=== PATIENT | male | born 1965 | race Caucasian/White ===

== ENCOUNTER 2016-11-27 15:23 | Emergency (ER) | payer MEDICAID, MEDICARE ==
[~2016-11-27] VITALS: Ht 167.6 cm; Wt 80.0 kg
[~2016-11-27 15:23] MED LIST: AMLO-15 PO; CARV12.598 PO; renagel PO
[2016-11-27 15:34] VITALS: Ht 167.6 cm; Wt 80.0 kg
[2016-11-27] MEDS ORDERED: ALBUTEROL 0.083% (NEB) 2.5 MG/3 ML AMP NEB STA (17:17)
[2016-11-27] MEDS ORDERED: SEVE800T7 PO (18:07)
[2016-11-27] MEDS ORDERED: CARV12.579 PO (18:08)
[2016-11-27] MEDS ORDERED: LOSA25TA5 PO (18:08)
[2016-11-27] MEDS ORDERED: AMLO-147 PO (18:08)
[2016-11-27] MEDS ORDERED: OMEP20CA16 PO (18:09)
--- NOTE | 2016-11-27 18:25 | RADRPT ---
PROCEDURE: XR Chest. CLINICAL INDICATION: Shortness of breath. TECHNIQUE: Single frontal view. COMPARISON: 07/12/2013. FINDINGS: The right internal jugular vein tunneled dialysis catheter seen on the prior study has been removed. The lungs are clear. The heart is enlarged. There is calcification in the aorta consistent with atherosclerosis. There is no pleural effusion. There is no pneumothorax. IMPRESSION: 1. Right IJ dialysis catheter removed. 2. Cardiomegaly and atherosclerosis. RPTAT: QQ .Caleb Saldana MD, MD Date Time Electronically viewed and signed by .Caleb Saldana MD, MD on 11/27/2016 18:25 .R/
[2016-11-27] MEDS ORDERED: PRED20TA PO (18:42)
[2016-11-27] MEDS ORDERED: AZIT250T94 PO (18:42)
[2016-11-27] MEDS ORDERED: ALBU8.5H3 INH (18:42)
--- NOTE | 2016-11-27 18:48 | ERD ---
ER Documentation Chief Complaint Date/Time DATE: 11/27/16 TIME: 18:46 Chief Complaint COUGH/CONGESTION CHEST WALL PAIN WORSE W/ COUGH "BLOOD IN PHLEGM" [id number] HPI This is a 51-year-old male who just returned home on November 23 from being on a trip in [facility]. Patient states that while he was in [facility] he started having a cough that was dry the progress and to productive cough with green yellowish sputum. He says on occasion will have a slight blood-streaked but there is no gross blood. Is not short of breath or having any chest pain or fever no dyspnea on exertion or orthopnea. The patient had dialysis today. He said his dialysis was uneventful. ROS All systems reviewed and are negative except as per history of present illness. Medications Home Meds Active Scripts Azithromycin* (Zithromax*) 250 Mg Tablet, 250 MG PO .MarvelPACK DIRECTED, #6 TAB TAKE 500 MG (2 TABS) THE FIRST DAY THEN 250 MG (1 TAB) DAYS 2-5 Prov:ZACKARY QUICK DO 11/27/16 Prednisone* (Prednisone*) 20 Mg Tab, 60 MG PO DAILY for 5 Days, TAB Prov:ZACKARY QUICK DO 11/27/16 Albuterol Sulfate* (Proair HFA*) 8.5 Gm Hfa.aer.ad, 2 PUFF INH Q4, #1 INHALER Prov:ZACKARY QUICK DO 11/27/16 Reported Medications Omeprazole* (Omeprazole*) 20 Mg Capsule.dr, 20 MG PO DAILY, #30 CAP 11/27/16 Carvedilol* (Carvedilol*) 12.5 Mg Tablet, 12.5 MG PO BID, #60 TAB 11/27/16 Losartan Potassium* (Losartan Potassium*) 25 Mg Tablet, 25 MG PO DAILY, TAB 11/27/16 Amlodipine Besylate* (Amlodipine Besylate*) 10 Mg Tablet, 10 MG PO DAILY, #30 TAB 11/27/16 Sevelamer Carbonate* (Renvela*) 800 Mg Tablet, 1600 GM PO WITH MEALS, TAB 11/27/16 Discontinued Reported Medications Carvedilol* (Coreg*) 12.5 Mg Tablet, 12.5 MG PO BID 07/26/13 Amlodipine-Benazepril (Amlodipine-Benazepril) 1 Cap Capsule, 1 CAP PO DAILY 07/26/13 [renagel] No Conflict Check, 1600 MG PO TID 07/26/13 Allergies Allergies: Coded Allergies: No Known Allergy (Unverified , 11/27/16) PMhx/Soc History of Surgery: No Anesthesia Reaction: No Hx Neurological Disorder: No Hx Respiratory Disorders: No Hx Cardiac Disorders: Yes (htn) Hx Psychiatric Problems: No Hx Miscellaneous Medical Probl: No Hx Alcohol Use: Yes (a month ago) Hx Substance Use: No Hx Tobacco Use: Yes (2 months ago) Smoking Status: Unknown if ever smoked FmHx Family History: No coronary disease Physical Exam Vitals Vital Signs Date Time Temp Pulse Resp B/P Pulse Ox O2 Delivery O2 Flow Rate FiO2 11/27/16 17:41 75 18 95 21 11/27/16 17:35 98.0 68 22 132/76 96 11/27/16 15:34 98.3 88 22 154/87 92 Physical Exam Const: Well-developed, well-nourished Head: Atraumatic, normocephalic Eyes: Normal Conjunctiva, PERRLA, EOMI, normal sclera, no nystagmus ENT: Normal External Ears, Nose and Mouth, moist mucus membranes. Neck: Full range of motion. No meningismus, no lymphadenopathy. Resp: Clear to auscultation bilaterally, no wheezing, rhonchi, rales Cardio: Regular rate and rhythm, no murmurs, S1 S2 present Abd: Soft, non tender x 4, non distended. Normal bowel sounds, no guarding or rebound, no pulsitile abdominal masses or bruits Skin: No petechiae or rashes, no ecchymosis , no maculopapular rash Back: No midline or flank tenderness Ext: No cyanosis, or edema, FROM x 4, normal inspection, neurovascularly intact x 4 Neur: Awake and alert, STR 5/5 x 4, sensation intact x 4, no focal findings, cerebellum intact Psych: Normal Mood and Affect Results 24 hrs Current Medications Medications (Trade) Dose Ordered Sig/Cecile Route PRN Reason Start Time Stop Time Status Last Admin Dose Admin Albuterol (Proventil 0.083% (Neb)) 7.5 mg ONCE STAT NEB 11/27/16 17:17 11/27/16 17:20 DC 11/27/16 17:38 Procedures/MDM PROCEDURE: XR Chest. CLINICAL INDICATION: Shortness of breath. TECHNIQUE: Single frontal view. COMPARISON: 07/12/2013. FINDINGS: The right internal jugular vein tunneled dialysis catheter seen on the prior study has been removed. The lungs are clear. The heart is enlarged. There is calcification in the aorta consistent with atherosclerosis. There is no pleural effusion. There is no pneumothorax. IMPRESSION: 1. Right IJ dialysis catheter removed. 2. Cardiomegaly and atherosclerosis. RPTAT: QQ .Caleb Saldana MD, MD Date Time Electronically viewed and signed by .Caleb Saldana MD, MD on 11/27/2016 18:25 .R/ CC: ZACKARY QUICK DO Patient received nebulizer treatment and is feeling better. Will discharge home on prednisone albuterol and a Z-Giovany. Feel the patient has bronchitis. No signs of pneumonia Departure Diagnosis: Primary Impression: Bronchitis Condition: Stable Patient Instructions: Bronchitis, Antiobiotic Treatment (Adult) ZACKARY QUICK DO Nov 27, 2016 18:48
[2016-11-27 18:59] VITALS: BP 142/88; PULSE 70; RESP 18; TEMP 97.9
== END 2016-11-27 19:01 | disposition home or self-care (01) ==
LOC: E/R 15:23
DX: J20.9 Acute bronchitis, unspecified (principal); I10 Essential (primary) hypertension; R40.2142 Coma scale, eyes open, spontaneous, at arrival to emergency department; R40.2252 Coma scale, best verbal response, oriented, at arrival to emergency department; R40.2362 Coma scale, best motor response, obeys commands, at arrival to emergency department
CPT/HCPCS: 36415; 71010; 93005; 94664

== ENCOUNTER 2016-12-14 16:35 | Inpatient (IN) | payer MEDICARE, OTHER ==
[~2016-12-14] VITALS: Ht 167.6 cm; Wt 81.6 kg
[~2016-12-14 16:35] MED LIST changes: +ALBU8.5H3 INH; +AMLO-147 PO; -AMLO-15 PO; +AZIT250T94 PO; +CARV12.579 PO; -CARV12.598 PO; +LOSA25TA5 PO; +OMEP20CA16 PO; +PRED20TA PO; +SEVE800T7 PO; -renagel PO
[2016-12-14] MEDS ORDERED: CEFEPIME 2GM/50 ML (PMX) 50 ML IVPB STA (16:59)
[2016-12-14] MEDS ORDERED: VANCOMYCIN 1 GM (PMX) 250 ML IVPB ONE (17:00)
[2016-12-14] MEDS ORDERED: ACETAMINOPHEN 325 MG TAB PO ONE (17:00)
[2016-12-14 17:33] LABS: BASOPHILS % 0.3 % (0.0-2.0); EOSINOPHILS # 0.1 10^3/ul (0.0-0.5); EOSINOPHILS % 1.2 % (0.0-7.0); HEMATOCRIT 25.6 % (42.0-52.0); HEMOGLOBIN 8.3 g/dl (14.0-18.0); LYMPHOCYTES # 0.7 10^3/ul (0.8-2.9); LYMPHOCYTES % 10.9 % (15.0-51.0); MEAN CORPUSCULAR HEMOGLOBIN 30.6 pg (29.0-33.0); MEAN CORPUSCULAR HGB CONC 32.4 g/dl (32.0-37.0); MEAN CORPUSCULAR VOLUME 94.5 fl (82.0-101.0); MEAN PLATELET VOLUME 10.6 fl (7.4-10.4); MONOCYTE # 0.7 10^3/ul (0.3-0.9); MONOCYTES % 10.7 % (0.0-11.0); NEUTROPHIL # 4.9 10^3/ul (1.6-7.5); NEUTROPHILS % 76.3 % (39.0-77.0); PLATELET COUNT 160 10^3/UL (140-415); RED BLOOD COUNT 2.71 10^6/ul (4.70-6.10); RED CELL DISTRIBUTION WIDTH 15.6 % (11.5-14.5); WHITE BLOOD COUNT 6.4 10^3/ul (4.8-10.8)
[2016-12-14 17:47] LABS: INR 1.18; PROTIME 15.1 Sec (12.2-14.2); PT RATIO 1.2
[2016-12-14 17:48] LABS: PARTIAL THROMBOPLASTIN TIME 42.2 Sec (25.0-35.0)
[2016-12-14 17:52] LABS: ALBUMIN 4.1 g/dl (3.3-4.9); ALBUMIN/GLOBULIN RATIO 1.46; BILIRUBIN,INDIRECT 0.2 mg/dl (0-1.1); BILIRUBIN,TOTAL 0.2 mg/dl (0.2-1.3); CALCIUM 9.1 mg/dl (8.4-10.2); CREATININE 7.42 mg/dl (0.61-1.24); POTASSIUM 4.6 mmol/L (3.5-5.1); TOTAL PROTEIN 6.9 g/dl (6.1-8.1)
--- NOTE | 2016-12-14 17:52 | RADRPT ---
PROCEDURE: XR Chest. CLINICAL INDICATION: Cough. Sepsis. TECHNIQUE: Single frontal view. COMPARISON: 11/27/2016. FINDINGS: There is extensive patchy bilateral pulmonary air space disease consistent with bilateral multifocal pneumonia or less likely pulmonary edema. The heart is enlarged. There is calcification in the aorta consistent with atherosclerosis. There is no pleural effusion. There is no pneumothorax. IMPRESSION: 1. Probable bilateral multifocal pneumonia. Less likely pulmonary edema. 2. Cardiomegaly and atherosclerosis. RPTAT: QQ .Caleb Saldana MD, MD Date Time Electronically viewed and signed by .Caleb Saldana MD, MD on 12/14/2016 17:52 .R/
[2016-12-14 18:03] LABS: TROPONIN-I 0.026 ng/ml (0.00-0.12)
[2016-12-14 18:04] LABS: ADD UMIC YES; UR ASCORBIC ACID NEGATIVE (NEGATIVE); UR BACTERIA FEW /HPF (NONE SEEN); UR BILIRUBIN (Dip) NEGATIVE (NEGATIVE); UR BLOOD (Dip) NEGATIVE (NEGATIVE); UR CLARITY SLIGHTLY CLOUDY (CLEAR); UR COLOR YELLOW (YELLOW); UR GLUCOSE (Dip) 2+ mg/dL (NEGATIVE); UR KETONES (Dip) NEGATIVE (NEGATIVE); UR LEUKOCYTE ESTERASE (Dip) NEGATIVE Leu/ul (NEGATIVE); UR NITRITE (Dip) NEGATIVE (NEGATIVE); UR RBC 1 /HPF (0-5); UR SQUAMOUS EPITHELIAL CELL FEW /HPF (FEW); UR TOTAL PROTEIN (Dip) 3+ mg/dl (NEGATIVE); UR UROBILINOGEN (Dip) NEGATIVE (NEGATIVE)
--- NOTE | 2016-12-14 18:05 | ERA ---
ER Documentation Chief Complaint Date/Time DATE: 12/14/16 TIME: 17:58 Chief Complaint coughing up blood since yesterday, sob and cough x 1 month HPI 51-year-old male history of end-stage renal disease on dialysis who had dialysis today who presents with multiple complaints. He describes shortness of breath and cough for approximately 1 month that is worse over the past 24-48 hours. He is found to be significantly hypoxic at triage. He describes cough over the last several days with subjective fevers. The cough is productive of greenish and bloody sputum. He denies any weight loss, night sweats, exposure to tuberculosis recent travel or incarceration. No pleuritic pain or lower extremity swelling. ROS All systems reviewed and are negative except as per history of present illness. Medications Home Meds Active Scripts Albuterol Sulfate* (Proair HFA*) 8.5 Gm Hfa.aer.ad, 2 PUFF INH Q4, #1 INHALER Prov:ZACKARY QUICK DO 11/27/16 Reported Medications Omeprazole* (Omeprazole*) 20 Mg Capsule.dr, 20 MG PO DAILY, #30 CAP 11/27/16 Carvedilol* (Carvedilol*) 12.5 Mg Tablet, 12.5 MG PO BID, #60 TAB 11/27/16 Losartan Potassium* (Losartan Potassium*) 25 Mg Tablet, 25 MG PO DAILY, TAB 11/27/16 Amlodipine Besylate* (Amlodipine Besylate*) 10 Mg Tablet, 10 MG PO DAILY, #30 TAB 11/27/16 Sevelamer Carbonate* (Renvela*) 800 Mg Tablet, 1600 GM PO WITH MEALS, TAB 11/27/16 Discontinued Scripts Azithromycin* (Zithromax*) 250 Mg Tablet, 250 MG PO .KENNY DIRECTED, #6 TAB TAKE 500 MG (2 TABS) THE FIRST DAY THEN 250 MG (1 TAB) DAYS 2-5 Prov:ZACKARY QUICK DO 11/27/16 Prednisone* (Prednisone*) 20 Mg Tab, 60 MG PO DAILY for 5 Days, TAB Prov:ZACKARY QUICK DO 11/27/16 Allergies Allergies: Coded Allergies: No Known Allergy (Unverified , 12/14/16) PMhx/Soc History of Surgery: No Anesthesia Reaction: No Hx Neurological Disorder: No Hx Respiratory Disorders: No Hx Cardiac Disorders: Yes (htn) Hx Psychiatric Problems: No Hx Miscellaneous Medical Probl: No Hx Alcohol Use: Yes (a month ago) Hx Substance Use: No Hx Tobacco Use: Yes (2 months ago) Smoking Status: Current some day smoker FmHx Family History: No diabetes Physical Exam Vitals Vital Signs Date Time Temp Pulse Resp B/P Pulse Ox O2 Delivery O2 Flow Rate FiO2 12/14/16 18:47 99.0 95 25 193/109 94 Nasal Cannula 4.0 12/14/16 17:21 Nasal Cannula 2 12/14/16 16:41 100.1 107 26 185/88 84 Physical Exam General: Well developed, well nourished, no acute distress Head: Normocephalic, atraumatic. Eyes: Pupils equally reactive, EOM intact ENT: Moist mucous membranes Neck: Supple, no lymphadenopathy Respiratory: Rhonchi bilaterally right greater than left Cardiovascular: Slight tachycardia, no murmurs, rubs, or gallops Abdominal: Soft, non-tender, non-distended, no peritoneal signs : Deferred MSK: No edema, no unilateral swelling, 5/5 strength, right upper extremity AV fistula with good bruit and thrill Neurologic: Alert and oriented, moving all extremities, normal speech, no focal weakness, no cerebellar signs Skin: No rash Psych: Normal mood Result Diagram: 12/14/160 12/14/16 1710 Results 24 hrs Laboratory Tests Test 12/14/16 17:10 12/14/16 17:30 White Blood Count 6.410^3/ul Red Blood Count 2.7110^6/ul Hemoglobin 8.3g/dl Hematocrit 25.6% Mean Corpuscular Volume 94.5fl Mean Corpuscular Hemoglobin 30.6pg Mean Corpuscular Hemoglobin Concent 32.4g/dl Red Cell Distribution Width 15.6% Platelet Count 34604^3/UL Mean Platelet Volume 10.6fl Neutrophils % 76.3% Lymphocytes % 10.9% Monocytes % 10.7% Eosinophils % 1.2% Basophils % 0.3% Nucleated Red Blood Cells % 0.0/100WBC Neutrophils # 4.910^3/ul Lymphocytes # 0.710^3/ul Monocytes # 0.710^3/ul Eosinophils # 0.110^3/ul Basophils # 0.010^3/ul Nucleated Red Blood Cells # 0.010^3/ul Prothrombin Time 15.1Sec Prothrombin Time Ratio 1.2 INR International Normalized Ratio 1.18 Activated Partial Thromboplast Time 42.2Sec Sodium Level 141mmol/L Potassium Level 4.6mmol/L Chloride Level 93mmol/L Carbon Dioxide Level 34mmol/L Anion Gap 19 Blood Urea Nitrogen 32mg/dl Creatinine 7.42mg/dl Glucose Level 102mg/dl Lactic Acid Level 1.2mmol/L Calcium Level 9.1mg/dl Total Bilirubin 0.2mg/dl Direct Bilirubin 0.00mg/dl Indirect Bilirubin 0.2mg/dl Aspartate Amino Transf (AST/SGOT) 13IU/L Alanine Aminotransferase (ALT/SGPT) 32IU/L Alkaline Phosphatase 81IU/L Troponin I 0.026ng/ml Total Protein 6.9g/dl Albumin 4.1g/dl Globulin 2.80g/dl Albumin/Globulin Ratio 1.46 Urine Color YELLOW Urine Clarity SLIGHTLY CLOUDY Urine pH 9.0 Urine Specific [place] 1.010 Urine Ketones NEGATIVEmg/dL Urine Nitrite NEGATIVEmg/dL Urine Bilirubin NEGATIVEmg/dL Urine Urobilinogen NEGATIVEmg/dL Urine Leukocyte Esterase NEGATIVELeu/ul Urine Microscopic RBC 1/HPF Urine Microscopic WBC 3/HPF Urine Squamous Epithelial Cells FEW/HPF Urine Bacteria FEW/HPF Urine Hemoglobin NEGATIVEmg/dL Urine Glucose 2+mg/dL Urine Total Protein 3+mg/dl Current Medications Medications (Trade) Dose Ordered Sig/Cecile Route PRN Reason Start Time Stop Time Status Last Admin Dose Admin Cefepime HCl 50 ml @ 100 mls/hr ONCE STAT IVPB 12/14/16 16:59 12/14/16 17:28 DC 12/14/16 17:41 Vancomycin HCl (Vancocin) 250 ml @ 125 mls/hr ONCE ONCE IVPB 12/14/16 17:00 12/14/16 18:59 Acetaminophen (Tylenol Tab) 650 mg ONCE ONCE PO 12/14/16 17:00 12/14/16 17:03 DC 12/14/16 17:40 Ondansetron HCl (Zofran Inj) 4 mg BRIDGE ORDER PRN IV NAUSEA AND/OR VOMITING 12/14/16 19:00 12/15/16 18:59 Acetaminophen (Tylenol Tab) 650 mg ER BRIDGE PRN PO MILD PAIN/FEVER 12/14/16 19:00 12/15/16 18:59 Procedures/MDM EKG, MONITORS, & DIAGNOSTIC IMAGING: EKG: I reviewed and interpreted a 12-lead EKG. Rhythm: Normal sinus rhythm Ectopy: None Intervals: No abnormalities ST segments: No elevations or depressions T waves: No contiguous inversions Chest x-ray: I reviewed and interpreted a 1 view of the chest Mediastinum: No enlargement Cardiac silhouette: cardiomegaly Airspace: Interstitial process, right interstitial infiltrates Bones: No evidence of fracture CTPA IMPRESSION: No CT evidence for pulmonary embolus. Diffuse patchy and confluent perihilar ground-glass opacities with relative sparing of the left lower lobe as well as mediastinal lymphadenopathy may be due to multifocal pneumonia or ARDS among other etiologies. Clinical correlation is recommended. Mild cardiomegaly. These findings were discussed with Rom Hogue over the phone on 2016 at 6:23 PM . RPTAT: EE LAB INTERPRETATION: Anemia, no significant leukocytosis MEDICAL DECISION MAKING: The patient presents the emergency room with low-grade fever, tachycardia, cough that is productive of greenish sputum that is slightly blood-tinged. His symptoms are not consistent with tuberculosis. However, given his presentation I am concerned for possible healthcare associated pneumonia. Additionally, consider pulmonary embolism. The patient's chest x-ray does show significant infiltrates on the right side however with the patient's significant hypoxia I cannot rule out pulmonary embolism. I believe a CTPA to further delineate this process would be appropriate. The patient will will require dialysis within 24 hours. ER COURSE: Empiric antibiotics were provided after blood cultures that include vancomycin and cefepime. The patient was given supplemental oxygen with improvement of his hypoxia. No indication for intubation or BiPAP. The patient has no evidence of pulmonary embolism. No evidence of ARDS clinically. The patient has improved clinically and has no evidence of severe sepsis or septic shock. The patient has a normal lactic acid. Technically the patient has hypoxia making him severe sepsis. I kept the patient and/or family informed of laboratory and diagnostic imaging results throughout the emergency room course. DISPOSITION PLAN: Medical surgical admission for management of healthcare associated pneumonia CONSULTATION: Accepting care team and consultations: I discussed the current laboratory data, diagnostic imaging and emergency care provided. Admitting team: Dr. Jacques Admitting team indication: Insurance directed Sepsis Documentation: Patient's infectious symptoms have not stabilized and the patient is at risk of rapid decompensation. The patient will be admitted for careful hydration, antibiotic therapy, and infectious source control. SEVERE SEPSIS CRITERIA: Infectious source: Healthcare associated pneumonia End organ damage indicated by: Acute Resp Failure (sat < 92% w/o oxygen) SEPSIS MANAGEMENT Time of recognition of severe sepsis/septic shock: The patient does not meet criteria for septic shock 3 HOUR BUNDLE Blood cultures x 2 before broad-spectrum antibiotics: Yes 30 ml/kg NS bolus full 30/kg bolus not provided given the patient's history of end-stage renal disease and concern for volume overload Initial lactate less than 2 Repeat lactate pending repeat SEPTIC SHOCK ASSESSMENT: No lactic acid > 4.0 No persistent hypotension (SBP < 90 or 40 mmHg drop, MAP < 65) despite 30 mL/kg IV fluid bolus VOLUME REASSESSMENT FOR SEPTIC SHOCK: Reevaluation Time: 6:57 PM Temperature of 99.0, pulse 95, respiratory rate 25, blood pressure 193/109, pulse ox 94 Heart Regular rate & rhythm Lungs rhonchi bilaterally Skin Warm & dry Cap Refill Less than 2 seconds Peripheral pulses Radially present PERSISTENT HYPOTENSION TREATMENT: Comfort care No Central line Not Required Vasopressor started Not required I considered further perfusion assessment with CVP measurement, SCVO2, bedside ultrasound volume assessment, passive leg raise, trial of further fluid bolus. And proceeded with gentle fluid bolus of NSS, broad spectrum antbiotics, and admission. CRITICAL CARE Critical care time 35 minutes Emergent fluid management while maintaining close respiratory support. Provision of immediate and broad-spectrum antibiotic therapy. Simultaneous assessment for possible sources in order to direct targeted therapy. Consideration for invasive and chemical support to prevent cardiopulmonary collapse. Critical care time is independent of procedures performed. Departure Diagnosis: Primary Impression: End stage renal disease on dialysis Additional Impressions: Severe sepsis Healthcare-associated pneumonia Condition: Stable ROM KIM MD Dec 14, 2016 18:05
--- NOTE | 2016-12-14 18:23 | RADRPT ---
PROCEDURE: CTA Chest with contrast and with 3-D reconstructions CLINICAL INDICATION: Chest pain, Rule Out Pulmonary Emboli TECHNIQUE: The study was performed utilizing multidetector CT scanner. Direct spiral axial section s were obtained from the thoracic inlet to the upper abdomen with the use of intravenous contrast ma terial. Sagittal, coronal and 3-D reformations were obtained. The images were reviewed on a PACS wor kstation. DLP 643.09 mGycm CTDIvol 28.17, 16.57 mGy One or more of the following dose reduction techniques were used: - Automated exposure control. - Adjustment of the mA and/or kV according to patient size. - Use of iterative reconstruction technique. COMPARISON: No prior studies are available for comparison. FINDINGS: There are no pulmonary emboli. There is a sub-centimeter low density. There are patchy and confluent perihilar ground-glass opacities diffusely with relative sparing of t he left lower lobe. There is no pleural fluid. There is no pneumothorax. There is mild cardiomegaly. There is no pericardial fluid. The aorta is within normal limits. The re is a 1.2 cm in short axis AP window node. There is pretracheal lymphadenopathy measuring up to 1 .2 cm. There is a partially calcified 1.6 cm subcarinal lymph node. There is bilateral hilar lymph adenopathy including a 1.1 cm partially calcified left hilar lymph node on series 3, image 118. The visualized portions of the upper abdomen are unremarkable. Osseous and soft tissue structures are within normal limits. IMPRESSION: No CT evidence for pulmonary embolus. Diffuse patchy and confluent perihilar ground-glass opacities with relative sparing of the left lowe r lobe as well as mediastinal lymphadenopathy may be due to multifocal pneumonia or ARDS among other etiologies. Clinical correlation is recommended. Mild cardiomegaly. These findings were discussed with Rom Hogue over the phone on 12/14/2016 at 6:23 PM . RPTAT: EE Physician Gabino Date Time Electronically viewed and signed by Isael Washburn Physician on 12/14/2016 18:23 RA/
[2016-12-14] MEDS ORDERED: ONDANSETRON 4 MG INJ IV PRN ×2 (19:00→22:00)
[2016-12-14] MEDS ORDERED: ACETAMINOPHEN 325 MG TAB PO PRN ×2 (19:00→22:00)
[2016-12-14] MEDS ORDERED: LABETALOL HCL 20MG INJ IV ONE ×2 (19:30)
[2016-12-14] MEDS ORDERED: VANCOMYCIN IV PER PHARMACY XX SCH (21:00)
--- NOTE | 2016-12-14 21:36 | HP ---
Date/Time of Note Date/Time of Note DATE: 12/14/16 TIME: 21:30 Assessment/Plan VTE Prophylaxis VTE Prophylaxis Intervention: SCD's Assessment/Plan Chief Complaint/Hosp Course This is a 51-year-old male being admitted to the telemetry floor for: #1 Sepsis: Likely secondary to underlying pneumonia. Community-acquired versus healthcare associated pneumonia. Patient does report recent visit to the hospital last 2 weeks. He also reports having traveled to [facility] a month ago when his cough started. X-ray and CT scan did not show any evidence of any focal cavitary lesion. He denies any night sweats or chills or weight loss. At the current time we will treat him with vancomycin IV and cefepime which will be renally dosed. My suspicion for tuberculosis is less likely, however I will check quantiferon gold due to his travel history. Will check sputum sputum cultures as well as blood and urine cultures. We will also order an ABG in the morning. Patient currently right now is not in any distress. There was a mention of ARDS on the CAT scan however I do not suspect that at this time based on the patient's clinical presentation however I will obtain an ABG in the morning. Will consult pulmonology for further treatment strategy. #2 pneumonia: Community acquired versus healthcare associated. Please see #1. #3 end-stage renal disease: Patient received dialysis yesterday. Will continue current home medications. Will renally dose all medications. Potassium is within normal values at this time. BUN is 32. And will consult nephrology. #4 Normocytic anemia: Likely secondary to end-stage renal disease. At the current time we will continue to monitor this. Defer further treatment to nephrology in the setting of end-stage renal disease. Possible Procrit/Epogen injections via nephrology. #5 hypertension: Continue home medications. #6 DVT and GI prophylaxis: SCDs, Protonix Further treatment strategy will be implemented as per the clinical course. Problems: HPI/ROS Admit Date/Time Admit Date/Time Hx of Present Illness Chief complaint: Cough 1 month. 51-year-old male history of end-stage renal disease on dialysis who had dialysis today who presents with multiple complaints. He describes shortness of breath and cough for approximately 1 month that is worse over the past 24-48 hours. He is found to be significantly hypoxic at triage. He describes cough over the last several days with subjective fevers. The cough is productive of greenish and bloody sputum. He denies any weight loss, night sweats, denies any exposure to anyone with tuberculosis, no recent incarcerations. He does report that he went to [facility] approximately 1 month ago and that is where his cough started. No pleuritic pain or lower extremity swelling. He was also seen in the ER approximately 2 weeks ago but was subsequently discharged. Allergies: NKDA Medications: See MARKY TREADWELL Const: As per HPI Eyes : No pain discharge or redness or change in visual acuity ENT: No pain, sore throat, congestion, congestion, dysphagia or discharge Respiratory: As per HPI Cardiovascular: No chest pain, palpitation, PND, or edema GI : no change in appetite, abdominal pain, nausea, vomiting, diarrhea, constipation, or change in the color his stool Genitourinary: No dysuria, hematuria, flank pain , discharge or CVA tenderness Musculoskeletal: No joint pain, back pain, neck pain, restricted range of motion in neck or joints Skin: No rash, bruising or hives Neuro: No headache, dizziness, syncope, seizure, focal weakness Endocrine: No polyuria, polydipsia, temperature intolerance Psych: No hallucination, depression, anxiety or suicidal ideation PMH/Family/Social Past Medical History Hypertension, end-stage renal disease Past Surgical History Right upper extremity AV fistula Family History Significant Family History: no pertinent family hx Social History Alcohol Use: none Smoking Status: Former smoker Drug Use: none Exam/Review of Systems Vital Signs Vitals Vital Signs Date Time Temp Pulse Resp B/P Pulse Ox O2 Delivery O2 Flow Rate FiO2 12/14/16 20:36 173/100 12/14/16 20:23 99.0 88 18 94 Nasal Cannula 4.0 Exam Exam General: Patient lying comfortably in bed in no acute distress HEENT: Atraumatic, normocephalic. The pupils are equal, round and reactive. Extraocular motor are intact Neck: Supple with full range of motion. No rigidity or meningismus Chest: Nontender Lungs: Coarse breath sounds bilaterally Heart: Normal S1-S2, Regular rhythm and rate. No murmur, S3, or S4 Abdomen: Soft , nontender, nondistended , bowel sounds are present. No guarding no rebound tenderness , No masses or organomegaly. No costovertebral temporal angle mass Extremities: Normal to inspection, no edema no cyanosis Neurologic: Normal mental status, speech normal, cranial nerves II through XII are intact, motor and sensory are intact, no focal weakness Additional Comments PROCEDURE: CTA Chest with contrast and with 3-D reconstructions CLINICAL INDICATION: Chest pain, Rule Out Pulmonary Emboli TECHNIQUE: The study was performed utilizing multidetector CT scanner. Direct spiral axial sections were obtained from the thoracic inlet to the upper abdomen with the use of intravenous contrast material. Sagittal, coronal and 3- D reformations were obtained. The images were reviewed on a PACS workstation. DLP 643.09 mGycm CTDIvol 28.17, 16.57 mGy One or more of the following dose reduction techniques were used: - Automated exposure control. - Adjustment of the mA and/or kV according to patient size. - Use of iterative reconstruction technique. COMPARISON: No prior studies are available for comparison. FINDINGS: There are no pulmonary emboli. There is a sub-centimeter low density. There are patchy and confluent perihilar ground-glass opacities diffusely with relative sparing of the left lower lobe. There is no pleural fluid. There is no pneumothorax. There is mild cardiomegaly. There is no pericardial fluid. The aorta is within normal limits. There is a 1.2 cm in short axis AP window node. There is pretracheal lymphadenopathy measuring up to 1.2 cm. There is a partially calcified 1.6 cm subcarinal lymph node. There is bilateral hilar lymphadenopathy including a 1.1 cm partially calcified left hilar lymph node on series 3, image 118. The visualized portions of the upper abdomen are unremarkable. Osseous and soft tissue structures are within normal limits. IMPRESSION: No CT evidence for pulmonary embolus. Diffuse patchy and confluent perihilar ground-glass opacities with relative sparing of the left lower lobe as well as mediastinal lymphadenopathy may be due to multifocal pneumonia or ARDS among other etiologies. Clinical correlation is recommended. Mild cardiomegaly. These findings were discussed with Rom Hogue over the phone on 2016 at 6:23 PM . RPTAT: EE Isael Washburn, Physician Date Time Electronically viewed and signed by Isael Washburn, Physician on 12/14/2016 18:23 RA/ PROCEDURE: XR Chest. CLINICAL INDICATION: Cough. Sepsis. TECHNIQUE: Single frontal view. COMPARISON: 11/27/2016. FINDINGS: There is extensive patchy bilateral pulmonary air space disease consistent with bilateral multifocal pneumonia or less likely pulmonary edema. The heart is enlarged. There is calcification in the aorta consistent with atherosclerosis. There is no pleural effusion. There is no pneumothorax. IMPRESSION: 1. Probable bilateral multifocal pneumonia. Less likely pulmonary edema. 2. Cardiomegaly and atherosclerosis. RPTAT: QQ .Caleb Saldana MD, MD Date Time Electronically viewed and signed by .Caleb Saldana MD, MD on 12/14/2016 17:52 Labs Result Diagram: 12/14/[id number]/[id number] JOSE ROWLAND Dec 14, 2016 21:36
[2016-12-14] MEDS ORDERED: BISACODYL (EC) 5 MG TAB PO PRN (22:00)
[2016-12-14] MEDS ORDERED: DOCUSATE SODIUM 100 MG CAP PO PRN (22:00)
[2016-12-14] MEDS ORDERED: NACL 0.9% 3 ML SYG IV SCH (22:00)
[2016-12-14] MEDS: ALBUTEROL 18 GM INHALER INH SCH (22:45)
[2016-12-14] MEDS: LOSARTAN 25 MG TAB PO SCH (22:46)
[2016-12-14] MEDS: AMLODIPINE 10 MG TAB PO SCH (22:46)
[2016-12-14 23:28] VITALS: TEMP 99.8
[2016-12-15] VITALS (18 sets, daily range): BP systolic 123–169; BP diastolic 70–97; PULSE 76–96; RESP 18–20; Ht 167.6 cm; Wt 81.6 kg
[2016-12-15] MEDS: ALBUTEROL 18 GM INHALER INH SCH ×6 (01:26→20:44)
[2016-12-15] MEDS: PANTOPRAZOLE 40 MG INJ IV SCH (06:33)
[2016-12-15 08:39] LABS: ABNORMAL IP MESSAGE 1; BASOPHILS % 0.3 % (0.0-2.0); EOSINOPHILS # 0.2 10^3/ul (0.0-0.5); EOSINOPHILS % 2.4 % (0.0-7.0); HEMOGLOBIN 7.8 g/dl (14.0-18.0); LYMPHOCYTES # 0.5 10^3/ul (0.8-2.9); LYMPHOCYTES % 8.4 % (15.0-51.0); MEAN CORPUSCULAR HEMOGLOBIN 29.5 pg (29.0-33.0); MEAN CORPUSCULAR HGB CONC 31.2 g/dl (32.0-37.0); MEAN CORPUSCULAR VOLUME 94.7 fl (82.0-101.0); MEAN PLATELET VOLUME 11.2 fl (7.4-10.4); MONOCYTE # 0.7 10^3/ul (0.3-0.9); MONOCYTES % 10.5 % (0.0-11.0); NEUTROPHIL # 4.9 10^3/ul (1.6-7.5); NEUTROPHILS % 77.8 % (39.0-77.0); PLATELET COUNT 141 10^3/UL (140-415); POSITIVE DIFF @See below; RED BLOOD COUNT 2.64 10^6/ul (4.70-6.10); RED CELL DISTRIBUTION WIDTH 15.7 % (11.5-14.5); WHITE BLOOD COUNT 6.3 10^3/ul (4.8-10.8)
[2016-12-15] MEDS: SEVELAMER CARBONATE 0.8 GM PKT PO SCH ×3 (08:58→18:34)
[2016-12-15] MEDS: AMLODIPINE 10 MG TAB PO SCH (08:59)
[2016-12-15] MEDS: LOSARTAN 25 MG TAB PO SCH (08:59)
[2016-12-15 09:19] LABS: ALBUMIN 3.4 g/dl (3.3-4.9); ALBUMIN/GLOBULIN RATIO 1.36; BILIRUBIN,INDIRECT 0.1 mg/dl (0-1.1); BILIRUBIN,TOTAL 0.1 mg/dl (0.2-1.3); CHOL/HDL RATIO 3.5 RATIO; CREATININE 8.93 mg/dl (0.61-1.24); MAGNESIUM 2.2 mg/dl (1.7-2.5); PHOSPHORUS 5.5 mg/dl (2.5-4.9); POTASSIUM 5.3 mmol/L (3.5-5.1); TOTAL PROTEIN 5.9 g/dl (6.1-8.1)
[2016-12-15 09:26] LABS: AADO2 Arterial 86.8 mmHg (7.0-24.0); Allen Test ACCEPTAB; Arterial Base Excess 1.4 mmol/L (-3.0-3); Arterial COHb 0.4 % (0.0-3.0); Arterial Fraction of Oxyhgb 89.5 % (93.0-99.0); Arterial HCO3 27.5 mmol/L (22.0-26.0); Arterial MetHb 0.4 % (0.0-1.5); Arterial Total Hemglobin 8.6 g/dl (12.0-18.0); MODE NASAL CANNULA
[2016-12-15 09:32] LABS: THYROID STIMULATING HORMONE 0.809 MIU/L (0.465-4.680)
--- NOTE | 2016-12-15 15:20 | PN ---
Date/Time of Note Date/Time of Note DATE: 12/15/16 TIME: 15:15 Assessment/Plan VTE Prophylaxis VTE Prophylaxis Intervention: heparin Lines/Catheters IV [facility] Saline Lock Urinary Cath still in place: No Assessment/Plan Chief Complaint/Hosp Course 51 yo male with ESRD on HD who presents with acute hypoxic respiratory failure Acute hypoxic respiratory failure: - Infiltrates and hypoxia unlikely related to volume overload, appears euvolemic - Currently 85% on RA, needs 4 L by NC - Will treat empirically for HAP (recent azithro course completed) with vanco/ cef - AFB r/o - Respiratory isolation - Bronch if needed ESRD: - HD per renal Hypertension: - Continue home meds Hyperphostphatemia: - COntinue phos binders Metabolic acidosis: - Continue alkali Discharge when workup complete and no longer hypoxic Problems: Subjective 24 Hr Interval Summary Free Text/Dictation Slightly improved respiratory status since arrival, but still hypoxic to 85% on RA No phlegm Exam/Review of Systems Vital Signs Vitals Vital Signs Date Time Temp Pulse Resp B/P Pulse Ox O2 Delivery O2 Flow Rate FiO2 12/15/16 12:12 84 12/15/16 11:49 98.6 20 163/86 92 12/15/16 07:30 Nasal Cannula 2.0 Exam Well appearing Nonlabored breathing, lungs clear b/l RRR RUE AV fisulta Flat neck veins without JVD No perihperal edema Acanthosis of neck noted Results Result Diagram: 12/15/16 0756 12/15/16 0756 Results 24 hrs Laboratory Tests Test 12/14/16 17:10 12/14/16 17:30 12/14/16 19:35 12/14/16 20:48 White Blood Count 6.4 Red Blood Count 2.71 L Hemoglobin 8.3 L Hematocrit 25.6 L Mean Corpuscular Volume 94.5 Mean Corpuscular Hemoglobin 30.6 Mean Corpuscular Hemoglobin Concent 32.4 Red Cell Distribution Width 15.6 H Platelet Count 160 Mean Platelet Volume 10.6 H Neutrophils % 76.3 Lymphocytes % 10.9 L Monocytes % 10.7 Eosinophils % 1.2 Basophils % 0.3 Nucleated Red Blood Cells % 0.0 Neutrophils # 4.9 Lymphocytes # 0.7 L Monocytes # 0.7 Eosinophils # 0.1 Basophils # 0.0 Nucleated Red Blood Cells # 0.0 Prothrombin Time 15.1 H Prothrombin Time Ratio 1.2 INR International Normalized Ratio 1.18 Activated Partial Thromboplast Time 42.2 H Sodium Level 141 Potassium Level 4.6 Chloride Level 93 L Carbon Dioxide Level 34 H Anion Gap 19 H Blood Urea Nitrogen 32 H Creatinine 7.42 H Glucose Level 102 Lactic Acid Level 1.2 0.7 0.9 Calcium Level 9.1 Total Bilirubin 0.2 Direct Bilirubin 0.00 Indirect Bilirubin 0.2 Aspartate Amino Transf (AST/SGOT) 13 L Alanine Aminotransferase (ALT/SGPT) 32 Alkaline Phosphatase 81 Troponin I 0.026 Total Protein 6.9 Albumin 4.1 Globulin 2.80 Albumin/Globulin Ratio 1.46 Urine Color YELLOW Urine Clarity SLIGHTLY CLOUDY A Urine pH 9.0 Urine Specific [place] 1.010 Urine Ketones NEGATIVE Urine Nitrite NEGATIVE Urine Bilirubin NEGATIVE Urine Urobilinogen NEGATIVE Urine Leukocyte Esterase NEGATIVE Urine Microscopic RBC 1 Urine Microscopic WBC 3 Urine Squamous Epithelial Cells FEW Urine Bacteria FEW A Urine Hemoglobin NEGATIVE Urine Glucose 2+ H Urine Total Protein 3+ H Test 12/15/16 07:00 12/15/16 07:56 Blood Gas Specimen Source Blood arterial Arterial Blood Date Drawn 12/15/2016 7:30:06 AM Arterial Blood pH (Temp corrected) 7.344 L Arterial Blood pCO2 (Temp correct) 51.7 H Arterial Blood pO2 (Temp corrected) 66.4 L Arterial Blood HCO3 27.5 H Arterial Blood Base Excess 1.4 Arterial Blood Oxygen Saturation 90.2 L [place] Test ACCEPTAB Arterial Blood Gas Puncture Site Left Radial Arterial Blood Carboxyhemoglobin 0.4 Arterial Blood Methemoglobin 0.4 Blood Gas A-a O2 Differential 86.8 H Oxyhemoglobin Percent 89.5 L Total Hemoglobin 8.6 L Blood Gas Temperature 37.0 Blood Gas Modality NASAL CANNULA FiO2 30.0 Blood Gas Notified Whom JLD Blood Gas Notified Time 12/15/2016 7:58:43 AM White Blood Count 6.3 Red Blood Count 2.64 L Hemoglobin 7.8 L Hematocrit 25.0 L Mean Corpuscular Volume 94.7 Mean Corpuscular Hemoglobin 29.5 Mean Corpuscular Hemoglobin Concent 31.2 L Red Cell Distribution Width 15.7 H Platelet Count 141 Mean Platelet Volume 11.2 H Neutrophils % 77.8 H Lymphocytes % 8.4 L Monocytes % 10.5 Eosinophils % 2.4 Basophils % 0.3 Nucleated Red Blood Cells % 0.0 Neutrophils # 4.9 Lymphocytes # 0.5 L Monocytes # 0.7 Eosinophils # 0.2 Basophils # 0.0 Nucleated Red Blood Cells # 0.0 Sodium Level 141 Potassium Level 5.3 H Chloride Level 94 L Carbon Dioxide Level 31 Anion Gap 21 H Blood Urea Nitrogen 48 #H Creatinine 8.93 H Glucose Level 91 Hemoglobin A1c 4.9 Calcium Level 9.0 Phosphorus Level 5.5 H Magnesium Level 2.2 Total Bilirubin 0.1 L Direct Bilirubin 0.00 Indirect Bilirubin 0.1 Aspartate Amino Transf (AST/SGOT) 14 L Alanine Aminotransferase (ALT/SGPT) 27 Alkaline Phosphatase 87 Total Protein 5.9 #L Albumin 3.4 Globulin 2.50 Albumin/Globulin Ratio 1.36 Triglycerides Level 117 Cholesterol Level 117 LDL Cholesterol, Calculated 61 HDL Cholesterol 33 Cholesterol/HDL Ratio 3.5 Thyroid Stimulating Hormone (TSH) 0.809 Medications Medications Current Medications Cefepime HCl (Maxipime 1gm/50 ml (Pmx)) 50 ml @ 100 mls/hr Q24H IVPB ; Start at 17:00 Amlodipine Besylate (Norvasc) 10 mg DAILY PO Last administered on 12/15/16 08: 59; Admin Dose 10 MG; Start 12/14/16 at 22:00 Carvedilol (Coreg) 12.5 mg BID PO Last administered on 12/15/16 08:59; Admin Dose 12.5 MG; Start 12/14/16 at 22:00 Losartan Potassium (Cozaar) 25 mg DAILY PO Last administered on 12/15/16 08:59 ; Admin Dose 25 MG; Start 12/14/16 at 22:00 Ondansetron HCl (Zofran Inj) 4 mg Q6H PRN IV NAUSEA AND/OR VOMITING; Start at 22:00 Acetaminophen (Tylenol Tab) 650 mg Q6H PRN PO PAIN LEVEL 1-3 OR FEVER; Start at 22:00 Docusate Sodium (Colace) 100 mg Q12H PRN PO CONSTIPATION; Start 12/14/16 at 22: 00 Bisacodyl (Dulcolax) 5 mg DAILY PRN PO CONSTIPATION; Start 12/14/16 at 22:00 Pantoprazole (Protonix Iv) 40 mg DAILY@06 IV Last administered on 7/26/17at 06: 33; Admin Dose 40 MG; Start 12/15/16 at 06:00 Miscellaneous Information (*Rx Drug Level Order Reminder*) VANCO RANDOM LEVEL... ONCE ONCE XX ; Start 12/16/16 at 05:00; Stop 12/16/16 at 05:01 LAWRENCE MCDUFFIE MD Dec 15, 2016 15:19
--- NOTE | 2016-12-15 15:32 | CONS ---
Date/Time of Note Date/Time of Note DATE: 12/15/16 TIME: 15:27 Assessment/Plan Assessment/Plan Chief Complaint/Hosp Course Assessment 1. Hypoxemic respiratory distress secondary to extensive bilateral infiltrates appear to be consistent with community-acquired pneumonia however given his background and recent travel history mycobacteria tuberculosis is definitely in the differential. 2. End-stage renal failure hemodialysis 3. Essential hypertension Plan 1. Agree with rule out TB. Serial sputum studies consider QuantiFERON gold. Agree with broad-spectrum antibiotic coverage. If patient rules out for TB and so is not improving will require bronchoscopy. Differential does include cryptogenic organizing pneumonia and/or atypical infection. Consider workup for immunodeficiency. 2. Continue hemodialysis nephrology group 3. Continue hypertensive medications Problems: Consultation Date/Type/Reason Admit Date/Time Date of Consultation: Dec 15, 2016 Type of Consultation: Pulmonary Reason for Consultation Cough shortness of breath hemoptysis Hx of Present Illness 51-year-old gentleman with a history of end-stage renal failure on hemodialysis comes in with one-month history of cough, several day history of increasing sputum production blood-tinged productive cough. No night sweats no nausea no vomiting recent travel history to [facility], no sick contacts respirations no prior history of TB per patient. Continues hemodialysis 3 times a week followed by Dr. Nunez. Chest x-ray here admission shows extensive bilateral infiltrates. As above. Past Medical History End-stage renal failure on hemodialysis Essential hypertension Patient states he is a non-smoker. Quit smoking some time ago. Social History Alcohol Use: none Smoking Status: Former smoker Drug Use: none Exam/Review of Systems Vital Signs Vitals Vital Signs Date Time Temp Pulse Resp B/P Pulse Ox O2 Delivery O2 Flow Rate FiO2 12/15/16 12:45 76 12/15/16 12:45 16 12/15/16 11:49 98.6 163/86 92 12/15/16 07:30 Nasal Cannula 2.0 Exam GENERAL: Moderately ill-appearing young gentleman no accessory muscle use at present. VITAL SIGNS: per chart NECK: Supple. No JVD or lymphadenopathy. CARDIAC EXAM: S1, S2. No added sounds or murmurs. CHEST: Diminished air entry bilaterally few rales ABDOMEN: Soft, nontender. No guarding or rebound. EXTREMITIES: No cyanosis, clubbing or edema. NEUROLOGIC: Generalized weakness. No focal deficits. Results Result Diagram: 12/15/16 0756 12/15/16 0756 Results 24 hrs Laboratory Tests Test 12/14/16 17:10 12/14/16 17:30 12/14/16 19:35 12/14/16 20:48 White Blood Count 6.4 Red Blood Count 2.71 L Hemoglobin 8.3 L Hematocrit 25.6 L Mean Corpuscular Volume 94.5 Mean Corpuscular Hemoglobin 30.6 Mean Corpuscular Hemoglobin Concent 32.4 Red Cell Distribution Width 15.6 H Platelet Count 160 Mean Platelet Volume 10.6 H Neutrophils % 76.3 Lymphocytes % 10.9 L Monocytes % 10.7 Eosinophils % 1.2 Basophils % 0.3 Nucleated Red Blood Cells % 0.0 Neutrophils # 4.9 Lymphocytes # 0.7 L Monocytes # 0.7 Eosinophils # 0.1 Basophils # 0.0 Nucleated Red Blood Cells # 0.0 Prothrombin Time 15.1 H Prothrombin Time Ratio 1.2 INR International Normalized Ratio 1.18 Activated Partial Thromboplast Time 42.2 H Sodium Level 141 Potassium Level 4.6 Chloride Level 93 L Carbon Dioxide Level 34 H Anion Gap 19 H Blood Urea Nitrogen 32 H Creatinine 7.42 H Glucose Level 102 Lactic Acid Level 1.2 0.7 0.9 Calcium Level 9.1 Total Bilirubin 0.2 Direct Bilirubin 0.00 Indirect Bilirubin 0.2 Aspartate Amino Transf (AST/SGOT) 13 L Alanine Aminotransferase (ALT/SGPT) 32 Alkaline Phosphatase 81 Troponin I 0.026 Total Protein 6.9 Albumin 4.1 Globulin 2.80 Albumin/Globulin Ratio 1.46 Urine Color YELLOW Urine Clarity SLIGHTLY CLOUDY A Urine pH 9.0 Urine Specific [place] 1.010 Urine Ketones NEGATIVE Urine Nitrite NEGATIVE Urine Bilirubin NEGATIVE Urine Urobilinogen NEGATIVE Urine Leukocyte Esterase NEGATIVE Urine Microscopic RBC 1 Urine Microscopic WBC 3 Urine Squamous Epithelial Cells FEW Urine Bacteria FEW A Urine Hemoglobin NEGATIVE Urine Glucose 2+ H Urine Total Protein 3+ H Test 12/15/16 07:00 12/15/16 07:56 Blood Gas Specimen Source Blood arterial Arterial Blood Date Drawn 12/15/2016 7:30:06 AM Arterial Blood pH (Temp corrected) 7.344 L Arterial Blood pCO2 (Temp correct) 51.7 H Arterial Blood pO2 (Temp corrected) 66.4 L Arterial Blood HCO3 27.5 H Arterial Blood Base Excess 1.4 Arterial Blood Oxygen Saturation 90.2 L [place] Test ACCEPTAB Arterial Blood Gas Puncture Site Left Radial Arterial Blood Carboxyhemoglobin 0.4 Arterial Blood Methemoglobin 0.4 Blood Gas A-a O2 Differential 86.8 H Oxyhemoglobin Percent 89.5 L Total Hemoglobin 8.6 L Blood Gas Temperature 37.0 Blood Gas Modality NASAL CANNULA FiO2 30.0 Blood Gas Notified Whom JLD Blood Gas Notified Time 12/15/2016 7:58:43 AM White Blood Count 6.3 Red Blood Count 2.64 L Hemoglobin 7.8 L Hematocrit 25.0 L Mean Corpuscular Volume 94.7 Mean Corpuscular Hemoglobin 29.5 Mean Corpuscular Hemoglobin Concent 31.2 L Red Cell Distribution Width 15.7 H Platelet Count 141 Mean Platelet Volume 11.2 H Neutrophils % 77.8 H Lymphocytes % 8.4 L Monocytes % 10.5 Eosinophils % 2.4 Basophils % 0.3 Nucleated Red Blood Cells % 0.0 Neutrophils # 4.9 Lymphocytes # 0.5 L Monocytes # 0.7 Eosinophils # 0.2 Basophils # 0.0 Nucleated Red Blood Cells # 0.0 Sodium Level 141 Potassium Level 5.3 H Chloride Level 94 L Carbon Dioxide Level 31 Anion Gap 21 H Blood Urea Nitrogen 48 #H Creatinine 8.93 H Glucose Level 91 Hemoglobin A1c 4.9 Calcium Level 9.0 Phosphorus Level 5.5 H Magnesium Level 2.2 Total Bilirubin 0.1 L Direct Bilirubin 0.00 Indirect Bilirubin 0.1 Aspartate Amino Transf (AST/SGOT) 14 L Alanine Aminotransferase (ALT/SGPT) 27 Alkaline Phosphatase 87 Total Protein 5.9 #L Albumin 3.4 Globulin 2.50 Albumin/Globulin Ratio 1.36 Triglycerides Level 117 Cholesterol Level 117 LDL Cholesterol, Calculated 61 HDL Cholesterol 33 Cholesterol/HDL Ratio 3.5 Thyroid Stimulating Hormone (TSH) 0.809 Medications Medications Current Medications Cefepime HCl (Maxipime 1gm/50 ml (Pmx)) 50 ml @ 100 mls/hr Q24H IVPB ; Start at 17:00 Amlodipine Besylate (Norvasc) 10 mg DAILY PO Last administered on 12/15/16 08: 59; Admin Dose 10 MG; Start 12/14/16 at 22:00 Carvedilol (Coreg) 12.5 mg BID PO Last administered on 12/15/16 08:59; Admin Dose 12.5 MG; Start 12/14/16 at 22:00 Losartan Potassium (Cozaar) 25 mg DAILY PO Last administered on 12/15/16 08:59 ; Admin Dose 25 MG; Start 12/14/16 at 22:00 Ondansetron HCl (Zofran Inj) 4 mg Q6H PRN IV NAUSEA AND/OR VOMITING; Start at 22:00 Acetaminophen (Tylenol Tab) 650 mg Q6H PRN PO PAIN LEVEL 1-3 OR FEVER; Start at 22:00 Docusate Sodium (Colace) 100 mg Q12H PRN PO CONSTIPATION; Start 12/14/16 at 22: 00 Bisacodyl (Dulcolax) 5 mg DAILY PRN PO CONSTIPATION; Start 12/14/16 at 22:00 Pantoprazole (Protonix Iv) 40 mg DAILY@06 IV Last administered on 12/15/16 06: 33; Admin Dose 40 MG; Start 12/15/16 at 06:00 Miscellaneous Information (*Rx Drug Level Order Reminder*) VANCO RANDOM LEVEL... ONCE ONCE XX ; Start 12/16/16 at 05:00; Stop 12/16/16 at 05:01 UCHE BOUDREAUX MD, [facility] Dec 15, 2016 15:32
[2016-12-15] MEDS: CEFEPIME 1GM/50 ML (PMX) 50 ML IVPB SCH (16:34)
--- NOTE | 2016-12-15 17:57 | CONS ---
DATE OF ADMISSION: 12/14/2016 DATE OF CONSULTATION: 12/15/2016 TYPE OF CONSULTATION: Nephrology. REASON FOR CONSULTATION: Acute hyperkalemia, acute fluid overload, end-stage renal disease on hemodialysis, who presented with shortness of breath. HISTORY OF PRESENT ILLNESS: This is a 51-year-old male who has a past medical history of hypertension, hyperlipidemia, end-stage renal disease on hemodialysis Tuesday, , Tuesday. Patient recently traveled to [facility] and he came back approximately a month before and he started to have this complaint of shortness of breath, generalized weakness, fatigue and cough for the last 1 month, which has been getting worse. Patient was admitted for possible sepsis secondary to underlying pneumonia due to his CT abnormal findings and concern about the recent travel. He is currently put on isolation for TB and Nephrology was consulted because of having acute hyperkalemia, acute fluid overload and need for hemodialysis. At the time of my evaluation, the patient is currently on TB isolation. He is complaining of cough, shortness of breath, weakness, generalized fatigue, lower extremity pain and . Other review of systems has been obtained and is negative except what is mentioned in the History of Present Illness. PAST MEDICAL HISTORY: Notable for hypertension, hyperlipidemia, end-stage renal disease on hemodialysis on Tuesday, and Tuesday. ALLERGIES: NO KNOWN DRUG ALLERGIES. MEDICATION: Have been reviewed. PAST MEDICAL HISTORY: Right upper extremity AV fistula in place. FAMILY HISTORY: No pertinent family history. SOCIAL HISTORY: Patient denies any alcohol use. He is a former smoker. No recreational drug use. PHYSICAL EXAMINATION: VITAL SIGNS: Temperature 99, heart rate 88, respiration 18, blood pressure 173/106, saturation 94 percent on 2 L nasal cannula. GENERAL: Awake, alert, [id number] distress due to the fluid overload and shortness of breath. HEENT: Pupils equal round, reactive to light and accommodation. Extraocular muscles are intact. NECK: Supple. No JVD. No lymphadenopathy. LUNGS: Clear to auscultation. Bibasilar crackles are present, in the mid lung zones and no wheezing. CARDIAC: S1, S2. Tachycardia. No murmur. ABDOMEN: Soft, nontender, nondistended. Bowel sounds are present. EXTREMITIES: No clubbing, cyanosis, or edema. The patient has a right upper extremity AV fistula in place with a good thrill and bruit. NEUROLOGIC: Alert, oriented x3. Cranial nerves 2-12 intact. PSYCHIATRIC: Appropriate affect and mood. LABORATORY/DIAGNOSTIC IMAGIN. CTA chest with contrast negative for any pulmonary embolism. It shows a diffuse patchy and confluent perihilar ground-glass opacity with mild cardiomegaly. 2. WBC 6.3, hemoglobin 7.8, platelet count 141. Sodium 141, potassium 5.3, chloride 94, bicarbonate 31, BUN 48, creatinine 8.9, glucose 91, calcium 9. LFTs are normal. Urinalysis has a few bacteria, 2+ glucose, 3+ protein, no infections. PT/PTT/INR are normal. IMPRESSION: This is a 51-year-old male who is being admitted for sepsis, possibly secondary to underlying pneumonia and he is currently on tuberculosis isolation to rule out active tuberculosis due to the recent history of travel and Nephrology has been consulted for maintenance hemodialysis in a chronic hemodialysis patient who presented with acute overload, acute pulmonary edema and acute hyperkalemia. 1. Acute hyperkalemia. 2. Acute fluid overload. 3. End-stage renal disease on hemodialysis Tuesday, , Tuesday. 4. Sepsis, likely secondary to underlying pneumonia. 5. I am concerned about community-acquired pneumonia. 6. Rule out tuberculosis. 7. History of hypertension. 8. History of hyperlipidemia. 9. History of recent travel to [facility]. PLAN: 1. Thank you, Dr. Olivia Jacques, for this consultation. I will arrange the patient's dialysis to be done today as soon as possible due to the fluid overload and acute hyperkalemia. 2. Continue IV antibiotics with cefepime, vancomycin to cover him for pneumonia. 3. Continue the Cozaar 25 mg p.o. daily. We will monitor his potassium. 4. Continue the other medication of amlodipine and Cozaar. 5. The patient's regular schedule for dialysis is Tuesday, , Tuesday, so we will order another hemodialysis to be done tomorrow morning. 6. Renvela 1600 mg p.o. t.i.d. with meals for hyperphosphatemia. 7. Patient currently seen in telemetry floor and he will be followed up along with his course in the hospital. Once again, thank you, for the consultation. I will continue to follow this patient while being in the hospital. Dictated By: Umesh Perry MD /alyssa/rohini /Document#: [id number]
[2016-12-15] MEDS ORDERED: IODIXANOL LOCM 100 ML BTL ONE (18:02)
[2016-12-15] MEDS ORDERED: SOD CHLORIDE 0.9% 100 ML ONE (18:02)
[2016-12-15] MEDS ORDERED: LABETALOL HCL 20MG INJ ONE (18:02)
[2016-12-16] VITALS (19 sets, daily range): BP systolic 89–154; BP diastolic 57–84; PULSE 60–90; RESP 16–19
[2016-12-16] MEDS: ALBUTEROL 18 GM INHALER INH SCH ×3 (00:22→20:48)
[2016-12-16] MEDS: PANTOPRAZOLE 40 MG INJ IV SCH (05:10)
[2016-12-16 05:44] LABS: BASOPHILS % 0.1 % (0.0-2.0); EOSINOPHILS # 0.2 10^3/ul (0.0-0.5); EOSINOPHILS % 2.5 % (0.0-7.0); HEMATOCRIT 23.2 % (42.0-52.0); HEMOGLOBIN 7.4 g/dl (14.0-18.0); LYMPHOCYTES # 0.8 10^3/ul (0.8-2.9); MEAN CORPUSCULAR HEMOGLOBIN 29.8 pg (29.0-33.0); MEAN CORPUSCULAR HGB CONC 31.9 g/dl (32.0-37.0); MEAN CORPUSCULAR VOLUME 93.5 fl (82.0-101.0); MEAN PLATELET VOLUME 11.5 fl (7.4-10.4); MONOCYTE # 0.6 10^3/ul (0.3-0.9); MONOCYTES % 8.3 % (0.0-11.0); NEUTROPHIL # 5.3 10^3/ul (1.6-7.5); NEUTROPHILS % 77.4 % (39.0-77.0); PLATELET COUNT 152 10^3/UL (140-415); RED BLOOD COUNT 2.48 10^6/ul (4.70-6.10); RED CELL DISTRIBUTION WIDTH 15.4 % (11.5-14.5); WHITE BLOOD COUNT 6.8 10^3/ul (4.8-10.8)
[2016-12-16 06:19] LABS: CALCIUM 8.9 mg/dl (8.4-10.2); CREATININE 9.17 mg/dl (0.61-1.24); POTASSIUM 4.8 mmol/L (3.5-5.1)
[2016-12-16] MEDS: SEVELAMER CARBONATE 0.8 GM PKT PO SCH ×3 (08:13→17:42)
[2016-12-16] MEDS: LOSARTAN 25 MG TAB PO SCH (09:04)
[2016-12-16] MEDS: AMLODIPINE 10 MG TAB PO SCH (09:05)
[2016-12-16] MEDS ORDERED: VANCOMYCIN 1 GM in NS 250 ML IVPB ONE (10:00)
--- NOTE | 2016-12-16 10:30 | CONS ---
Date/Time of Note Date/Time of Note DATE: 12/16/16 TIME: 10:22 Assessment/Plan Assessment/Plan Chief Complaint/Hosp Course 1) interstitial pneumonitis this is more likely viral, atypical or some organizing pneumonitis, less likely would be fungal or TB or auto-immune although pt got treated for atypical pneumonia will change vanco to doxy to cover MRSA and atypicals ok to continue cefepime, but doubt this is hospital acquired pneumonia quant TB gold has been sent continue with induced sputums for specimens will order ESR, LORIN, ANCA, LDH atypical pneumonia serologies have been ordered will order beta d glucan for fungal viral PCR of nares was ordered 2) ESRD on dialysis Problems: Consultation Date/Type/Reason Admit Date/Time 12/14/16 Date of Consultation: Dec 16, 2016 Type of Consultation: ID Hx of Present Illness pt was traveling in [facility] left on 11/08/16 and his family got sick with URI including himself he started with fevers, cough, sometimes yellow phlegm. he got sick on 11/17/16 he [place] the [place] on 11/23/16 and went to [facility] ER on 10/28/16 his CXR was clear at that time and he was given a z-pack which he took his symptoms have progressed and he has had off an on fevers with chills, no NS he got more SOB He denies COHEN, N, V, D, joint pains, rashes, dysuria, dysphagia, sore throat, coryza pt is breathing easier today no hx of HIV and HIV ab was neg on 11/27/16 Past Medical History ESRD, HTN Past Surgical History RUE AV fistula Social History Alcohol Use: none Smoking Status: Former smoker Drug Use: none Exam/Review of Systems Vital Signs Vitals Vital Signs Date Time Temp Pulse Resp B/P Pulse Ox O2 Delivery O2 Flow Rate FiO2 12/16/16 09:13 Nasal Cannula 2.0 12/16/16 08:12 89 12/16/16 07:46 98.4 16 154/83 91 Intake and Output 12/15/16 12/15/16 12/16/16 15:00 23:00 07:00 Intake Total 400 ml 570 ml 220 ml Output Total 2400 ml Balance -2000 ml 570 ml 220 ml Exam Constitutional: alert, oriented Head: normocephalic ENMT: mucosa pink and moist Neck: supple Respiratory: clear to auscultation Cardiovascular: regular rate and rhythm Gastrointestinal: other (slight tenderness to mid-epigastric and RUQ), soft Musculoskeletal: nl extremities to inspection Neurological: other (non focal) Results Result Diagram: 12/16/16 0505 12/16/16 0505 Results 24 hrs Laboratory Tests Test 12/15/16 15:52 12/16/16 05:05 HIV (1&2) Antibody NEGATIVE NEGATIVE White Blood Count 6.8 Red Blood Count 2.48 L Hemoglobin 7.4 L Hematocrit 23.2 L Mean Corpuscular Volume 93.5 Mean Corpuscular Hemoglobin 29.8 Mean Corpuscular Hemoglobin Concent 31.9 L Red Cell Distribution Width 15.4 H Platelet Count 152 Mean Platelet Volume 11.5 H Neutrophils % 77.4 H Lymphocytes % 11.0 L Monocytes % 8.3 Eosinophils % 2.5 Basophils % 0.1 Nucleated Red Blood Cells % 0.0 Neutrophils # 5.3 Lymphocytes # 0.8 Monocytes # 0.6 Eosinophils # 0.2 Basophils # 0.0 Nucleated Red Blood Cells # 0.0 Sodium Level 140 Potassium Level 4.8 Chloride Level 95 L Carbon Dioxide Level 29 Anion Gap 21 H Blood Urea Nitrogen 41 H Creatinine 9.17 H Glucose Level 99 Calcium Level 8.9 Random Vancomycin Level 10.4 Medications Medications Current Medications Cefepime HCl (Maxipime 1gm/50 ml (Pmx)) 50 ml @ 100 mls/hr Q24H IVPB Last administered on 12/15/16 16:34; Admin Dose 100 MLS/HR; Start 12/15/16 at 17:00 Amlodipine Besylate (Norvasc) 10 mg DAILY PO Last administered on 12/16/16 09: 05; Admin Dose 10 MG; Start 12/14/16 at 22:00 Carvedilol (Coreg) 12.5 mg BID PO Last administered on 12/16/16 09:05; Admin Dose 12.5 MG; Start 12/14/16 at 22:00 Losartan Potassium (Cozaar) 25 mg DAILY PO Last administered on 12/16/16 09:04 ; Admin Dose 25 MG; Start 12/14/16 at 22:00 Ondansetron HCl (Zofran Inj) 4 mg Q6H PRN IV NAUSEA AND/OR VOMITING; Start at 22:00 Acetaminophen (Tylenol Tab) 650 mg Q6H PRN PO PAIN LEVEL 1-3 OR FEVER; Start at 22:00 Docusate Sodium (Colace) 100 mg Q12H PRN PO CONSTIPATION; Start 12/14/16 at 22: 00 Bisacodyl (Dulcolax) 5 mg DAILY PRN PO CONSTIPATION; Start 12/14/16 at 22:00 Pantoprazole (Protonix Iv) 40 mg DAILY@06 IV Last administered on 12/16/16t 05: 10; Admin Dose 40 MG; Start 12/15/16 at 06:00 Doxycycline Hyclate (Vibramycin) 100 mg BID PO ; Start 12/16/16 at 10:30 JESSICA MILLER MD Dec 16, 2016 10:30
--- NOTE | 2016-12-16 11:03 | CONS ---
Date/Time of Note Date/Time of Note DATE: 12/16/16 TIME: 11:02 Consult Date/Type/Reason Admit Date/Time Dec 14, 2016 at 21:49 Initial Consult Date 12/16/16 Type of Consultation: Pulmonary Subjective Little better this morning less respiratory distress Objective Vital Signs Date Time Temp Pulse Resp B/P Pulse Ox O2 Delivery O2 Flow Rate FiO2 12/16/16 09:13 Nasal Cannula 2.0 12/16/16 08:12 89 12/16/16 07:46 98.4 16 154/83 91 Intake and Output 12/15/16 12/15/16 12/16/16 15:00 23:00 07:00 Intake Total 400 ml 570 ml 220 ml Output Total 2400 ml Balance -2000 ml 570 ml 220 ml Exam GENERAL: Well-nourished well-developed gentleman comfortable at rest VITAL SIGNS: per chart NECK: Supple. No JVD or lymphadenopathy. CARDIAC EXAM: S1, S2. No added sounds or murmurs. CHEST: Diminished air entry bilaterally few rales ABDOMEN: Soft, nontender. No guarding or rebound. EXTREMITIES: No cyanosis, clubbing or edema. NEUROLOGIC: Generalized weakness. No focal deficits. Results/Medications Result Diagram: 12/16/16 0505 12/16/16 0505 Results 24 hrs Laboratory Tests Test 12/15/16 15:52 12/16/16 05:05 HIV (1&2) Antibody NEGATIVE NEGATIVE White Blood Count 6.8 Red Blood Count 2.48 L Hemoglobin 7.4 L Hematocrit 23.2 L Mean Corpuscular Volume 93.5 Mean Corpuscular Hemoglobin 29.8 Mean Corpuscular Hemoglobin Concent 31.9 L Red Cell Distribution Width 15.4 H Platelet Count 152 Mean Platelet Volume 11.5 H Neutrophils % 77.4 H Lymphocytes % 11.0 L Monocytes % 8.3 Eosinophils % 2.5 Basophils % 0.1 Nucleated Red Blood Cells % 0.0 Neutrophils # 5.3 Lymphocytes # 0.8 Monocytes # 0.6 Eosinophils # 0.2 Basophils # 0.0 Nucleated Red Blood Cells # 0.0 Sodium Level 140 Potassium Level 4.8 Chloride Level 95 L Carbon Dioxide Level 29 Anion Gap 21 H Blood Urea Nitrogen 41 H Creatinine 9.17 H Glucose Level 99 Calcium Level 8.9 Random Vancomycin Level 10.4 Medications Current Medications Cefepime HCl (Maxipime 1gm/50 ml (Pmx)) 50 ml @ 100 mls/hr Q24H IVPB Last administered on 12/15/16 16:34; Admin Dose 100 MLS/HR; Start 12/15/16 at 17:00 Amlodipine Besylate (Norvasc) 10 mg DAILY PO Last administered on 12/16/16 09: 05; Admin Dose 10 MG; Start 12/14/16 at 22:00 Carvedilol (Coreg) 12.5 mg BID PO Last administered on 12/16/16 09:05; Admin Dose 12.5 MG; Start 12/14/16 at 22:00 Losartan Potassium (Cozaar) 25 mg DAILY PO Last administered on 12/16/16 09:04 ; Admin Dose 25 MG; Start 12/14/16 at 22:00 Ondansetron HCl (Zofran Inj) 4 mg Q6H PRN IV NAUSEA AND/OR VOMITING; Start at 22:00 Acetaminophen (Tylenol Tab) 650 mg Q6H PRN PO PAIN LEVEL 1-3 OR FEVER; Start at 22:00 Docusate Sodium (Colace) 100 mg Q12H PRN PO CONSTIPATION; Start 12/14/16 at 22: 00 Bisacodyl (Dulcolax) 5 mg DAILY PRN PO CONSTIPATION; Start 12/14/16 at 22:00 Pantoprazole (Protonix Iv) 40 mg DAILY@06 IV Last administered on 12/16/16 05: 10; Admin Dose 40 MG; Start 12/15/16 at 06:00 Doxycycline Hyclate (Vibramycin) 100 mg BID PO ; Start 12/16/16 at 10:30 Assessment/Plan Chief Complaint/Hosp Course Assessment 1. Hypoxemic respiratory distress secondary to extensive bilateral infiltrates appear to be consistent with community-acquired pneumonia however given his background and recent travel history mycobacteria tuberculosis is of concern. 2. End-stage renal failure hemodialysis 3. Essential hypertension Plan 1. Agree with rule out TB. Continue ID recommendations, appreciated 2. Continue hemodialysis nephrology group 3. Continue hypertensive medications Problems: UCHE BOUDREAUX MD, [facility] Dec 16, 2016 11:03
[2016-12-16] MEDS: DOXYCYCLINE 100 MG TAB PO SCH ×2 (11:10→20:48)
[2016-12-16] MEDS: CEFEPIME 1GM/50 ML (PMX) 50 ML IVPB SCH (17:32)
--- NOTE | 2016-12-16 17:32 | PN ---
Date/Time of Note Date/Time of Note DATE: 12/16/16 TIME: 17:30 Assessment/Plan VTE Prophylaxis VTE Prophylaxis Intervention: heparin Lines/Catheters IV [facility] Saline Lock Urinary Cath still in place: No Assessment/Plan Chief Complaint/Hosp Course 51 yo male with ESRD on HD who presents with acute hypoxic respiratory failure Acute hypoxic respiratory failure: - Improvement clinically suggests bacterial pneumonia - Infiltrates and hypoxia unlikely related to volume overload, appears euvolemic - Abx per ID: doxy and zosyn - AFB r/o - Respiratory isolation - Bronch if needed ESRD: - HD per renal Hypertension: - Continue home meds Hyperphostphatemia: - COntinue phos binders Metabolic acidosis: - Continue alkali Discharge when workup complete and no longer hypoxic Problems: Subjective 24 Hr Interval Summary Free Text/Dictation Sympmatically again improved today Oxygenation also improving to 90% on RA continued bothresome dry cough Exam/Review of Systems Vital Signs Vitals Vital Signs Date Time Temp Pulse Resp B/P Pulse Ox O2 Delivery O2 Flow Rate FiO2 12/16/16 16:12 85 12/16/16 15:50 98.2 18 133/78 91 12/16/16 13:05 Room Air 12/16/16 09:13 2.0 Intake and Output 12/15/16 12/15/16 12/16/16 15:00 23:00 07:00 Intake Total 400 ml 570 ml 220 ml Output Total 2400 ml Balance -2000 ml 570 ml 220 ml Exam Nontoxic Well appearing Clear lungs AV fistula Euvolemic Results Result Diagram: 12/16/16 0505 12/16/16 0505 Results 24 hrs Laboratory Tests Test 12/16/16 05:05 White Blood Count 6.8 Red Blood Count 2.48 L Hemoglobin 7.4 L Hematocrit 23.2 L Mean Corpuscular Volume 93.5 Mean Corpuscular Hemoglobin 29.8 Mean Corpuscular Hemoglobin Concent 31.9 L Red Cell Distribution Width 15.4 H Platelet Count 152 Mean Platelet Volume 11.5 H Neutrophils % 77.4 H Lymphocytes % 11.0 L Monocytes % 8.3 Eosinophils % 2.5 Basophils % 0.1 Nucleated Red Blood Cells % 0.0 Neutrophils # 5.3 Lymphocytes # 0.8 Monocytes # 0.6 Eosinophils # 0.2 Basophils # 0.0 Nucleated Red Blood Cells # 0.0 Sodium Level 140 Potassium Level 4.8 Chloride Level 95 L Carbon Dioxide Level 29 Anion Gap 21 H Blood Urea Nitrogen 41 H Creatinine 9.17 H Glucose Level 99 Calcium Level 8.9 Random Vancomycin Level 10.4 HIV (1&2) Antibody NEGATIVE Medications Medications Current Medications Cefepime HCl (Maxipime 1gm/50 ml (Pmx)) 50 ml @ 100 mls/hr Q24H IVPB Last administered on 12/15/16 16:34; Admin Dose 100 MLS/HR; Start 12/15/16 at 17:00 Amlodipine Besylate (Norvasc) 10 mg DAILY PO Last administered on 12/16/16 09: 05; Admin Dose 10 MG; Start 12/14/16 at 22:00 Carvedilol (Coreg) 12.5 mg BID PO Last administered on 12/16/16 09:05; Admin Dose 12.5 MG; Start 12/14/16 at 22:00 Losartan Potassium (Cozaar) 25 mg DAILY PO Last administered on 12/16/16 09:04 ; Admin Dose 25 MG; Start 12/14/16 at 22:00 Ondansetron HCl (Zofran Inj) 4 mg Q6H PRN IV NAUSEA AND/OR VOMITING; Start at 22:00 Acetaminophen (Tylenol Tab) 650 mg Q6H PRN PO PAIN LEVEL 1-3 OR FEVER; Start at 22:00 Docusate Sodium (Colace) 100 mg Q12H PRN PO CONSTIPATION; Start 12/14/16 at 22: 00 Bisacodyl (Dulcolax) 5 mg DAILY PRN PO CONSTIPATION; Start 12/14/16 at 22:00 Pantoprazole (Protonix Iv) 40 mg DAILY@06 IV Last administered on 12/16/16 05: 10; Admin Dose 40 MG; Start 12/15/16 at 06:00 Doxycycline Hyclate (Vibramycin) 100 mg BID PO Last administered on 12/16/16 11:10; Admin Dose 100 MG; Start 12/16/16 at 10:30 LAWRENCE MCDUFFIE MD Dec 16, 2016 17:32
--- NOTE | 2016-12-16 18:30 | CONS ---
Date/Time of Note Date/Time of Note DATE: 12/16/16 TIME: 18:24 Assessment/Plan Assessment/Plan Chief Complaint/Hosp Course 1. End-stage renal disease on maintenance hemodialysis Tuesday. He has hemodialysis ordered for today. This, being , is his routine today for hemodialysis. He is back on his regular scheduled days. 2. Respiratory failure with interstitial pneumonitis on chest x-ray. Probably viral pneumonia as the rest of his family was sick while he was visiting in [facility]. They have recovered he has remained ill. I doubt this is fluid overload as he has been adequately dialyzed. 3. Hypertension 4. Anemia of chronic kidney disease, I will order Epogen for him. He is more anemic than usual. Will check CBC in a.m. Problems: Consultation Date/Type/Reason Admit Date/Time Dec 14, 2016 at 21:49 Initial Consult Date 12/16/16 Type of Consultation: Pulmonary 24 HR Interval Summary Free Text/Dictation I am seeing this patient today in the nephrologic follow-up. The patient is well-known to me from the dialysis unit and from taking care of him for the last 10 years or more. He apparently was in [facility] and became ill along with the rest of his family. They all developed a cough and fever. The rest of his family has recovered however he continued to have a cough and shortness of breath and came to the hospital. Constitutional: improved Exam/Review of Systems Vital Signs Vitals Vital Signs Date Time Temp Pulse Resp B/P Pulse Ox O2 Delivery O2 Flow Rate FiO2 12/16/16 16:12 85 12/16/16 15:50 98.2 18 133/78 91 12/16/16 13:05 Room Air 12/16/16 09:13 2.0 Intake and Output 12/15/16 12/15/16 12/16/16 15:00 23:00 07:00 Intake Total 400 ml 570 ml 220 ml Output Total 2400 ml Balance -2000 ml 570 ml 220 ml Exam Constitutional: alert, oriented, well developed Psych: no complaints Respiratory: clear to auscultation, normal air movement Cardiovascular: regular rate and rhythm Musculoskeletal: nl extremities to inspection Results Result Diagram: 12/16/16 0505 12/16/16 0505 Results 24 hrs Laboratory Tests Test 12/16/16 05:05 White Blood Count 6.8 Red Blood Count 2.48 L Hemoglobin 7.4 L Hematocrit 23.2 L Mean Corpuscular Volume 93.5 Mean Corpuscular Hemoglobin 29.8 Mean Corpuscular Hemoglobin Concent 31.9 L Red Cell Distribution Width 15.4 H Platelet Count 152 Mean Platelet Volume 11.5 H Neutrophils % 77.4 H Lymphocytes % 11.0 L Monocytes % 8.3 Eosinophils % 2.5 Basophils % 0.1 Nucleated Red Blood Cells % 0.0 Neutrophils # 5.3 Lymphocytes # 0.8 Monocytes # 0.6 Eosinophils # 0.2 Basophils # 0.0 Nucleated Red Blood Cells # 0.0 Sodium Level 140 Potassium Level 4.8 Chloride Level 95 L Carbon Dioxide Level 29 Anion Gap 21 H Blood Urea Nitrogen 41 H Creatinine 9.17 H Glucose Level 99 Calcium Level 8.9 Random Vancomycin Level 10.4 HIV (1&2) Antibody NEGATIVE Medications Medications Current Medications Cefepime HCl (Maxipime 1gm/50 ml (Pmx)) 50 ml @ 100 mls/hr Q24H IVPB Last administered on 12/16/16 17:32; Admin Dose 100 MLS/HR; Start 12/15/16 at 17:00 Amlodipine Besylate (Norvasc) 10 mg DAILY PO Last administered on 12/16/16 09: 05; Admin Dose 10 MG; Start 12/14/16 at 22:00 Carvedilol (Coreg) 12.5 mg BID PO Last administered on 12/16/16 09:05; Admin Dose 12.5 MG; Start 12/14/16 at 22:00 Losartan Potassium (Cozaar) 25 mg DAILY PO Last administered on 12/16/16 09:04 ; Admin Dose 25 MG; Start 12/14/16 at 22:00 Ondansetron HCl (Zofran Inj) 4 mg Q6H PRN IV NAUSEA AND/OR VOMITING; Start at 22:00 Acetaminophen (Tylenol Tab) 650 mg Q6H PRN PO PAIN LEVEL 1-3 OR FEVER; Start at 22:00 Docusate Sodium (Colace) 100 mg Q12H PRN PO CONSTIPATION; Start 12/14/16 at 22: 00 Bisacodyl (Dulcolax) 5 mg DAILY PRN PO CONSTIPATION; Start 12/14/16 at 22:00 Pantoprazole (Protonix Iv) 40 mg DAILY@06 IV Last administered on 12/16/16 05: 10; Admin Dose 40 MG; Start 12/15/16 at 06:00 Doxycycline Hyclate (Vibramycin) 100 mg BID PO Last administered on 12/16/16 11:10; Admin Dose 100 MG; Start 12/16/16 at 10:30 Epoetin Duncan (Epogen (Esrd)) 10,000 units TuThSa@17 SC ; Start 12/16/16 at 21:00 TEVIN FIORE MD Dec 16, 2016 18:30
[2016-12-16] MEDS: EPOETIN 10000 UNITS/1 ML INJ (ESRD) SC SCH (20:51)
[2016-12-16] MEDS ORDERED: EPOETIN 10000 UNITS/1 ML INJ (ESRD) SC SCH (21:00)
[2016-12-17] VITALS (10 sets, daily range): BP systolic 121–155; BP diastolic 66–83; PULSE 82–87; RESP 16–19
[2016-12-17] MEDS: ALBUTEROL 18 GM INHALER INH SCH ×6 (00:59→20:45)
[2016-12-17] MEDS: PANTOPRAZOLE 40 MG INJ IV SCH (05:45)
[2016-12-17 06:43] LABS: BASOPHILS % 0.2 % (0.0-2.0); EOSINOPHILS # 0.2 10^3/ul (0.0-0.5); HEMATOCRIT 24.9 % (42.0-52.0); HEMOGLOBIN 7.7 g/dl (14.0-18.0); LYMPHOCYTES # 0.7 10^3/ul (0.8-2.9); LYMPHOCYTES % 11.4 % (15.0-51.0); MEAN CORPUSCULAR HEMOGLOBIN 29.2 pg (29.0-33.0); MEAN CORPUSCULAR HGB CONC 30.9 g/dl (32.0-37.0); MEAN CORPUSCULAR VOLUME 94.3 fl (82.0-101.0); MEAN PLATELET VOLUME 11.3 fl (7.4-10.4); MONOCYTE # 0.5 10^3/ul (0.3-0.9); NEUTROPHIL # 4.5 10^3/ul (1.6-7.5); NEUTROPHILS % 74.4 % (39.0-77.0); NUCLEATED RED BLOOD CELLS% 0.3 /100WBC (0.0-0.0); PLATELET COUNT 184 10^3/UL (140-415); RED BLOOD COUNT 2.64 10^6/ul (4.70-6.10); RED CELL DISTRIBUTION WIDTH 15.7 % (11.5-14.5)
[2016-12-17 07:29] LABS: ALBUMIN 3.8 g/dl (3.3-4.9); ALBUMIN/GLOBULIN RATIO 1.31; CREATININE 8.62 mg/dl (0.61-1.24); POTASSIUM 4.4 mmol/L (3.5-5.1); TOTAL PROTEIN 6.7 g/dl (6.1-8.1)
[2016-12-17] MEDS: DOXYCYCLINE 100 MG TAB PO SCH ×2 (08:24→20:47)
[2016-12-17] MEDS: AMLODIPINE 10 MG TAB PO SCH (08:26)
[2016-12-17] MEDS: SEVELAMER CARBONATE 0.8 GM PKT PO SCH ×3 (08:27→18:00)
[2016-12-17] MEDS: LOSARTAN 25 MG TAB PO SCH (08:27)
--- NOTE | 2016-12-17 11:33 | CONS ---
Date/Time of Note Date/Time of Note DATE: 12/17/16 TIME: 11:30 Assessment/Plan Assessment/Plan Chief Complaint/Hosp Course 1) interstitial pneumonitis this is more likely viral, atypical or some organizing pneumonitis, less likely would be fungal or TB or auto-immune although pt got treated for atypical pneumonia will change vanco to doxy to cover MRSA and atypicals ok to continue cefepime, but doubt this is hospital acquired pneumonia quant TB gold has been sent continue with induced sputums for specimens will order ESR, LORIN, ANCA, LDH atypical pneumonia serologies have been ordered will order beta d glucan for fungal viral PCR of nares was ordered 12/17 - ESR is very high, will await LORIN and ANCA results sputum cx was neg viral pcr and AFB smear are pending will change cefepime to ceftriaxone, continue with doxycycline 2) ESRD on dialysis Problems: Consultation Date/Type/Reason Admit Date/Time Dec 14, 2016 at 21:49 Initial Consult Date 12/16/16 Type of Consultation: ID [id number] HR Interval Summary Free Text/Dictation pt had some visual hallucinations after getting cefepime yesterday afternoon, not currently no N, V, D breathing is "more better" Exam/Review of Systems Vital Signs Vitals Vital Signs Date Time Temp Pulse Resp B/P Pulse Ox O2 Delivery O2 Flow Rate FiO2 12/17/16 11:17 97.6 82 16 132/78 94 12/17/16 10:14 Nasal Cannula 2.0 Intake and Output 12/16/16 12/16/16 12/17/16 14:59 22:59 06:59 Intake Total 500 ml 720 ml 120 ml Output Total 3000 ml Balance -2500 ml 720 ml 120 ml Exam Constitutional: alert, oriented Head: normocephalic ENMT: mucosa pink and moist Respiratory: clear to auscultation Cardiovascular: regular rate and rhythm Gastrointestinal: non-tender, soft Results Result Diagram: 12/17/16 0554 12/17/16 0553 Results 24 hrs Laboratory Tests Test 12/17/16 05:53 12/17/16 05:54 Erythrocyte Sedimentation Rate 93 H Sodium Level 143 Potassium Level 4.4 Chloride Level 97 Carbon Dioxide Level 28 Anion Gap 22 H Blood Urea Nitrogen 38 H Creatinine 8.62 H Glucose Level 102 Calcium Level 9.0 Total Bilirubin 0.0 L Direct Bilirubin 0.00 Indirect Bilirubin 0.0 Aspartate Amino Transf (AST/SGOT) 14 L Alanine Aminotransferase (ALT/SGPT) 28 Alkaline Phosphatase 85 Total Protein 6.7 Albumin 3.8 Globulin 2.90 Albumin/Globulin Ratio 1.31 White Blood Count 6.0 Red Blood Count 2.64 L Hemoglobin 7.7 L Hematocrit 24.9 L Mean Corpuscular Volume 94.3 Mean Corpuscular Hemoglobin 29.2 Mean Corpuscular Hemoglobin Concent 30.9 L Red Cell Distribution Width 15.7 H Platelet Count 184 # Mean Platelet Volume 11.3 H Neutrophils % 74.4 Lymphocytes % 11.4 L Monocytes % 9.0 Eosinophils % 4.0 Basophils % 0.2 Nucleated Red Blood Cells % 0.3 H Neutrophils # 4.5 Lymphocytes # 0.7 L Monocytes # 0.5 Eosinophils # 0.2 Basophils # 0.0 Nucleated Red Blood Cells # 0.0 Lactate Dehydrogenase 400 Medications Medications Current Medications Cefepime HCl (Maxipime 1gm/50 ml (Pmx)) 50 ml @ 100 mls/hr Q24H IVPB Last administered on 12/16/16 17:32; Admin Dose 100 MLS/HR; Start 12/15/16 at 17:00 Amlodipine Besylate (Norvasc) 10 mg DAILY PO Last administered on 12/17/16 08: 26; Admin Dose 10 MG; Start 12/14/16 at 22:00 Carvedilol (Coreg) 12.5 mg BID PO Last administered on 12/17/16 08:26; Admin Dose 12.5 MG; Start 12/14/16 at 22:00 Losartan Potassium (Cozaar) 25 mg DAILY PO Last administered on 12/17/16 08:27 ; Admin Dose 25 MG; Start 12/14/16 at 22:00 Ondansetron HCl (Zofran Inj) 4 mg Q6H PRN IV NAUSEA AND/OR VOMITING; Start at 22:00 Acetaminophen (Tylenol Tab) 650 mg Q6H PRN PO PAIN LEVEL 1-3 OR FEVER; Start at 22:00 Docusate Sodium (Colace) 100 mg Q12H PRN PO CONSTIPATION; Start 12/14/16 at 22: 00 Bisacodyl (Dulcolax) 5 mg DAILY PRN PO CONSTIPATION; Start 12/14/16 at 22:00 Pantoprazole (Protonix Iv) 40 mg DAILY@06 IV Last administered on 12/17/16 05: 45; Admin Dose 40 MG; Start 12/15/16 at 06:00 Doxycycline Hyclate (Vibramycin) 100 mg BID PO Last administered on 12/17/16 08:24; Admin Dose 100 MG; Start 12/16/16 at 10:30 Epoetin Duncan (Epogen (Esrd)) 10,000 units TuThSa@17 SC Last administered on 20:51; Admin Dose 10,000 UNITS; Start 12/16/16 at 20:00; Stop 12/23/16 at 19:59 JESSICA MILLER MD Dec 17, 2016 11:32
--- NOTE | 2016-12-17 12:32 | CONS ---
Date/Time of Note Date/Time of Note DATE: 12/17/16 TIME: 12:29 Assessment/Plan Assessment/Plan Chief Complaint/Hosp Course 1. End-stage renal disease on maintenance hemodialysis Tuesday. I have ordered hemodialysis for tomorrow. He is back on his regular scheduled days. 2. Respiratory failure with interstitial pneumonitis on chest x-ray. Probably viral pneumonia as the rest of his family was sick while he was visiting in [facility]. They have recovered he has remained ill. I doubt this is fluid overload as he has been adequately dialyzed. He is doing better and potentially could go home if he is able to be off oxygen. Infectious disease recommended he could go home on doxycycline 100 mg twice a day and Vantin twice a day both for 1 week. 3. Hypertension 4. Anemia of chronic kidney disease, I will order Epogen for him. He is more anemic than usual. Will check CBC in a.m. Problems: Consultation Date/Type/Reason Admit Date/Time Dec 14, 2016 at 21:49 Initial Consult Date 12/16/16 Type of Consultation: renal 24 HR Interval Summary Free Text/Dictation He is feeling better today. He still has a cough and some shortness of breath. Constitutional: improved, no complaints Exam/Review of Systems Vital Signs Vitals Vital Signs Date Time Temp Pulse Resp B/P Pulse Ox O2 Delivery O2 Flow Rate FiO2 12/17/16 11:17 97.6 82 16 132/78 94 12/17/16 10:14 Nasal Cannula 2.0 Intake and Output 12/16/16 12/16/16 12/17/16 15:00 23:00 07:00 Intake Total 500 ml 720 ml 120 ml Output Total 3000 ml Balance -2500 ml 720 ml 120 ml Exam Constitutional: alert, oriented, well developed Neck: non-tender, supple Respiratory: clear to auscultation, normal air movement Cardiovascular: murmurs/extra sounds, regular rate and rhythm Gastrointestinal: non-tender, soft Musculoskeletal: nl extremities to inspection Results Result Diagram: 12/17/16 0554 12/17/16 0553 Results 24 hrs Laboratory Tests Test 12/17/16 05:53 12/17/16 05:54 Erythrocyte Sedimentation Rate 93 H Sodium Level 143 Potassium Level 4.4 Chloride Level 97 Carbon Dioxide Level 28 Anion Gap 22 H Blood Urea Nitrogen 38 H Creatinine 8.62 H Glucose Level 102 Calcium Level 9.0 Total Bilirubin 0.0 L Direct Bilirubin 0.00 Indirect Bilirubin 0.0 Aspartate Amino Transf (AST/SGOT) 14 L Alanine Aminotransferase (ALT/SGPT) 28 Alkaline Phosphatase 85 Total Protein 6.7 Albumin 3.8 Globulin 2.90 Albumin/Globulin Ratio 1.31 White Blood Count 6.0 Red Blood Count 2.64 L Hemoglobin 7.7 L Hematocrit 24.9 L Mean Corpuscular Volume 94.3 Mean Corpuscular Hemoglobin 29.2 Mean Corpuscular Hemoglobin Concent 30.9 L Red Cell Distribution Width 15.7 H Platelet Count 184 # Mean Platelet Volume 11.3 H Neutrophils % 74.4 Lymphocytes % 11.4 L Monocytes % 9.0 Eosinophils % 4.0 Basophils % 0.2 Nucleated Red Blood Cells % 0.3 H Neutrophils # 4.5 Lymphocytes # 0.7 L Monocytes # 0.5 Eosinophils # 0.2 Basophils # 0.0 Nucleated Red Blood Cells # 0.0 Lactate Dehydrogenase 400 Medications Medications Current Medications Amlodipine Besylate (Norvasc) 10 mg DAILY PO Last administered on 12/17/16 08: 26; Admin Dose 10 MG; Start 12/14/16 at 22:00 Carvedilol (Coreg) 12.5 mg BID PO Last administered on 12/17/16 08:26; Admin Dose 12.5 MG; Start 12/14/16 at 22:00 Losartan Potassium (Cozaar) 25 mg DAILY PO Last administered on 12/17/16 08:27 ; Admin Dose 25 MG; Start 12/14/16 at 22:00 Ondansetron HCl (Zofran Inj) 4 mg Q6H PRN IV NAUSEA AND/OR VOMITING; Start at 22:00 Acetaminophen (Tylenol Tab) 650 mg Q6H PRN PO PAIN LEVEL 1-3 OR FEVER; Start at 22:00 Docusate Sodium (Colace) 100 mg Q12H PRN PO CONSTIPATION; Start 12/14/16 at 22: 00 Bisacodyl (Dulcolax) 5 mg DAILY PRN PO CONSTIPATION; Start 12/14/16 at 22:00 Pantoprazole (Protonix Iv) 40 mg DAILY@06 IV Last administered on 12/17/16 05: 45; Admin Dose 40 MG; Start 12/15/16 at 06:00 Doxycycline Hyclate (Vibramycin) 100 mg BID PO Last administered on 12/17/16 08:24; Admin Dose 100 MG; Start 12/16/16 at 10:30 Epoetin Duncan 54790 units 10,000 units TuThSa@17 SC Last administered on 20:51; Admin Dose 10,000 UNITS; Start 12/16/16 at 20:00; Stop 12/23/16 at 19 :59 Ceftriaxone Sodium (Rocephin) 50 ml @ 100 mls/hr Q24H IVPB ; Start 12/17/16 at 12:00 TEVIN FIORE MD Dec 17, 2016 12:32
[2016-12-17] MEDS: CEFTRIAXONE 1 GM/50 ML (PMX) 50 ML IVPB SCH (12:34)
--- NOTE | 2016-12-17 12:54 | RADRPT ---
PROCEDURE: XR Chest. CLINICAL INDICATION: Shortness of breath. TECHNIQUE: Single frontal view. COMPARISON: 12/14/2016. FINDINGS: There is bilateral patchy pulmonary air space disease consistent with bilateral multifocal pneumonia or pulmonary edema, improved. The heart is enlarged. There is calcification in the aorta consistent with atherosclerosis. There is no pleural effusion. There is no pneumothorax. IMPRESSION: 1. Improved appearance of the lungs. 2. Cardiomegaly and atherosclerosis. RPTAT: QQ .Caleb Saldana MD, MD Date Time Electronically viewed and signed by .Caleb Saldana MD, MD on 12/17/2016 12:53 .R/
--- NOTE | 2016-12-17 15:31 | CONS ---
Date/Time of Note Date/Time of Note DATE: 12/17/16 TIME: 15:29 Consult Date/Type/Reason Admit Date/Time Dec 14, 2016 at 21:49 Initial Consult Date 12/16/16 Type of Consultation: Pulmonary Subjective Patient improving. Radiographic improvement noted. Objective Vital Signs Date Time Temp Pulse Resp B/P Pulse Ox O2 Delivery O2 Flow Rate FiO2 12/17/16 15:26 98.1 81 16 121/66 93 12/17/16 10:14 Nasal Cannula 2.0 Intake and Output 12/16/16 12/16/16 12/17/16 15:00 23:00 07:00 Intake Total 500 ml 720 ml 120 ml Output Total 3000 ml Balance -2500 ml 720 ml 120 ml Exam GENERAL: Well-nourished well-developed gentleman VITAL SIGNS: per chart NECK: Supple. No JVD or lymphadenopathy. CARDIAC EXAM: S1, S2. No added sounds or murmurs. CHEST: clear bilaterally, No added sounds, rales or wheezes ABDOMEN: Soft, nontender. No guarding or rebound. EXTREMITIES: No cyanosis, clubbing or edema. NEUROLOGIC: Generalized weakness. No focal deficits. Results/Medications Result Diagram: 12/17/16 0554 12/17/16 0553 Results 24 hrs Laboratory Tests Test 12/17/16 05:53 12/17/16 05:54 Erythrocyte Sedimentation Rate 93 H Sodium Level 143 Potassium Level 4.4 Chloride Level 97 Carbon Dioxide Level 28 Anion Gap 22 H Blood Urea Nitrogen 38 H Creatinine 8.62 H Glucose Level 102 Calcium Level 9.0 Total Bilirubin 0.0 L Direct Bilirubin 0.00 Indirect Bilirubin 0.0 Aspartate Amino Transf (AST/SGOT) 14 L Alanine Aminotransferase (ALT/SGPT) 28 Alkaline Phosphatase 85 Total Protein 6.7 Albumin 3.8 Globulin 2.90 Albumin/Globulin Ratio 1.31 White Blood Count 6.0 Red Blood Count 2.64 L Hemoglobin 7.7 L Hematocrit 24.9 L Mean Corpuscular Volume 94.3 Mean Corpuscular Hemoglobin 29.2 Mean Corpuscular Hemoglobin Concent 30.9 L Red Cell Distribution Width 15.7 H Platelet Count 184 # Mean Platelet Volume 11.3 H Neutrophils % 74.4 Lymphocytes % 11.4 L Monocytes % 9.0 Eosinophils % 4.0 Basophils % 0.2 Nucleated Red Blood Cells % 0.3 H Neutrophils # 4.5 Lymphocytes # 0.7 L Monocytes # 0.5 Eosinophils # 0.2 Basophils # 0.0 Nucleated Red Blood Cells # 0.0 Lactate Dehydrogenase 400 Medications Current Medications Amlodipine Besylate (Norvasc) 10 mg DAILY PO Last administered on 12/17/16 08: 26; Admin Dose 10 MG; Start 12/14/16 at 22:00 Carvedilol (Coreg) 12.5 mg BID PO Last administered on 12/17/16 08:26; Admin Dose 12.5 MG; Start 12/14/16 at 22:00 Losartan Potassium (Cozaar) 25 mg DAILY PO Last administered on 12/17/16 08:27 ; Admin Dose 25 MG; Start 12/14/16 at 22:00 Ondansetron HCl (Zofran Inj) 4 mg Q6H PRN IV NAUSEA AND/OR VOMITING; Start at 22:00 Acetaminophen (Tylenol Tab) 650 mg Q6H PRN PO PAIN LEVEL 1-3 OR FEVER; Start at 22:00 Docusate Sodium (Colace) 100 mg Q12H PRN PO CONSTIPATION; Start 12/14/16 at 22: 00 Bisacodyl (Dulcolax) 5 mg DAILY PRN PO CONSTIPATION; Start 12/14/16 at 22:00 Pantoprazole (Protonix Iv) 40 mg DAILY@06 IV Last administered on 12/17/16 05: 45; Admin Dose 40 MG; Start 12/15/16 at 06:00 Doxycycline Hyclate (Vibramycin) 100 mg BID PO Last administered on 12/17/16 08:24; Admin Dose 100 MG; Start 12/16/16 at 10:30 Epoetin Duncan 05557 units 10,000 units TuThSa@17 SC Last administered on 20:51; Admin Dose 10,000 UNITS; Start 12/16/16 at 20:00; Stop 12/23/16 at 19 :59 Ceftriaxone Sodium (Rocephin) 50 ml @ 100 mls/hr Q24H IVPB Last administered on 12/17/16 12:34; Admin Dose 100 MLS/HR; Start 12/17/16 at 12:00 Assessment/Plan Chief Complaint/Hosp Course Assessment 1. Hypoxemic respiratory distress secondary to extensive bilateral infiltrates appear to be consistent with community-acquired pneumonia clinically and radiographically improved.. 2. End-stage renal failure hemodialysis 3. Essential hypertension 4. Anemia possibly secondary to chronic kidney disease will defer to primary team Plan 1. Continues antibiotics per infectious disease 2. Continue hemodialysis nephrology group 3. Continue hypertensive medications 4. Agree with with addition of Epogen Problems: UCHE BOUDREAUX MD, [facility] Dec 17, 2016 15:31
--- NOTE | 2016-12-17 16:17 | PN ---
Date/Time of Note Date/Time of Note DATE: 12/17/16 TIME: 16:16 Assessment/Plan VTE Prophylaxis VTE Prophylaxis Intervention: heparin Lines/Catheters IV [facility]from [facility] Urinary Cath still in place: No Assessment/Plan Chief Complaint/Hosp Course 51 yo male with ESRD on HD who presents with acute hypoxic respiratory failure Acute hypoxic respiratory failure: - Improvement clinically suggests bacterial pneumonia was present - Infiltrates and hypoxia unlikely related to volume overload, appears euvolemic - Abx per ID: doxy and ceftriaxone - AFB r/o negative - Can likely go home tomorrow ESRD: - HD per renal Hypertension: - Continue home meds Anemia of CKD: - EPO Hyperphostphatemia: - COntinue phos binders Metabolic acidosis: - Continue alkali Discharge when workup complete and no longer hypoxic Problems: Subjective 24 Hr Interval Summary Free Text/Dictation Feeling improved Oxygenation better now 92% on RA Exam/Review of Systems Vital Signs Vitals Vital Signs Date Time Temp Pulse Resp B/P Pulse Ox O2 Delivery O2 Flow Rate FiO2 12/17/16 15:26 98.1 81 16 121/66 93 12/17/16 10:14 Nasal Cannula 2.0 Intake and Output 12/16/16 12/16/16 12/17/16 15:00 23:00 07:00 Intake Total 500 ml 720 ml 120 ml Output Total 3000 ml Balance -2500 ml 720 ml 120 ml Results Result Diagram: 12/17/16 0554 12/17/16 0553 Results 24 hrs Laboratory Tests Test 12/17/16 05:53 12/17/16 05:54 Erythrocyte Sedimentation Rate 93 H Sodium Level 143 Potassium Level 4.4 Chloride Level 97 Carbon Dioxide Level 28 Anion Gap 22 H Blood Urea Nitrogen 38 H Creatinine 8.62 H Glucose Level 102 Calcium Level 9.0 Total Bilirubin 0.0 L Direct Bilirubin 0.00 Indirect Bilirubin 0.0 Aspartate Amino Transf (AST/SGOT) 14 L Alanine Aminotransferase (ALT/SGPT) 28 Alkaline Phosphatase 85 Total Protein 6.7 Albumin 3.8 Globulin 2.90 Albumin/Globulin Ratio 1.31 White Blood Count 6.0 Red Blood Count 2.64 L Hemoglobin 7.7 L Hematocrit 24.9 L Mean Corpuscular Volume 94.3 Mean Corpuscular Hemoglobin 29.2 Mean Corpuscular Hemoglobin Concent 30.9 L Red Cell Distribution Width 15.7 H Platelet Count 184 # Mean Platelet Volume 11.3 H Neutrophils % 74.4 Lymphocytes % 11.4 L Monocytes % 9.0 Eosinophils % 4.0 Basophils % 0.2 Nucleated Red Blood Cells % 0.3 H Neutrophils # 4.5 Lymphocytes # 0.7 L Monocytes # 0.5 Eosinophils # 0.2 Basophils # 0.0 Nucleated Red Blood Cells # 0.0 Lactate Dehydrogenase 400 Medications Medications Current Medications Amlodipine Besylate (Norvasc) 10 mg DAILY PO Last administered on 12/17/16 08: 26; Admin Dose 10 MG; Start 12/14/16 at 22:00 Carvedilol (Coreg) 12.5 mg BID PO Last administered on 12/17/16 08:26; Admin Dose 12.5 MG; Start 12/14/16 at 22:00 Losartan Potassium (Cozaar) 25 mg DAILY PO Last administered on 12/17/16 08:27 ; Admin Dose 25 MG; Start 12/14/16 at 22:00 Ondansetron HCl (Zofran Inj) 4 mg Q6H PRN IV NAUSEA AND/OR VOMITING; Start at 22:00 Acetaminophen (Tylenol Tab) 650 mg Q6H PRN PO PAIN LEVEL 1-3 OR FEVER; Start at 22:00 Docusate Sodium (Colace) 100 mg Q12H PRN PO CONSTIPATION; Start 12/14/16 at 22: 00 Bisacodyl (Dulcolax) 5 mg DAILY PRN PO CONSTIPATION; Start 12/14/16 at 22:00 Pantoprazole (Protonix Iv) 40 mg DAILY@06 IV Last administered on 12/17/16 05: 45; Admin Dose 40 MG; Start 12/15/16 at 06:00 Doxycycline Hyclate (Vibramycin) 100 mg BID PO Last administered on 12/17/16 08:24; Admin Dose 100 MG; Start 12/16/16 at 10:30 Epoetin Duncan 83153 units 10,000 units TuThSa@17 SC Last administered on 20:51; Admin Dose 10,000 UNITS; Start 12/16/16 at 20:00; Stop 12/23/16 at 19 :59 Ceftriaxone Sodium (Rocephin) 50 ml @ 100 mls/hr Q24H IVPB Last administered on 7/28/17at 12:34; Admin Dose 100 MLS/HR; Start 12/17/16 at 12:00 LAWRENCE MCDUFFIE MD Dec 17, 2016 16:17
[2016-12-17 19:39] LABS: TB-NIL <0.00 IU/mL
[2016-12-18] VITALS (16 sets, daily range): BP systolic 124–173; BP diastolic 73–99; PULSE 80–88; RESP 17–20
[2016-12-18] MEDS: ALBUTEROL 18 GM INHALER INH SCH ×5 (00:44→18:04)
[2016-12-18] MEDS: PANTOPRAZOLE 40 MG INJ IV SCH (05:32)
--- NOTE | 2016-12-18 08:45 | CONS ---
Date/Time of Note Date/Time of Note DATE: 12/18/16 TIME: 08:42 Assessment/Plan Assessment/Plan Problems: (1) Anemia in chronic kidney disease Comment: asx.. on EPO now (2) Pneumonia Comment: improved w UF + abx... afeb, and no leukocytosis (3) HTN (hypertension) Comment: controlled (4) End stage renal disease on dialysis Status: Acute Comment: for HD today Consultation Date/Type/Reason Admit Date/Time Dec 14, 2016 at 21:49 Initial Consult Date 12/16/16 Type of Consultation: neph 24 HR Interval Summary Free Text/Dictation feels good.. less SOB Exam/Review of Systems Vital Signs Vitals Vital Signs Date Time Temp Pulse Resp B/P Pulse Ox O2 Delivery O2 Flow Rate FiO2 12/18/16 08:14 85 12/18/16 08:01 Nasal Cannula 2.0 12/18/16 07:55 98.0 17 142/84 98 Intake and Output 12/17/16 12/17/16 12/18/16 14:59 22:59 06:59 Intake Total 50 ml 810 ml 120 ml Balance 50 ml 810 ml 120 ml Exam Constitutional: alert, oriented Neck: supple Respiratory: clear to auscultation Cardiovascular: regular rate and rhythm Extremities: edema (none...fxn AVf RUE) Results Result Diagram: 12/17/16 0554 12/17/16 0553 Medications Medications Current Medications Amlodipine Besylate (Norvasc) 10 mg DAILY PO Last administered on 12/17/16 08: 26; Admin Dose 10 MG; Start 12/14/16 at 22:00 Carvedilol (Coreg) 12.5 mg BID PO Last administered on 12/17/16 20:44; Admin Dose 12.5 MG; Start 12/14/16 at 22:00 Losartan Potassium (Cozaar) 25 mg DAILY PO Last administered on 12/17/16 08:27 ; Admin Dose 25 MG; Start 12/14/16 at 22:00 Ondansetron HCl (Zofran Inj) 4 mg Q6H PRN IV NAUSEA AND/OR VOMITING; Start at 22:00 Acetaminophen (Tylenol Tab) 650 mg Q6H PRN PO PAIN LEVEL 1-3 OR FEVER; Start at 22:00 Docusate Sodium (Colace) 100 mg Q12H PRN PO CONSTIPATION; Start 12/14/16 at 22: 00 Bisacodyl (Dulcolax) 5 mg DAILY PRN PO CONSTIPATION; Start 12/14/16 at 22:00 Pantoprazole (Protonix Iv) 40 mg DAILY@06 IV Last administered on 12/18/16 05: 32; Admin Dose 40 MG; Start 12/15/16 at 06:00 Doxycycline Hyclate (Vibramycin) 100 mg BID PO Last administered on 12/17/16 20:47; Admin Dose 100 MG; Start 12/16/16 at 10:30 Epoetin Duncan 26859 units 10,000 units TuThSa@17 SC Last administered on 20:51; Admin Dose 10,000 UNITS; Start 12/16/16 at 20:00; Stop 12/23/16 at 19 :59 Ceftriaxone Sodium (Rocephin) 50 ml @ 100 mls/hr Q24H IVPB Last administered on 12/17/16 12:34; Admin Dose 100 MLS/HR; Start 12/17/16 at 12:00 ALDEN SPENCE MD Dec 18, 2016 08:44
[2016-12-18] MEDS: SEVELAMER CARBONATE 0.8 GM PKT PO SCH ×3 (09:03→18:05)
--- NOTE | 2016-12-18 10:01 | CONS ---
Date/Time of Note Date/Time of Note DATE: 12/18/16 TIME: 10:00 Assessment/Plan Assessment/Plan Additional Assessment/Plan Chest x-ray was reviewed from today which is showing marked improvement in bilateral infiltrates. Assessment and recommendations; 1. Patient admitted with pneumonia with possibly some element of fluid overload with marked radiological and clinical improvement. 2. History of hypertension. 3. End-stage renal disease, on hemodialysis. 4. Anemia. 5. Possibly underlying sleep apnea. Continue current treatment. Patient will need to have a polysomnogram done on outpatient basis. Consultation Date/Type/Reason Admit Date/Time Dec 14, 2016 at 21:49 Initial Consult Date 12/16/16 Type of Consultation: Pulmonary 24 HR Interval Summary Free Text/Dictation Patient condition is significantly improved. Denies any shortness of breath, coughing, fever or chills. General exam; middle-aged male, awake and alert. Currently in no distress. Exam/Review of Systems Vital Signs Vitals Vital Signs Date Time Temp Pulse Resp B/P Pulse Ox O2 Delivery O2 Flow Rate FiO2 12/18/16 08:14 85 12/18/16 08:01 Nasal Cannula 2.0 12/18/16 07:55 98.0 17 142/84 98 Intake and Output 12/17/16 12/17/16 12/18/16 15:00 23:00 07:00 Intake Total 50 ml 810 ml 120 ml Balance 50 ml 810 ml 120 ml Exam HEENT exam; supple neck, no JVD. No lymphadenopathy. Midline trachea. No thyromegaly. Pharynx is clear. Patient has fair dentition. Pupils are midsize and reactive to light. Chest exam; clear to auscultation. S1-S2 audible, no murmurs. Regular rhythm. Abdomen exam; soft, nontender. No organomegaly. Bowel sounds audible. Extremity exam; no peripheral edema. [employer] exam; no focal deficit. Results Result Diagram: 12/17/16 0554 12/17/16 0553 Results 24 hrs Laboratory Tests Test 12/18/16 08:55 Lab Scanned Report REFER[facility] LAB Medications Medications Current Medications Amlodipine Besylate (Norvasc) 10 mg DAILY PO Last administered on 12/17/16t 08: 26; Admin Dose 10 MG; Start 12/14/16 at 22:00 Carvedilol (Coreg) 12.5 mg BID PO Last administered on 12/17/16 20:44; Admin Dose 12.5 MG; Start 12/14/16 at 22:00 Losartan Potassium (Cozaar) 25 mg DAILY PO Last administered on 12/17/16 08:27 ; Admin Dose 25 MG; Start 12/14/16 at 22:00 Ondansetron HCl (Zofran Inj) 4 mg Q6H PRN IV NAUSEA AND/OR VOMITING; Start at 22:00 Acetaminophen (Tylenol Tab) 650 mg Q6H PRN PO PAIN LEVEL 1-3 OR FEVER; Start at 22:00 Docusate Sodium (Colace) 100 mg Q12H PRN PO CONSTIPATION; Start 12/14/16 at 22: 00 Bisacodyl (Dulcolax) 5 mg DAILY PRN PO CONSTIPATION; Start 12/14/16 at 22:00 Pantoprazole (Protonix Iv) 40 mg DAILY@06 IV Last administered on 12/18/16 05: 32; Admin Dose 40 MG; Start 12/15/16 at 06:00 Doxycycline Hyclate (Vibramycin) 100 mg BID PO Last administered on 12/17/16 20:47; Admin Dose 100 MG; Start 12/16/16 at 10:30 Epoetin Duncan 93413 units 10,000 units TuThSa@17 SC Last administered on 20:51; Admin Dose 10,000 UNITS; Start 12/16/16 at 20:00; Stop 12/23/16 at 19 :59 Ceftriaxone Sodium (Rocephin) 50 ml @ 100 mls/hr Q24H IVPB Last administered on 12/17/16 12:34; Admin Dose 100 MLS/HR; Start 12/17/16 at 12:00 KESHA TREVIÑO Dec 18, 2016 10:01
[2016-12-18] MEDS: DOXYCYCLINE 100 MG TAB PO SCH (12:06)
[2016-12-18] MEDS: CEFTRIAXONE 1 GM/50 ML (PMX) 50 ML IVPB SCH (12:06)
[2016-12-18 12:21] LABS: ANA SCREEN NEGATIVE (NEGATIVE)
[2016-12-18 13:48] LABS: MYELOPEROXIDASE ANTIBODY <1.0 AI; PROTEINASE-3 ANTIBODY <1.0 AI
--- NOTE | 2016-12-18 14:46 | PDOCDIS ---
Discharge Instructions DIAGNOSIS Discharge Diagnosis Pneumonia CONDITION Patient Condition: Good HOME CARE INSTRUCTIONS: Diet Instructions: Reduced SodiumSpecial Diet: renal ACTIVITY: Activity Restrictions: No Restrictions FOLLOW UP/APPOINTMENTS Follow-up Plan Continue dialysis as normally scheduled Follow up with your kidney doctor Seek medical care if you feel shortness of breath, fevers, or other concerning symptoms LAWRENCE MCDUFFIE MD Dec 18, 2016 14:46
[2016-12-18] MEDS ORDERED: AMOX1TAB9 PO (14:51)
[2016-12-18] MEDS ORDERED: DOXY100T2 PO (14:51)
--- NOTE | 2016-12-18 14:54 | DS ---
Date/Time of Note Date/Time of Note DATE: 12/18/16 TIME: 14:52 Discharge Summary Admission/Discharge Info Admit Date/Time Dec 14, 2016 at 21:49 Discharge Date/Time Discharge Diagnosis Pneumonia Patient Condition: Good Hx of Present Illness Chief complaint: Cough 1 month. 51-year-old male history of end-stage renal disease on dialysis who had dialysis today who presents with multiple complaints. He describes shortness of breath and cough for approximately 1 month that is worse over the past 24-48 hours. He is found to be significantly hypoxic at triage. He describes cough over the last several days with subjective fevers. The cough is productive of greenish and bloody sputum. He denies any weight loss, night sweats, denies any exposure to anyone with tuberculosis, no recent incarcerations. He does report that he went to [facility] approximately 1 month ago and that is where his cough started. No pleuritic pain or lower extremity swelling. He was also seen in the ER approximately 2 weeks ago but was subsequently discharged. Allergies: NKDA Medications: See [facility] Hospital Course 51 yo male with ESRD on HD who presents with acute hypoxic respiratory failure The patient was treated with abx and his condition improved. He was no longer hypoxic. CT chest showed multifocal pneumonia. Quantiferon and AFB smears were negative. LORIN/ANCA also negative. He underwent HD sessions as scheduled. He was given PO abx to continue for 4 more days as an outpatient and instructed to return to the hosptial if he feels worsening symptoms Home Meds Active Scripts Amoxicillin/Potassium Clav (Amox-Clav 500-125 mg Tablet) 500-125 mg Tab, 1 TAB PO DAILY for 4 Days, #4 TAB Prov:LAWRENCE MCDUFFIE MD 12/18/16 Doxycycline* (Vibramycin*) 100 Mg Tab, 100 MG PO BID for 4 Days, #8 TAB Prov:LAWRENCE MCDUFFIE MD 12/18/16 Albuterol Sulfate* (Proair HFA*) 8.5 Gm Hfa.aer.ad, 2 PUFF INH Q4, #1 INHALER Prov:ZACKARY QUICK DO 11/27/16 Reported Medications Omeprazole* (Omeprazole*) 20 Mg Capsule., 20 MG PO DAILY, #30 CAP 11/27/16 Carvedilol* (Carvedilol*) 12.5 Mg Tablet, 12.5 MG PO BID, #60 TAB 11/27/16 Losartan Potassium* (Losartan Potassium*) 25 Mg Tablet, 25 MG PO DAILY, TAB 11/27/16 Amlodipine Besylate* (Amlodipine Besylate*) 10 Mg Tablet, 10 MG PO DAILY, #30 TAB 11/27/16 Sevelamer Carbonate* (Renvela*) 800 Mg Tablet, 1600 GM PO WITH MEALS, TAB 11/27/16 Discontinued Scripts Azithromycin* (Zithromax*) 250 Mg Tablet, 250 MG PO .KENNY DIRECTED, #6 TAB TAKE 500 MG (2 TABS) THE FIRST DAY THEN 250 MG (1 TAB) DAYS 2-5 Prov:ZACKARY QUICK DO 11/27/16 Prednisone* (Prednisone*) 20 Mg Tab, 60 MG PO DAILY for 5 Days, TAB Prov:ZACKARY QUICK DO 11/27/16 Primary Care Provider Care Physician No Primary Time spent on discharge: > 30 minutes Pending Labs Laboratory Tests Test 12/18/16 08:55 Lab Scanned Report REFERENCE [id number] LAWRENCE MCDUFFIE MD Dec 18, 2016 14:54
[2016-12-18] MEDS: AMLODIPINE 10 MG TAB PO SCH (16:51)
[2016-12-18] MEDS: EPOETIN 10000 UNITS/1 ML INJ (ESRD) SC SCH (18:04)
[2016-12-18] MEDS: LOSARTAN 25 MG TAB PO SCH (18:05)
[2016-12-18 18:52] LABS: MYCOPLASMA PNEUMONIAE AB (IGG) < or = 0.90
== END 2016-12-18 20:00 | disposition home or self-care (01) | DRG 871 ==
LOC: E/R 16:35 → TEL 21:49
PROVIDERS: ADMIT Internal Medicine; ATTEND Internal Medicine
PROC: 5A1D60Z (ICD-10-PCS; principal; 2016-12-15)
DX: A41.9 Sepsis, unspecified organism (principal); J18.9 Pneumonia, unspecified organism; J96.01 Acute respiratory failure with hypoxia; N18.6 End stage renal disease; E87.2 Acidosis; I12.0 Hypertensive chronic kidney disease with stage 5 chronic kidney disease or end stage renal disease; J84.89 Other specified interstitial pulmonary diseases; D63.1 Anemia in chronic kidney disease; G47.30 Sleep apnea, unspecified; R65.20 Severe sepsis without septic shock; E83.39 Other disorders of phosphorus metabolism; E87.5 Hyperkalemia; F17.200 Nicotine dependence, unspecified, uncomplicated; Y95 Nosocomial condition; Z99.2 Dependence on renal dialysis
CPT/HCPCS: 36415; 36600; 71010; 71275; 80048; 80053; 80061; 80202; 81001; 82803; 83036; 83605; 83615; 83735; 84100; 84145; 84443; 84484; 85025; 85610; 85651; 85730; 86021; 86038; 86480; 86635; 86703; 86738; 86850; 86900; 86901; 87040; 87070; 87081; 87086; 87116; 87275; 87276; 87279; 87280; 87400; 87556; 90935; 93005; 96374; 96375; C9113; J0692; J0696; J3370; Q4081; Q9967

== ENCOUNTER 2017-02-07 21:26 | Inpatient (IN) | payer MEDICARE, OTHER ==
[~2017-02-07] VITALS: Ht 162.6 cm; Wt 80.5 kg
[~2017-02-07 21:26] MED LIST changes: -ALBU8.5H3 INH; +AMOX1TAB9 PO; -AZIT250T94 PO; +DOXY100T2 PO; -PRED20TA PO
[2017-02-07 21:32] VITALS: Ht 162.6 cm; Wt 80.5 kg
[2017-02-08] VITALS (13 sets, daily range): BP systolic 152–187; BP diastolic 80–108; PULSE 75–85; RESP 16–20; TEMP 97.5
[2017-02-08 04:18] LABS: BASOPHILS % 0.4 % (0.0-2.0); EOSINOPHILS # 0.2 10^3/ul (0.0-0.5); HEMATOCRIT 29.4 % (42.0-52.0); HEMOGLOBIN 9.4 g/dl (14.0-18.0); LYMPHOCYTES # 0.8 10^3/ul (0.8-2.9); LYMPHOCYTES % 16.3 % (15.0-51.0); MEAN CORPUSCULAR HEMOGLOBIN 28.7 pg (29.0-33.0); MEAN CORPUSCULAR VOLUME 89.6 fl (82.0-101.0); MEAN PLATELET VOLUME 11.4 fl (7.4-10.4); MONOCYTE # 0.4 10^3/ul (0.3-0.9); MONOCYTES % 8.3 % (0.0-11.0); NEUTROPHIL # 3.6 10^3/ul (1.6-7.5); NEUTROPHILS % 71.4 % (39.0-77.0); PLATELET COUNT 166 10^3/UL (140-415); RED BLOOD COUNT 3.28 10^6/ul (4.70-6.10); RED CELL DISTRIBUTION WIDTH 15.9 % (11.5-14.5); WHITE BLOOD COUNT 5.1 10^3/ul (4.8-10.8)
[2017-02-08] MEDS ORDERED: CIPROFLOXACIN 400MG/D5W 200 ML IVPB STA (05:10)
[2017-02-08] MEDS ORDERED: CEFEPIME 1GM/50 ML (PMX) 50 ML IVPB STA (05:10)
[2017-02-08 05:32] LABS: ALBUMIN 4.1 g/dl (3.3-4.9); ALBUMIN/GLOBULIN RATIO 1.64; BILIRUBIN,INDIRECT 0.2 mg/dl (0-1.1); BILIRUBIN,TOTAL 0.2 mg/dl (0.2-1.3); CALCIUM 9.4 mg/dl (8.4-10.2); CREATININE 11.69 mg/dl (0.61-1.24); POTASSIUM 5.2 mmol/L (3.5-5.1); TOTAL PROTEIN 6.6 g/dl (6.1-8.1)
[2017-02-08 05:44] LABS: TROPONIN-I 0.018 ng/ml (0.00-0.12)
[2017-02-08] MEDS ORDERED: hydrALAzine 20 MG INJ IV PRN ×2 (07:00)
--- NOTE | 2017-02-08 09:07 | RADRPT ---
PROCEDURE: CHEST - 1 VIEW CLINICAL INDICATION: 51-year-old male with chest pain. TECHNIQUE: A single frontal AP upright portable view of the chest was performed. The images were reviewed on a PACS workstation. COMPARISON: Chest x-ray December 17, 2016: CTA chest December 14, 2016. FINDINGS: The cardiomediastinal silhouette enlarged but without significant interval change. There is mild pul monary vascular congestion. There are diffuse patchy these infiltrates within the right mid/lower an d left mid lung zone. There is no evidence for pneumothorax. The osseous structures are intact. IMPRESSION: 1. Cardiomegaly. 2. Mild pulmonary vascular congestion. 3. Patchy airspace infiltrates within the right mid/lower and left mid lung zone. .Russell Godoy MD, Date Time Electronically viewed and signed by .Russell Godoy MD, on 02/08/2017 04:04 .M/
[2017-02-08] MEDS ORDERED: VANCOMYCIN IV PER PHARMACY XX SCH ×2 (10:00→10:30)
[2017-02-08] MEDS ORDERED: DOCUSATE SODIUM 100 MG CAP PO PRN (10:30)
[2017-02-08] MEDS ORDERED: ALBUTEROL/IPRATROPIUM (NEB) 3 ML AMP HHN PRN (10:30)
[2017-02-08] MEDS ORDERED: NACL 0.9% 3 ML SYG IV SCH (10:30)
[2017-02-08] MEDS ORDERED: HYDROCODONE/APAP (5/325) TAB PO PRN (10:30)
[2017-02-08] MEDS ORDERED: ONDANSETRON 4 MG INJ IV PRN (10:30)
[2017-02-08] MEDS ORDERED: ACETAMINOPHEN 325 MG TAB PO PRN (10:30)
[2017-02-08] MEDS ORDERED: GUAIFENESIN/DM 5ML CUP PO PRN (10:30)
[2017-02-08] MEDS ORDERED: ACETAMINOPHEN 650 MG SUPP PR PRN (10:30)
--- NOTE | 2017-02-08 10:43 | HP ---
Date/Time of Note Date/Time of Note DATE: 02/08/17 TIME: 10:21 Assessment/Plan VTE Prophylaxis VTE Prophylaxis Intervention: SCD's Lines/Catheters IV Catheter Type [facility]from [facility]): Saline Lock Assessment/Plan Assessment/Plan 51-year-old male, presented to the emergency room for evaluation of worsening nonproductive cough associated with shortness of breath which has been going on for 3 months without improvement. 1. Persistent nonproductive cough (>3 weeks) with hypoxemic respiratory failure -likely 2/2 residual from recent pneumonia versus chronic bronchitis . Differentials include possible onset of CHF vs other pulmonary etiologies. Of note, patient was tested in November 2016 and was negative for tuberculosis. 02/08/17: Chest x-ray: Patchy airspace infiltrates within the right mid/ lower and left mid lung zone. 02/08/17: BNP:20,100. -Start empiric IV antibiotics,cough suppressants,around the clock and PRN bronchodilators, and obtain cultures. -ID evaluation was requested. -Pulmonary consult and we will follow recommendation. -2D echocardiogram will be ordered. Fluid removal with hemodialysis. Monitor intake and output closely. -ABG, CT chest and VQ scan will be obtained. 2. Elevated BNP, rule out congestive heart failure versus poor renal clearance -We will up 2D echocardiogram. 3. End-stage renal disease, on hemodialysis Tuesday, and Tuesday. Access site right upper extremity AV shunt. -Nephrology on board and we will follow recommendations. -Monitor renal function closely. 4. Hypertension, escalated. -Resume home medications. Hoping hemodialysis will bring down blood pressure to desired level. 5. Mineral bone disorder. -Resume home medications. 6. Anemia of chronic kidney disease. -H&H stable. Will monitor. DVT prophylaxis: SCDs Plan: Patient will be monitored in-house. He will be evaluated by pulmonary, nephrology and ID colleagues. We will continue patient on IV antibiotics and will follow up on cultures. Follow-up with labs and diagnostic test is ordered. Rest of the management depend on clinical course, further studies and input from consultants. Approximately 60 minutes was spent on this history and physical. Patient was seen in collaboration with . HPI/ROS Admit Date/Time Admit Date/Time Feb 08, 2017 at 05:15 Hx of Present Illness This is a 51-year-old male with a history of end-stage renal disease who is also on hemodialysis on Tuesday, and Tuesday, right upper extremity AV shunt, hypertension, recent pneumonia for which he was treated at [facility], who presented to the emergency room with complaints of nonproductive cough for a 3 month duration associated with worsening shortness of breath for approximately 1 month which is getting worse over the past few days. Patient denied weight loss, night sweats, fever, chills, PND, orthopnea, chest pain, palpitation, nausea, vomiting, abdominal pain or other constitutional symptoms. Apparently, patient was admitted at [facility] in November 2016 for similar symptoms and was tested for tuberculosis and was negative. He was then treated for pneumonia with improvement in symptoms and was discharged. On arrival, patient was noted with a blood pressure 179/95 . He was saturating 100% on room air.Initial labs with hemoglobin 9.4, hematocrit 29.4, potassium 5.2, BUN 67 and creatinine 11.69. Patient also had elevated BNP 20,100. His chest x-ray showed pulmonary vascular congestion, patchy airspace infiltrates within the right mid/lower and left mid lung zone. Patient was given cefepime and Cipro in the emergency room and was admitted. ROS 12 point review of system was assessed and is negative other than what is mentioned in HPI. PMH/Family/Social Past Medical History See HPI Past Surgical History See HPI Social History Denied CURRENT USE of alcohol, smoking or illicit drug use. Patient used to drink beer occasionally and he stopped 4 years ago. He also had social smoking years ago. Smoking Status: Never smoker Exam/Review of Systems Vital Signs Vitals Vital Signs Date Time Temp Pulse Resp B/P Pulse Ox O2 Delivery O2 Flow Rate FiO2 02/08/17 07:24 98.0 77 19 168/96 98 02/08/17 05:26 Room Air 02/08/17 04:48 2.0 Exam Exam General: Well developed,adequately built, not in any acute distress . HEENT: Normocephalic, Atraumatic, No laceration or hematoma; Eyes: PEERL, Conjunctiva clear, Anicteric sclera Neck: Supple without any lymphadenopathy, nontender, no JVD, no carotid bruits, trachea midline, no thyromegaly Cardiac: S1, S2 auscultated, regular rhythm and rate, no mumurs or gallop Pulmonary: Diminished bibasilar. Normal respiratory effort. GI: Abdomen normal to inspection. Soft, non tender, non- distended, no masses, no rebound tenderness or guarding. Bowel sounds active on all four quadrants Genitourinary: Deferred Extremities: No cyanosis, clubbing, or edema. Pulses [2+] bilaterally. Full ROM on all four extremities. No focal weakness appreciated. Neurologic: Alert to person, place, time, and situation. Affect appropriate, intact sensation. Skin: Clean,dry, and intact. No ecchymosis, no rashes, or lesions Access: Right upper extremity AV shunt. Labs Result Diagram: 02/08/17 0345 02/08/17 034 Medications Medications Current Medications Hydralazine HCl (Apresoline) 20 mg Q4H PRN IV ELEVATED SYSTOLIC BP; Start 02/08 at 07:00 Hydralazine HCl 10 mg 10 mg Q4H PRN IV ELEVATED SYSTOLIC BP; Start 02/08/17 at 07:00 Meropenem/Sodium Chloride 50 ml @ 100 mls/hr DAILY IVPB ; Start 02/08/17 at 11: 00 Vancomycin HCl/ Sodium Chloride (Vancocin/NS) 250 ml @ 83.333 mls/ hr ONCE@12 IVPB ; Start 02/08/17 at 12:00; Stop 02/08/17 at 17:00 Ondansetron HCl (Zofran Inj) 4 mg Q6H PRN IV NAUSEA AND/OR VOMITING; Start at 10:30 Acetaminophen (Tylenol Tab) 650 mg Q6H PRN PO PAIN LEVEL 1-3 OR FEVER; Start at 10:30 Acetaminophen (Tylenol Supp) 650 mg Q6H PRN AR PAIN LEVEL 1-3 OR FEVER; Start 02/08/17 at 10:30 Acetaminophen/ Hydrocodone Bitart ([place] (5/325)) 1 tab Q6H PRN PO MODERATE PAIN LEVEL 4-6; Start 02/08/17 at 10:30 Docusate Sodium (Colace) 100 mg Q12H PRN PO CONSTIPATION; Start 02/08/17 at 10: 30 Amlodipine Besylate (Norvasc) 10 mg DAILY PO ; Start 02/09/17 at 09:00 Carvedilol (Coreg) 12.5 mg BID PO ; Start 02/08/17 at 21:00 Benzonatate (Tessalon) 100 mg TID PO ; Start 02/08/17 at 13:00 Guaifenesin/ Dextromethorphan (Robitussin Dm Liquid Cup) 10 ml Q4H PRN PO cough ; Start 02/08/17 at 10:30 LAISHA MUSTAFA NP Feb 08, 2017 10:32
[2017-02-08 11:18] LABS: AADO2 Arterial 37.2 mmHg (7.0-24.0); Allen Test ACCEPTAB; Arterial Base Excess -1.5 mmol/L (-3.0-3); Arterial COHb 0.2 % (0.0-3.0); Arterial Fraction of Oxyhgb 89.2 % (93.0-99.0); Arterial HCO3 23.7 mmol/L (22.0-26.0); Arterial MetHb 0.2 % (0.0-1.5); Arterial Total Hemglobin 9.8 g/dl (12.0-18.0); MODE ROOM AIR
[2017-02-08] MEDS ORDERED: VANCOMYCIN 1.5 GM in SOD CHLORIDE 0.9% 250 ML IVPB SCH (12:00)
[2017-02-08] MEDS: ALBUTEROL/IPRATROPIUM (NEB) 3 ML AMP HHN SCH ×3 (12:13→21:02)
[2017-02-08 12:59] LABS: TROPONIN-I 0.015 ng/ml (0.00-0.12)
[2017-02-08 13:02] LABS: CK-MB 1.95 ng/ml (0.0-2.4)
--- NOTE | 2017-02-08 13:59 | RADRPT ---
PROCEDURE: CT Chest without contrast. CLINICAL INDICATION: Chest pain and shortness of breath. TECHNIQUE: Helical axial sections were obtained through the chest without intravenous contrast enh ancement. Coronal and sagittal reformatted images were obtained from the axial source images. Total exam DLP is 543.94 mGy-cm. CTDIvol is 12.86 mGy. One or more of the following dose reduction fernando hniques were used: Automated exposure control, adjustment of the mA and/or kV according to patient s ize, use of iterative reconstruction technique. COMPARISON: Chest x-ray done earlier the same day. CT scan of the chest dated 12/14/2016. FINDINGS: There is mild patchy ground-glass opacification of the lungs system with an inflammatory or infectio us process, markedly improved when compared with 12/14/2016. There is mild atelectasis in the left lower lobe. The lungs are otherwise clear with no other airspace or interstitial disease. There is no pulmonary nodule or mass lesion. There are multiple small and borderline enlarged middle mediastinal lymph nodes with the largest in the right paratracheal region measuring 1.2 x 1.6 cm. Smaller nodes are present in the right paratra cheal region, aorticopulmonary window, and subcarinal region. There is no hilar lymphadenopathy. There is no axillary, supraclavicular, or internal mammary lymphadenopathy. The thoracic aorta is not dilated. There is calcification in the aorta consistent with atheroscleros is. The heart is enlarged. There is coronary artery calcification. There are small bilateral pleural effusions and there is a small pericardial effusion. Images through the upper abdomen demonstrate normal visualized portions of the liver, spleen, and ad renals. There is a benign 1.6 cm cyst in the upper right kidney. The left kidney is not visualized. IMPRESSION: 1. Improved appearance of the lungs. 2. Mild left lower lobe atelectasis. 3. Unchanged appearance of mediastinal lymphadenopathy, likely reactive. 4. Atherosclerosis. 5. Cardiomegaly and coronary artery calcification. 6. Small bilateral pleural effusions and small pericardial effusion. 7. Benign cyst in the upper right kidney. RPTAT: QQ .Caleb Saldana MD, MD Date Time Electronically viewed and signed by .Caleb Saldana MD, on 02/08/2017 13:58 .R/
[2017-02-08] MEDS: BENZONATATE 100 MG CAP PO SCH ×2 (14:02→20:47)
[2017-02-08] MEDS: MEROPENEM 500MG/50 ML (PMX) 50 ML IVPB SCH (14:12)
[2017-02-08] MEDS: SEVELAMER CARBONATE 0.8 GM PKT PO SCH ×2 (14:12→17:55)
[2017-02-08 15:16] LABS: TROPONIN-I 0.013 ng/ml (0.00-0.12)
[2017-02-08 15:20] LABS: CK-MB 1.78 ng/ml (0.0-2.4)
[2017-02-08] MEDS ORDERED: CEFEPIME 1GM/50 ML (PMX) 50 ML IVPB SCH (21:00)
--- NOTE | 2017-02-08 23:27 | CONS ---
DATE OF ADMISSION: 02/08/2017 DATE OF CONSULTATION: 02/08/2017 REASON FOR CONSULTATION: End-stage renal disease. Thank you, Dr. Welsh for asking me to participate in medical management of this patient. HISTORY OF PRESENT ILLNESS: This 51-year-old man who is well known to me was admitted last night because of persistent cough. He was initially seen on November 27, 2016 in the emergency room because of a cough. He also had some hemoptysis. The patient was seen by the ER physician and was given a Z-Giovany and sent home with a diagnosis of bronchitis. The patient then presented to this hospital again on 12/14/2016, and at that time he was admitted and was diagnosed with pneumonia. He had a CT angiogram at that time which showed diffuse patchy and confluent perihilar ground glass opacities with relative sparing of the left lower lobe, as well as mediastinal lymphadenopathy. The patient was felt to have pneumonia and was treated with antibiotics. He was seen by Dr. Tamez, personalization specialist, and Dr. Fontenot, an infectious disease specialist. The patient was given antibiotics including cefepime and doxycycline. The patient improved during that admission. His cough resolved and he was up walking around. He was eventually discharged home on Augmentin and doxycycline. He was seen by me in the dialysis unit and seemed to improve, and then last week he started with a cough again and this has progressed and yesterday he presented to the emergency room with an increase in his cough and shortness of breath. The patient denies fever or chills. He was also given a course of Levaquin about 2 weeks ago when the cough reappeared. That seemed to help him also. Patient before this cough started had traveled to [facility] with his family. Everyone in his family including him got sick with a respiratory infection. Everyone else cleared except for him and he has had this persistent intermittent cough with infiltrates and pneumonia. The patient does have end-stage renal disease and is on maintenance hemodialysis Tuesday, , Tuesday, and he is due for dialysis today. PAST MEDICAL HISTORY: 1. End-stage renal disease on maintenance hemodialysis. Right upper arm AV fistula which works well. 2. Hypertension. 3. Secondary hyperparathyroidism. PREADMISSION MEDICATIONS: 1. Amlodipine 10 mg a day. 2. Carvedilol 12.5 mg twice a day. 3. Renvela 800 mg 2 tablets with each meal. ALLERGIES: HE HAS NO KNOWN DRUG ALLERGIES. PAST SURGICAL HISTORY: Have included right upper arm AV fistula placement for hemodialysis. PHYSICAL EXAMINATION: GENERAL: Well-developed man in no apparent distress. VITAL SIGNS: Temperature is 98.7, pulse of 80, respirations 16, blood pressure 172/102, O2 sat 100% on room air. HEENT: Head normocephalic. Eyes: Extraocular muscles intact. Nose and mouth are normal. NECK: Supple. No neck vein distention. LUNGS: Diminished breath sounds bilaterally. No rales or wheezes. HEART: Regular rhythm. No murmurs, gallops, or rubs. ABDOMEN: Soft, nontender. No masses or megaly. EXTREMITIES: No peripheral edema. Right upper arm AV fistula for hemodialysis. IMPRESSION: 1. This patient presents now with a cough that has been intermittent for the last three months. He has been on several courses of antibiotics including cefepime, Zithromax, Augmentin, doxycycline, Levaquin. When he was in the hospital in November, he had BNP. He also had an acid-fast stain done which was negative. Cultures are pending. He had a full LORIN screen which was negative, ANCA screen was negative, proteinase 3 antibody, which was low; myeloperoxidase was low. HIV 1 and 2 was negative. Mycoplasma pneumonia IgG was low. TB test Gold was negative. 2. End-stage renal disease on maintenance hemodialysis. 3. Hypertension. 4. Anemia of chronic disease. PLAN: 1. He is due for hemodialysis today, which has been ordered. 2. CAT scan of the chest has been ordered. 3. Infectious Disease consultation, Dr. Po palencia. 4. Pulmonary consultation. Recommend consideration of bronchoscopy. 5. I will follow the patient along with you. Dictated By: Rom Ordoñez MD /alyssa/ludin /Document#: [id number]
[2017-02-09] MEDS: ALBUTEROL/IPRATROPIUM (NEB) 3 ML AMP HHN SCH ×6 (01:25→20:09)
[2017-02-09 02:02] VITALS: BP 154/85; RESP 20
[2017-02-09 05:16] LABS: BASOPHILS % 0.2 % (0.0-2.0); EOSINOPHILS # 0.1 10^3/ul (0.0-0.5); EOSINOPHILS % 2.9 % (0.0-7.0); HEMATOCRIT 27.7 % (42.0-52.0); HEMOGLOBIN 8.8 g/dl (14.0-18.0); LYMPHOCYTES # 0.7 10^3/ul (0.8-2.9); LYMPHOCYTES % 15.2 % (15.0-51.0); MEAN CORPUSCULAR HEMOGLOBIN 28.3 pg (29.0-33.0); MEAN CORPUSCULAR HGB CONC 31.8 g/dl (32.0-37.0); MEAN CORPUSCULAR VOLUME 89.1 fl (82.0-101.0); MEAN PLATELET VOLUME 11.2 fl (7.4-10.4); MONOCYTE # 0.4 10^3/ul (0.3-0.9); NEUTROPHIL # 3.5 10^3/ul (1.6-7.5); NEUTROPHILS % 72.3 % (39.0-77.0); PLATELET COUNT 156 10^3/UL (140-415); RED BLOOD COUNT 3.11 10^6/ul (4.70-6.10); RED CELL DISTRIBUTION WIDTH 15.7 % (11.5-14.5); WHITE BLOOD COUNT 4.8 10^3/ul (4.8-10.8)
[2017-02-09 05:28] LABS: INR 1.15; PARTIAL THROMBOPLASTIN TIME 34.5 Sec (25.0-35.0); PROTIME 14.7 Sec (12.2-14.2); PT RATIO 1.1
[2017-02-09 05:35] LABS: CHOL/HDL RATIO 3.3 RATIO; MAGNESIUM 2.3 mg/dl (1.7-2.5); PHOSPHORUS 7.8 mg/dl (2.5-4.9)
[2017-02-09 05:37] LABS: ALBUMIN 3.5 g/dl (3.3-4.9); ALBUMIN/GLOBULIN RATIO 1.45; BILIRUBIN,INDIRECT 0.2 mg/dl (0-1.1); BILIRUBIN,TOTAL 0.2 mg/dl (0.2-1.3); CALCIUM 8.9 mg/dl (8.4-10.2); CREATININE 8.72 mg/dl (0.61-1.24); POTASSIUM 4.7 mmol/L (3.5-5.1); TOTAL PROTEIN 5.9 g/dl (6.1-8.1)
[2017-02-09 06:04] LABS: THYROID STIMULATING HORMONE 1.52 MIU/L (0.465-4.680)
--- NOTE | 2017-02-09 07:30 | CONS ---
Date/Time of Note Date/Time of Note DATE: 02/09/17 TIME: 07:12 Assessment/Plan Assessment/Plan Chief Complaint/Hosp Course 1) persistent cough without much in way of constitutional symptoms started on vanco/merrem and pt states he is feeling better pt unable to bring up phlegm CT chest shows some atelectasis and mediastinal LN's which were present before the CT chest is much improved c/w 11/2016 get nasal swab for MRSA, send urine for histoplasma Ag check procalcitonin, ESR, CRP, LDH and GABE level doubt pt has mycobacterial, fungal, viral etiology at this time (all were negative in 11/2016) doubt he has a vasculitis, his LORIN and ANCA were neg in 11/2016 non specific pneumonitis is possible but this would require lung bx for diagnosis continue with merrem and change vanco to doxy 2) ESRD on HD 3) HTN Problems: Consultation Date/Type/Reason Admit Date/Time Feb 08, 2017 at 05:15 Date of Consultation: Feb 09, 2017 Type of Consultation: ID Hx of Present Illness pt states he has his cough for 3 months he was seen in november for this cough and improved with cefepime/doxy and then augmentin/doxy he states he felt well for about 3 days then the cough returned he has been treated with levaquin as an outpt since then without improvement sometimes his cough is better with HD He denies F but feels cold at times and gets occasional sweats Last hospitalization he had sputum for AFB x2 which was neg He had neg beta d glucan and neg cocci titers he had neg viral pcr of nares he routine cx were also negative his LORIN was also neg he denies COHEN, sore throat, coryza, D, joint pains, muscle aches. He gets vomiting at times when he brushes his teeth no rashes Past Medical History ESRD, HTN Past Surgical History RUE AV fistula Social History Smoking Status: Never smoker Exam/Review of Systems Vital Signs Vitals Vital Signs Date Time Temp Pulse Resp B/P Pulse Ox O2 Delivery O2 Flow Rate FiO2 02/09/17 06:05 75 18 96 Nasal Cannula 2.0 02/09/17 02:02 98.4 154/85 Intake and Output 02/08/17 02/08/17 02/09/17 15:00 23:00 07:00 Intake Total 250 ml 920 ml 400 ml Output Total 3500 ml Balance 250 ml -2580 ml 400 ml Exam Constitutional: alert, oriented Psych: no complaints Head: normocephalic Eyes: nl sclera ENMT: mucosa pink and moist Neck: supple Respiratory: other (L base occasional soft rales) Cardiovascular: regular rate and rhythm Gastrointestinal: non-tender, soft Extremities: other (no swelling) Neurological: other (non focal) Results Result Diagram: 02/09/17 0428 02/09/17 0428 Results 24 hrs Laboratory Tests Test 02/08/17 10:25 02/08/17 11:40 02/08/17 14:23 02/09/17 04:28 Blood Gas Specimen Source Blood arterial Arterial Blood Date Drawn 02/08/2017 11:05:32 AM Arterial Blood pH (Temp corrected) 7.370 Arterial Blood pCO2 (Temp correct) 41.9 Arterial Blood pO2 (Temp corrected) 62.4 L Arterial Blood HCO3 23.7 Arterial Blood Base Excess -1.5 Arterial Blood Oxygen Saturation 89.6 L [place] Test ACCEPTAB Arterial Blood Gas Puncture Site Left Radial Arterial Blood Carboxyhemoglobin 0.2 Arterial Blood Methemoglobin 0.2 Blood Gas A-a O2 Differential 37.2 H Oxyhemoglobin Percent 89.2 L Total Hemoglobin 9.8 L Blood Gas Temperature 37.0 Blood Gas Modality ROOM AIR FiO2 21.0 Blood Gas Notified Whom TM Blood Gas Notified Time 02/08/2017 11:18:00 AM Creatine Kinase 71 63 Creatine Kinase Index 2.7 2.8 Creatinine Kinase MB (Mass) 1.95 1.78 Troponin I 0.015 0.013 White Blood Count 4.8 Red Blood Count 3.11 L Hemoglobin 8.8 L Hematocrit 27.7 L Mean Corpuscular Volume 89.1 Mean Corpuscular Hemoglobin 28.3 L Mean Corpuscular Hemoglobin Concent 31.8 L Red Cell Distribution Width 15.7 H Platelet Count 156 Mean Platelet Volume 11.2 H Neutrophils % 72.3 Lymphocytes % 15.2 Monocytes % 9.0 Eosinophils % 2.9 Basophils % 0.2 Nucleated Red Blood Cells % 0.0 Neutrophils # 3.5 Lymphocytes # 0.7 L Monocytes # 0.4 Eosinophils # 0.1 Basophils # 0.0 Nucleated Red Blood Cells # 0.0 Prothrombin Time 14.7 H Prothrombin Time Ratio 1.1 INR International Normalized Ratio 1.15 Activated Partial Thromboplast Time 34.5 Sodium Level 137 Potassium Level 4.7 Chloride Level 97 Carbon Dioxide Level 31 Anion Gap 14 Blood Urea Nitrogen 44 #H Creatinine 8.72 #H Glucose Level 82 Calcium Level 8.9 Phosphorus Level 7.8 H Magnesium Level 2.3 Total Bilirubin 0.2 Direct Bilirubin 0.00 Indirect Bilirubin 0.2 Aspartate Amino Transf (AST/SGOT) 16 Alanine Aminotransferase (ALT/SGPT) 29 Alkaline Phosphatase 80 Total Protein 5.9 L Albumin 3.5 Globulin 2.40 Albumin/Globulin Ratio 1.45 Triglycerides Level 90 Cholesterol Level 98 L LDL Cholesterol, Calculated 51 HDL Cholesterol 29 Cholesterol/HDL Ratio 3.3 Thyroid Stimulating Hormone (TSH) 1.520 Medications Medications Current Medications Hydralazine HCl (Apresoline) 20 mg Q4H PRN IV ELEVATED SYSTOLIC BP; Start 02/08 at 07:00 Hydralazine HCl 10 mg 10 mg Q4H PRN IV ELEVATED SYSTOLIC BP; Start 02/08/17 at 07:00 Meropenem/Sodium Chloride (Merrem 500mg/50 ml(Pmx)) 50 ml @ 100 mls/hr DAILY IVPB Last administered on 02/08/17 14:12; Admin Dose 100 MLS/HR; Start at 11:00 Ondansetron HCl (Zofran Inj) 4 mg Q6H PRN IV NAUSEA AND/OR VOMITING; Start at 10:30 Acetaminophen (Tylenol Tab) 650 mg Q6H PRN PO PAIN LEVEL 1-3 OR FEVER; Start at 10:30 Acetaminophen (Tylenol Supp) 650 mg Q6H PRN AR PAIN LEVEL 1-3 OR FEVER; Start 02/08/17 at 10:30 Acetaminophen/ Hydrocodone Bitart ([place] (5/325)) 1 tab Q6H PRN PO MODERATE PAIN LEVEL 4-6; Start 02/08/17 at 10:30 Docusate Sodium (Colace) 100 mg Q12H PRN PO CONSTIPATION; Start 02/08/17 at 10: 30 Amlodipine Besylate (Norvasc) 10 mg DAILY PO ; Start 02/09/17 at 09:00 Carvedilol (Coreg) 12.5 mg BID PO Last administered on 02/08/17 20:49; Admin Dose 12.5 MG; Start 02/08/17 at 21:00 Benzonatate (Tessalon) 100 mg TID PO Last administered on 02/08/17t 20:47; Admin Dose 100 MG; Start 02/08/17 at 13:00 Guaifenesin/ Dextromethorphan (Robitussin Dm Liquid Cup) 10 ml Q4H PRN PO cough ; Start 02/08/17 at 10:30 JESSICA MILLER MD Feb 09, 2017 07:22
[2017-02-09 07:38] VITALS: BP 156/82; RESP 16
--- NOTE | 2017-02-09 08:53 | PN ---
Date/Time of Note Date/Time of Note DATE: 02/09/17 TIME: 08:48 Assessment/Plan VTE Prophylaxis VTE Prophylaxis Intervention: ambulation Lines/Catheters IV C[facility]ter Type [facility]from [facility] Urinary Cath still in place: No Assessment/Plan Chief Complaint/Hosp Course 51-year-old male, presented to the emergency room for evaluation of worsening nonproductive cough associated with shortness of breath which has been going on for 3 months without improvement. 1. Persistent nonproductive cough (>3 weeks) with hypoxemic respiratory failure - likely 2/2 residual from recent pneumonia versus chronic bronchitis. Differentials include possible onset of CHF vs other pulmonary etiologies.Of note, patient was tested in November 2016 and was negative for tuberculosis. Improved. 02/08/17: Chest x-ray: Patchy airspace infiltrates within the right mid/ lower and left mid lung zone. 02/08/17: BNP:20,100. 02/08/2017: CT chest without contrast. Unchanged appearance of mediastinal lymphadenopathy, likely reactive. -Continue broad-spectrum IV antibiotics,cough suppressants,around the clock and PRN bronchodilators, and we will up cultures. -ID evaluation greatly appreciated. -Pulmonary consult has been called and we will follow recommendation. -Follow-up with 2D echocardiogram and VQ scan. Fluid removal with hemodialysis. Monitor intake and output closely. 2. Elevated BNP, rule out congestive heart failure versus poor renal clearance -We will up 2D echocardiogram. 3. End-stage renal disease, on hemodialysis Tuesday, and Tuesday. Access site right upper extremity AV shunt. -Nephrology on board and we will follow recommendations. -Monitor renal function closely. 4. Hypertension, escalated. -Continue home medications. Hoping hemodialysis will bring down blood pressure to desired level. 5. Mineral bone disorder. -Continue home medications. 6. Anemia of chronic kidney disease. -H&H stable. Will monitor. DVT prophylaxis: SCDs Plan: Overall patient with significant improvement in his symptoms. Continue current medical management. Awaiting pulmonary recommendations. Patient was seen in collaboration with . Problems: Subjective 24 Hr Interval Summary Free Text/Dictation Patient feels much improvement in cough. He does not have any fever or chills. Exam/Review of Systems Vital Signs Vitals Vital Signs Date Time Temp Pulse Resp B/P Pulse Ox O2 Delivery O2 Flow Rate FiO2 02/09/17 07:38 98.5 82 16 156/82 94 02/09/17 06:05 Nasal Cannula 2.0 Intake and Output 02/08/17 02/08/17 02/09/17 15:00 23:00 07:00 Intake Total 250 ml 920 ml 400 ml Output Total 3500 ml Balance 250 ml -2580 ml 400 ml Exam General: Well developed,adequately built, not in any acute distress . HEENT: Normocephalic, Atraumatic, No laceration or hematoma; Eyes: PEERL, Conjunctiva clear, Anicteric sclera Neck: Supple without any lymphadenopathy, nontender, no JVD, no carotid bruits, trachea midline, no thyromegaly Cardiac: S1, S2 auscultated, regular rhythm and rate, no mumurs or gallop Pulmonary: Diminished bibasilar. Normal respiratory effort. GI: Abdomen normal to inspection. Soft, non tender, non- distended, no masses, no rebound tenderness or guarding. Bowel sounds active on all four quadrants Genitourinary: Deferred Extremities: No cyanosis, clubbing, or edema. Pulses [2+] bilaterally. Full ROM on all four extremities. No focal weakness appreciated. Neurologic: Alert to person, place, time, and situation. Affect appropriate, intact sensation. Skin: Clean,dry, and intact. No ecchymosis, no rashes, or lesions Access: Right upper extremity AV shunt. Results Result Diagram: 02/09/17 0428 02/09/17 0428 Results 24 hrs Laboratory Tests Test 02/08/17 10:25 02/08/17 11:40 02/08/17 14:23 02/09/17 04:28 Blood Gas Specimen Source Blood arterial Arterial Blood Date Drawn 02/08/2017 11:05:32 AM Arterial Blood pH (Temp corrected) 7.370 Arterial Blood pCO2 (Temp correct) 41.9 Arterial Blood pO2 (Temp corrected) 62.4 L Arterial Blood HCO3 23.7 Arterial Blood Base Excess -1.5 Arterial Blood Oxygen Saturation 89.6 L [place] Test ACCEPTAB Arterial Blood Gas Puncture Site Left Radial Arterial Blood Carboxyhemoglobin 0.2 Arterial Blood Methemoglobin 0.2 Blood Gas A-a O2 Differential 37.2 H Oxyhemoglobin Percent 89.2 L Total Hemoglobin 9.8 L Blood Gas Temperature 37.0 Blood Gas Modality ROOM AIR FiO2 21.0 Blood Gas Notified Whom TM Blood Gas Notified Time 02/08/2017 11:18:00 AM Creatine Kinase 71 63 Creatine Kinase Index 2.7 2.8 Creatinine Kinase MB (Mass) 1.95 1.78 Troponin I 0.015 0.013 White Blood Count 4.8 Red Blood Count 3.11 L Hemoglobin 8.8 L Hematocrit 27.7 L Mean Corpuscular Volume 89.1 Mean Corpuscular Hemoglobin 28.3 L Mean Corpuscular Hemoglobin Concent 31.8 L Red Cell Distribution Width 15.7 H Platelet Count 156 Mean Platelet Volume 11.2 H Neutrophils % 72.3 Lymphocytes % 15.2 Monocytes % 9.0 Eosinophils % 2.9 Basophils % 0.2 Nucleated Red Blood Cells % 0.0 Neutrophils # 3.5 Lymphocytes # 0.7 L Monocytes # 0.4 Eosinophils # 0.1 Basophils # 0.0 Nucleated Red Blood Cells # 0.0 Prothrombin Time 14.7 H Prothrombin Time Ratio 1.1 INR International Normalized Ratio 1.15 Activated Partial Thromboplast Time 34.5 Sodium Level 137 Potassium Level 4.7 Chloride Level 97 Carbon Dioxide Level 31 Anion Gap 14 Blood Urea Nitrogen 44 #H Creatinine 8.72 #H Glucose Level 82 Hemoglobin A1c 4.6 Calcium Level 8.9 Phosphorus Level 7.8 H Magnesium Level 2.3 Total Bilirubin 0.2 Direct Bilirubin 0.00 Indirect Bilirubin 0.2 Aspartate Amino Transf (AST/SGOT) 16 Alanine Aminotransferase (ALT/SGPT) 29 Alkaline Phosphatase 80 Total Protein 5.9 L Albumin 3.5 Globulin 2.40 Albumin/Globulin Ratio 1.45 Triglycerides Level 90 Cholesterol Level 98 L LDL Cholesterol, Calculated 51 HDL Cholesterol 29 Cholesterol/HDL Ratio 3.3 Thyroid Stimulating Hormone (TSH) 1.520 Medications Medications Current Medications Hydralazine HCl (Apresoline) 20 mg Q4H PRN IV ELEVATED SYSTOLIC BP; Start 02/08 at 07:00 Hydralazine HCl 10 mg 10 mg Q4H PRN IV ELEVATED SYSTOLIC BP; Start 02/08/17 at 07:00 Meropenem/Sodium Chloride (Merrem 500mg/50 ml(Pmx)) 50 ml @ 100 mls/hr DAILY IVPB Last administered on 02/08/17t 14:12; Admin Dose 100 MLS/HR; Start at 11:00 Ondansetron HCl (Zofran Inj) 4 mg Q6H PRN IV NAUSEA AND/OR VOMITING; Start at 10:30 Acetaminophen (Tylenol Tab) 650 mg Q6H PRN PO PAIN LEVEL 1-3 OR FEVER; Start at 10:30 Acetaminophen (Tylenol Supp) [address] PAIN LEVEL 1-3 OR FEVER; Start 02/08/17 at 10:30 Acetaminophen/ Hydrocodone Bitart ([place] (5/325)) 1 tab Q6H PRN PO MODERATE PAIN LEVEL 4-6; Start 02/08/17 at 10:30 Docusate Sodium (Colace) 100 mg Q12H PRN PO CONSTIPATION; Start 02/08/17 at 10: 30 Amlodipine Besylate (Norvasc) 10 mg DAILY PO ; Start 02/09/17 at 09:00 Carvedilol (Coreg) 12.5 mg BID PO Last administered on 02/08/17 20:49; Admin Dose 12.5 MG; Start 02/08/17 at 21:00 Benzonatate (Tessalon) 100 mg TID PO Last administered on 02/08/17 20:47; Admin Dose 100 MG; Start 02/08/17 at 13:00 Guaifenesin/ Dextromethorphan (Robitussin Dm Liquid Cup) 10 ml Q4H PRN PO cough ; Start 02/08/17 at 10:30 Doxycycline Hyclate (Vibramycin) 100 mg BID PO ; Start 02/09/17 at 09:00 LAISHA MUSTAFA NP Feb 09, 2017 08:52
[2017-02-09] MEDS: SEVELAMER CARBONATE 0.8 GM PKT PO SCH ×3 (10:09→17:33)
[2017-02-09] MEDS: AMLODIPINE 10 MG TAB PO SCH (10:16)
[2017-02-09] MEDS: BENZONATATE 100 MG CAP PO SCH ×3 (10:17→21:52)
[2017-02-09] MEDS: DOXYCYCLINE 100 MG TAB PO SCH ×2 (10:17→21:52)
[2017-02-09] MEDS: MEROPENEM 500MG/50 ML (PMX) 50 ML IVPB SCH (10:24)
--- NOTE | 2017-02-09 12:19 | CONS ---
Date/Time of Note Date/Time of Note DATE: 02/09/17 TIME: 12:13 Assessment/Plan Assessment/Plan Additional Assessment/Plan Chest x-ray was reviewed from yesterday which is showing cardiomegaly. CT chest also was reviewed which is showing minimal bibasilar atelectasis. Assessment and recommendations; 1. Patient admitted with shortness of breath which is a combination of possibly some element of diastolic dysfunction causing mild body edema. 2. Acute/chronic bronchitis. 3. Chronic renal failure. 4. Hypertension. 5. Anemia. Discontinue meropenem. Start Zithromax 50 mg orally daily. Continue other supportive measures. Obtain 2D echocardiogram. Consultation Date/Type/Reason Admit Date/Time Feb 08, 2017 at 05:15 Date of Consultation: Feb 09, 2017 Type of Consultation: Pulmonary Reason for Consultation Pulmonary consultation requested for evaluation of chronic cough and hypoxemia. Next History of presenting any; patient is a pleasant 51-year-old male who came into the emergency room yesterday with a few weeks history of increasing chest congestion and coughing. Patient also has had occasional wheezing. Denies any hemoptysis but complains of very scant sputum production. Denies having any chest pain. One further evaluation a CT of the chest was done which is essentially unremarkable except for minimal basilar atelectasis. Chest x-ray also was done which is unremarkable. However does have elevated BNP level indicative of mild decompensated congestive heart failure. Was also quite hypertensive. According to the patient he is feeling much better since admission. Past medical history; 1. Chronic renal failure, on hemodialysis for the last several years. 2. Chronic anemia. 3. Hypertension. 4. No known coronary artery disease. 5. No history of any surgeries. Medications; reviewed. Allergies; none. Social history; smoking few years ago, patient was very scant smoker. No history of any alcohol or drug abuse. Family history; patient is , various family members have diabetes hypertension. Occupation history; patient is on disability. Review of systems; denies any headache, visual changes. Any sinus symptoms. Shortness of breath chest congestion has improved significantly since admission. Denies any abdominal pain, nausea or vomiting. Complains of mild chronic orthopnea. Denies any edema. Denies any melena or hematochezia. Denies any acid reflux. Any chest pain. Any wheezing. Denies any weight loss. General exam; middle-aged male, currently in no distress. Awake and alert. Psychological: no complaints Social History Smoking Status: Never smoker Exam/Review of Systems Vital Signs Vitals Vital Signs Date Time Temp Pulse Resp B/P Pulse Ox O2 Delivery O2 Flow Rate FiO2 02/09/17 08:57 76 18 89 02/09/17 07:38 98.5 156/82 02/09/17 06:05 Nasal Cannula 2.0 Intake and Output 02/08/17 02/08/17 02/09/17 15:00 23:00 07:00 Intake Total 250 ml 920 ml 400 ml Output Total 3500 ml Balance 250 ml -2580 ml 400 ml Exam HEENT exam; supple neck, no JVD. No lymphadenopathy. Midline trachea. No thyromegaly. Patient has good dentition. Pupils are equal and reactive to light. No neck bruits. Pharynx is clear. Chest exam; clear to auscultation. S1-S2 audible, no murmurs. Regular rhythm. Abdomen exam; soft, nontender. No organomegaly. Bowel sounds audible. Extremity exam; no peripheral edema. Pulses 1+ bilaterally. No clubbing. [employer] exam; no focal deficit. Results Result Diagram: 02/09/17 0428 02/09/17 0428 Results 24 hrs Laboratory Tests Test 02/08/17 14:23 02/09/17 04:28 Creatine Kinase 63 Creatine Kinase Index 2.8 Creatinine Kinase MB (Mass) 1.78 Troponin I 0.013 White Blood Count 4.8 Red Blood Count 3.11 L Hemoglobin 8.8 L Hematocrit 27.7 L Mean Corpuscular Volume 89.1 Mean Corpuscular Hemoglobin 28.3 L Mean Corpuscular Hemoglobin Concent 31.8 L Red Cell Distribution Width 15.7 H Platelet Count 156 Mean Platelet Volume 11.2 H Neutrophils % 72.3 Lymphocytes % 15.2 Monocytes % 9.0 Eosinophils % 2.9 Basophils % 0.2 Nucleated Red Blood Cells % 0.0 Neutrophils # 3.5 Lymphocytes # 0.7 L Monocytes # 0.4 Eosinophils # 0.1 Basophils # 0.0 Nucleated Red Blood Cells # 0.0 Prothrombin Time 14.7 H Prothrombin Time Ratio 1.1 INR International Normalized Ratio 1.15 Activated Partial Thromboplast Time 34.5 Sodium Level 137 Potassium Level 4.7 Chloride Level 97 Carbon Dioxide Level 31 Anion Gap 14 Blood Urea Nitrogen 44 #H Creatinine 8.72 #H Glucose Level 82 Hemoglobin A1c 4.6 Calcium Level 8.9 Phosphorus Level 7.8 H Magnesium Level 2.3 Total Bilirubin 0.2 Direct Bilirubin 0.00 Indirect Bilirubin 0.2 Aspartate Amino Transf (AST/SGOT) 16 Alanine Aminotransferase (ALT/SGPT) 29 Alkaline Phosphatase 80 Total Protein 5.9 L Albumin 3.5 Globulin 2.40 Albumin/Globulin Ratio 1.45 Triglycerides Level 90 Cholesterol Level 98 L LDL Cholesterol, Calculated 51 HDL Cholesterol 29 Cholesterol/HDL Ratio 3.3 Thyroid Stimulating Hormone (TSH) 1.520 Medications Medications Current Medications Hydralazine HCl (Apresoline) 20 mg Q4H PRN IV ELEVATED SYSTOLIC BP; Start 02/08 at 07:00 Hydralazine HCl 10 mg 10 mg Q4H PRN IV ELEVATED SYSTOLIC BP; Start 02/08/17 at 07:00 Meropenem/Sodium Chloride (Merrem 500mg/50 ml(Pmx)) 50 ml @ 100 mls/hr DAILY IVPB Last administered on 02/09/17 10:24; Admin Dose 100 MLS/HR; Start at 11:00 Ondansetron HCl (Zofran Inj) 4 mg Q6H PRN IV NAUSEA AND/OR VOMITING; Start at 10:30 Acetaminophen (Tylenol Tab) 650 mg Q6H PRN PO PAIN LEVEL 1-3 OR FEVER; Start at 10:30 Acetaminophen (Tylenol Supp) 650 mg Q6H PRN [place] PAIN LEVEL 1-3 OR FEVER; Start 02/08/17 at 10:30 Acetaminophen/ Hydrocodone Bitart ([place] (5/325)) 1 tab Q6H PRN PO MODERATE PAIN LEVEL 4-6; Start 02/08/17 at 10:30 Docusate Sodium (Colace) 100 mg Q12H PRN PO CONSTIPATION; Start 02/08/17 at 10: 30 Amlodipine Besylate (Norvasc) 10 mg DAILY PO Last administered on 02/09/17 10: 16; Admin Dose 10 MG; Start 02/09/17 at 09:00 Carvedilol (Coreg) 12.5 mg BID PO Last administered on 02/09/17 10:16; Admin Dose 12.5 MG; Start 02/08/17 at 21:00 Benzonatate (Tessalon) 100 mg TID PO Last administered on 02/09/17 10:17; Admin Dose 100 MG; Start 02/08/17 at 13:00 Guaifenesin/ Dextromethorphan (Robitussin Dm Liquid Cup) 10 ml Q4H PRN PO cough ; Start 02/08/17 at 10:30 Doxycycline Hyclate (Vibramycin) 100 mg BID PO Last administered on 02/09/17 10:17; Admin Dose 100 MG; Start 02/09/17 at 09:00 KESHA TREVIÑO Feb 09, 2017 12:19
[2017-02-09] MEDS ORDERED: AZITHROMYCIN 250 MG TAB PO SCH (12:30)
--- NOTE | 2017-02-09 13:50 | CONS ---
Date/Time of Note Date/Time of Note DATE: 02/09/17 TIME: 13:40 Assessment/Plan Assessment/Plan Chief Complaint/Hosp Course I. ESRD , on maintenance hemodialysis TTS . He was dialyzed yesterday .He is due for hemodialysis tomorrow . 2. Cough and SOB . This could all be due to CHF / fluid overload , Pulmonary and ID consultants are following the patient .Will order Echocardiogram . 3. HTN Problems: Consultation Date/Type/Reason Admit Date/Time Feb 08, 2017 at 05:15 Initial Consult Date 02/09/17 Type of Consultation: Pulmonary 24 HR Interval Summary Free Text/Dictation He had dialysis yesterday and is feeling better today . Less SOB and less cough . Constitutional: improved, no complaints Exam/Review of Systems Vital Signs Vitals Vital Signs Date Time Temp Pulse Resp B/P Pulse Ox O2 Delivery O2 Flow Rate FiO2 02/09/17 12:17 2.0 02/09/17 12:14 74 18 97 Nasal Cannula 02/09/17 07:38 98.5 156/82 Intake and Output 02/08/17 02/08/17 02/09/17 15:00 23:00 07:00 Intake Total 250 ml 920 ml 400 ml Output Total 3500 ml Balance 250 ml -2580 ml 400 ml Exam Constitutional: alert, oriented, well developed Psych: nl mood/affect, no complaints Respiratory: clear to auscultation, normal air movement Cardiovascular: regular rate and rhythm Gastrointestinal: soft Musculoskeletal: nl extremities to inspection Results Result Diagram: 02/09/17 0428 02/09/17 0428 Results 24 hrs Laboratory Tests Test 02/08/17 14:23 02/09/17 04:28 Creatine Kinase 63 Creatine Kinase Index 2.8 Creatinine Kinase MB (Mass) 1.78 Troponin I 0.013 White Blood Count 4.8 Red Blood Count 3.11 L Hemoglobin 8.8 L Hematocrit 27.7 L Mean Corpuscular Volume 89.1 Mean Corpuscular Hemoglobin 28.3 L Mean Corpuscular Hemoglobin Concent 31.8 L Red Cell Distribution Width 15.7 H Platelet Count 156 Mean Platelet Volume 11.2 H Neutrophils % 72.3 Lymphocytes % 15.2 Monocytes % 9.0 Eosinophils % 2.9 Basophils % 0.2 Nucleated Red Blood Cells % 0.0 Neutrophils # 3.5 Lymphocytes # 0.7 L Monocytes # 0.4 Eosinophils # 0.1 Basophils # 0.0 Nucleated Red Blood Cells # 0.0 Prothrombin Time 14.7 H Prothrombin Time Ratio 1.1 INR International Normalized Ratio 1.15 Activated Partial Thromboplast Time 34.5 Sodium Level 137 Potassium Level 4.7 Chloride Level 97 Carbon Dioxide Level 31 Anion Gap 14 Blood Urea Nitrogen 44 #H Creatinine 8.72 #H Glucose Level 82 Hemoglobin A1c 4.6 Calcium Level 8.9 Phosphorus Level 7.8 H Magnesium Level 2.3 Total Bilirubin 0.2 Direct Bilirubin 0.00 Indirect Bilirubin 0.2 Aspartate Amino Transf (AST/SGOT) 16 Alanine Aminotransferase (ALT/SGPT) 29 Alkaline Phosphatase 80 Total Protein 5.9 L Albumin 3.5 Globulin 2.40 Albumin/Globulin Ratio 1.45 Triglycerides Level 90 Cholesterol Level 98 L LDL Cholesterol, Calculated 51 HDL Cholesterol 29 Cholesterol/HDL Ratio 3.3 Thyroid Stimulating Hormone (TSH) 1.520 Medications Medications Current Medications Hydralazine HCl (Apresoline) 20 mg Q4H PRN IV ELEVATED SYSTOLIC BP; Start 02/08 at 07:00 Hydralazine HCl (Apresoline) 10 mg Q4H PRN IV ELEVATED SYSTOLIC BP; Start 02/08 at 07:00 Ondansetron HCl (Zofran Inj) 4 mg Q6H PRN IV NAUSEA AND/OR VOMITING; Start at 10:30 Acetaminophen (Tylenol Tab) 650 mg Q6H PRN PO PAIN LEVEL 1-3 OR FEVER; Start at 10:30 Acetaminophen (Tylenol Supp) 650 mg Q6H PRN [place] PAIN LEVEL 1-3 OR FEVER; Start 02/08/17 at 10:30 Acetaminophen/ Hydrocodone Bitart ([place] (5/325)) 1 tab Q6H PRN PO MODERATE PAIN LEVEL 4-6; Start 02/08/17 at 10:30 Docusate Sodium (Colace) 100 mg Q12H PRN PO CONSTIPATION; Start 02/08/17 at 10: 30 Amlodipine Besylate (Norvasc) 10 mg DAILY PO Last administered on 02/09/17 10: 16; Admin Dose 10 MG; Start 02/09/17 at 09:00 Carvedilol (Coreg) 12.5 mg BID PO Last administered on 02/09/17 10:16; Admin Dose 12.5 MG; Start 02/08/17 at 21:00 Benzonatate (Tessalon) 100 mg TID PO Last administered on 02/09/17 13:02; Admin Dose 100 MG; Start 02/08/17 at 13:00 Guaifenesin/ Dextromethorphan (Robitussin Dm Liquid Cup) 10 ml Q4H PRN PO cough ; Start 02/08/17 at 10:30 Doxycycline Hyclate (Vibramycin) 100 mg BID PO Last administered on 02/09/17 10:17; Admin Dose 100 MG; Start 02/09/17 at 09:00 Azithromycin (Zithromax) 250 mg DAILY PO Last administered on 02/09/17 13:02; Admin Dose 250 MG; Start 02/09/17 at 12:30 TEVIN FIORE MD Feb 09, 2017 13:50
--- NOTE | 2017-02-09 18:26 | RADRPT ---
Echocardiogram Report Patient Name: LESLI ALVAREZ Gender: Male Date: 1965 Study Date: 08-Feb-2017 Travel Clerk: Michelle [facility] Location: [id number] Ref. Physician: LAISHA MUSTAFA Quality: Adequate Procedures: Transthoracic echocardiogram with complete 2D, M-Mode, and doppler examination. Indications: Possible CHF. 2D/M Mode Doppler Measurement Value Normal Ranges Measurement Value Normal Ranges LVIDd 2D 6.6 3.5 - 5.6 cm AV Peak Miguel 2.5 m/sec LVIDs 2D 4.2 2.1 - 4.1 cm AV Peak PG 25.0 mmHg FS 2D 36.8 % LVOT Peak Miguel 1.2 m/sec LVPWd 2D 1.1 0.6 - 1.1 cm LVOT Peak PG 6.0 mmHg IVSd 2D 1.1 0.6 - 1.1 cm MV E Peak Miguel 1.5 m/sec IVS/LVPW 2D 1.0 MV A Peak Miguel 1.2 m/sec AoR Diam 2D 3.2 2.0 - 3.7 cm MV E/A 1.3 LA/Ao 2D 1 0 - 1 MV Decel Time 144 msec EDV 2D 284.0 cm3 MV E/A 1.3 ESV 2D 71.5 cm3 LA Dimen 2D 4.1 2.3 - 4.0 cm Findings Left Ventricle: Normal left ventricular systolic function. Normal left ventricular wall thickness. Mild enlargement of left ventricle cavity. Ejection fraction is visually estimated at 55 %. Tissue Doppler/Mitral Doppler indices are consistent with impaired relaxation (Stage I diastolic dysfunction). Right Ventricle: Normal right ventricular size. Normal right ventricular systolic function. Left Atrium: There is mild enlargement of left atrium. Right Atrium: The right atrium is normal in size. Mitral Valve: Mild mitral leaflet calcification. Mild mitral annular calcification. Trace mitral regurgitation. Aortic Valve: Aortic sclerosis without stenosis. Mild to moderate aortic valve regurgitation. Tricuspid Valve: Normal appearance of the tricuspid valve. Unable to obtain RVSP due to minimal presence of tricuspid regurgitation. There is trace tricuspid regurgitation. Pulmonic Valve: Pulmonic valve not well visualized. There is trace pulmonic regurgitation. Pericardium: Trivial pericardial effusion. Aorta: Normal aortic root. IVC: Normal size and no respiratory collapse consistent with elevated right atrial pressure. Conclusions 1.Normal left ventricular systolic function. Normal left ventricular wall thickness. Mild enlargement of left ventricle cavity. Ejection fraction is visually estimated at 55 %. Tissue Doppler/Mitral Doppler indices are consistent with impaired relaxation (Stage I diastolic dysfunction). 2.There is mild enlargement of left atrium. 3.Mild mitral leaflet calcification. Mild mitral annular calcification. Trace mitral regurgitation. 4.Aortic sclerosis without stenosis. Mild to moderate aortic valve regurgitation. 5.Normal appearance of the tricuspid valve. Unable to obtain RVSP due to minimal presence of tricuspid regurgitation. There is trace tricuspid regurgitation. 6.Pulmonic valve not well visualized. There is trace pulmonic regurgitation. 7.Trivial pericardial effusion. Electronically Signed By: Jono Calderon 09-Feb-2017 18:26:12 -0700 Patient Name: LESLI ALVAREZ Study Date: 08-Feb-2017 [id number]
[2017-02-09 19:50] VITALS: BP 158/90; RESP 18
[2017-02-10] VITALS (13 sets, daily range): BP systolic 141–183; BP diastolic 64–94; PULSE 74–88; RESP 18–20
[2017-02-10] MEDS: ALBUTEROL/IPRATROPIUM (NEB) 3 ML AMP HHN SCH ×6 (00:55→20:12)
[2017-02-10 05:13] LABS: BASOPHILS % 0.2 % (0.0-2.0); EOSINOPHILS # 0.2 10^3/ul (0.0-0.5); EOSINOPHILS % 3.1 % (0.0-7.0); HEMOGLOBIN 8.4 g/dl (14.0-18.0); LYMPHOCYTES # 0.9 10^3/ul (0.8-2.9); LYMPHOCYTES % 17.7 % (15.0-51.0); MEAN CORPUSCULAR HEMOGLOBIN 28.4 pg (29.0-33.0); MEAN CORPUSCULAR HGB CONC 32.3 g/dl (32.0-37.0); MEAN CORPUSCULAR VOLUME 87.8 fl (82.0-101.0); MEAN PLATELET VOLUME 10.8 fl (7.4-10.4); MONOCYTE # 0.5 10^3/ul (0.3-0.9); MONOCYTES % 9.2 % (0.0-11.0); NEUTROPHIL # 3.4 10^3/ul (1.6-7.5); NEUTROPHILS % 69.4 % (39.0-77.0); PLATELET COUNT 142 10^3/UL (140-415); RED BLOOD COUNT 2.96 10^6/ul (4.70-6.10); RED CELL DISTRIBUTION WIDTH 15.4 % (11.5-14.5); WHITE BLOOD COUNT 4.9 10^3/ul (4.8-10.8)
[2017-02-10 06:15] LABS: CALCIUM 8.6 mg/dl (8.4-10.2); CREATININE 10.81 mg/dl (0.61-1.24); POTASSIUM 4.6 mmol/L (3.5-5.1)
--- NOTE | 2017-02-10 06:28 | CONS ---
Date/Time of Note Date/Time of Note DATE: 02/10/17 TIME: 06:26 Assessment/Plan Assessment/Plan Chief Complaint/Hosp Course 1) persistent cough without much in way of constitutional symptoms started on vanco/merrem and pt states he is feeling better pt unable to bring up phlegm CT chest shows some atelectasis and mediastinal LN's which were present before the CT chest is much improved c/w 11/2016 get nasal swab for MRSA, send urine for histoplasma Ag check procalcitonin, ESR, CRP, LDH and GABE level doubt pt has mycobacterial, fungal, viral etiology at this time (all were negative in 11/2016) doubt he has a vasculitis, his LORIN and ANCA were neg in 11/2016 non specific pneumonitis is possible but this would require lung bx for diagnosis continue with merrem and change vanco to doxy 02/10 - pt improved but doubt he has pneumonia, perhaps some bronchitis but SOB is likely due to some residual scarring from prior infection in november and diastolic dysfunction merrem was stopped, I agree continue with doxy which will also cover atypicals like azithro d/c azithro 2) ESRD on HD 3) HTN Problems: Consultation Date/Type/Reason Admit Date/Time Feb 08, 2017 at 05:15 Initial Consult Date 02/09/17 Type of Consultation: ID [id number] HR Interval Summary Free Text/Dictation pt feeling better less cough, and SOB no V, D Exam/Review of Systems Vital Signs Vitals Vital Signs Date Time Temp Pulse Resp B/P Pulse Ox O2 Delivery O2 Flow Rate FiO2 02/10/17 04:28 86 18 97 Nasal Cannula 2.0 02/09/17 19:50 98.3 158/90 Intake and Output 02/09/17 02/09/17 02/10/17 15:00 23:00 07:00 Intake Total 50 ml 960 ml 720 ml Balance 50 ml 960 ml 720 ml Exam Constitutional: alert, oriented Head: normocephalic Eyes: nl sclera ENMT: mucosa pink and moist Respiratory: other (L base crackles) Cardiovascular: regular rate and rhythm Gastrointestinal: non-tender, soft Results Result Diagram: 02/10/17 0449 02/09/17 0428 Results 24 hrs Laboratory Tests Test 02/10/17 04:49 White Blood Count 4.9 Red Blood Count 2.96 L Hemoglobin 8.4 L Hematocrit 26.0 L Mean Corpuscular Volume 87.8 Mean Corpuscular Hemoglobin 28.4 L Mean Corpuscular Hemoglobin Concent 32.3 Red Cell Distribution Width 15.4 H Platelet Count 142 Mean Platelet Volume 10.8 H Neutrophils % 69.4 Lymphocytes % 17.7 Monocytes % 9.2 Eosinophils % 3.1 Basophils % 0.2 Nucleated Red Blood Cells % 0.0 Neutrophils # 3.4 Lymphocytes # 0.9 Monocytes # 0.5 Eosinophils # 0.2 Basophils # 0.0 Nucleated Red Blood Cells # 0.0 Medications Medications Current Medications Hydralazine HCl (Apresoline) 20 mg Q4H PRN IV ELEVATED SYSTOLIC BP; Start 02/08 at 07:00 Hydralazine HCl (Apresoline) 10 mg Q4H PRN IV ELEVATED SYSTOLIC BP; Start 02/08 at 07:00 Ondansetron HCl (Zofran Inj) 4 mg Q6H PRN IV NAUSEA AND/OR VOMITING; Start at 10:30 Acetaminophen (Tylenol Tab) 650 mg Q6H PRN PO PAIN LEVEL 1-3 OR FEVER; Start at 10:30 Acetaminophen (Tylenol Supp) 650 mg Q6H PRN [place] PAIN LEVEL 1-3 OR FEVER; Start 02/08/17 at 10:30 Acetaminophen/ Hydrocodone Bitart ([place] (5/325)) 1 tab Q6H PRN PO MODERATE PAIN LEVEL 4-6; Start 02/08/17 at 10:30 Docusate Sodium (Colace) 100 mg Q12H PRN PO CONSTIPATION; Start 02/08/17 at 10: 30 Amlodipine Besylate (Norvasc) 10 mg DAILY PO Last administered on 02/09/17 10: 16; Admin Dose 10 MG; Start 02/09/17 at 09:00 Carvedilol (Coreg) 12.5 mg BID PO Last administered on 02/09/17 21:52; Admin Dose 12.5 MG; Start 02/08/17 at 21:00 Benzonatate (Tessalon) 100 mg TID PO Last administered on 02/09/17 21:52; Admin Dose 100 MG; Start 02/08/17 at 13:00 Guaifenesin/ Dextromethorphan (Robitussin Dm Liquid Cup) 10 ml Q4H PRN PO cough ; Start 02/08/17 at 10:30 Doxycycline Hyclate (Vibramycin) 100 mg BID PO Last administered on 02/09/17 21:52; Admin Dose 100 MG; Start 02/09/17 at 09:00 Azithromycin (Zithromax) 250 mg DAILY PO Last administered on 02/09/17 13:02; Admin Dose 250 MG; Start 02/09/17 at 12:30 JESSICA MILLER MD Feb 10, 2017 06:28
[2017-02-10] MEDS: SEVELAMER CARBONATE 0.8 GM PKT PO SCH ×3 (09:29→18:10)
[2017-02-10] MEDS: DOXYCYCLINE 100 MG TAB PO SCH ×2 (09:30→20:33)
[2017-02-10] MEDS: BENZONATATE 100 MG CAP PO SCH ×3 (09:30→20:33)
[2017-02-10] MEDS: AMLODIPINE 10 MG TAB PO SCH (09:37)
--- NOTE | 2017-02-10 10:59 | PN ---
Date/Time of Note Date/Time of Note DATE: 02/10/17 TIME: 10:46 Assessment/Plan VTE Prophylaxis VTE Prophylaxis Intervention: ambulation, SCD's Lines/Catheters [facility] Urinary Cath still in place: No Assessment/Plan Chief Complaint/Hosp Course 51-year-old male, presented to the emergency room for evaluation of worsening nonproductive cough associated with shortness of breath which has been going on for 3 months without improvement. 1. Persistent nonproductive cough (>3 weeks) likely 2/2 residual from recent pneumonia versus chronic bronchitis. Improved significantly. 02/08/2017: CT chest without contrast. Unchanged appearance of mediastinal lymphadenopathy, likely reactive. -Continue cough suppressants -ID evaluation greatly appreciated-- On Doxycycline- F/u final culture. -Appreciate Pulmonary eval and no need for bronchoscopy. 2. Acute on chronic Hypoxemic respiratory failure, likely 2/2 volume overload with ESRD with diastolic HF. --Fluid removal with hemodialysis. Monitor intake and output closely. -Continue around the clock and PRN bronchodilators 3. Elevated BNP, likely 2/2 poor renal clearance with diastolic HF. echo with preserved EF. 4. End-stage renal disease, on hemodialysis Tuesday, and Tuesday. Access site right upper extremity AV shunt. -Nephrology on board and we will follow recommendations. -Monitor renal function closely. 5. Hypertension, escalated. -Has been started on Diovan per nephro colleagues. Continue CCB/BB. Hoping hemodialysis will bring down blood pressure to desired level. 6. Mineral bone disorder. -Continue home medications. 7. Anemia of chronic kidney disease. -Epogen per nephro. H&H stable. Will monitor. DVT prophylaxis: SCDs Plan: Overall patient with significant improvement in his symptoms. For hemodialysis today. Obtain room air O2. Monitor BP over next 24hrs and if stable , DC home in AM. CASE MANAGEMENT FOR ARRANGING OUTPATIENT F/U WITH . Patient was seen in collaboration with Dr. Baires. Problems: Subjective 24 Hr Interval Summary Free Text/Dictation Overall significant improvement in cough. No fever. Exam/Review of Systems Vital Signs Vitals Vital Signs Date Time Temp Pulse Resp B/P Pulse Ox O2 Delivery O2 Flow Rate FiO2 02/10/17 08:53 97.8 77 20 183/94 90 02/10/17 08:00 Nasal Cannula 2.0 Intake and Output 02/09/17 02/09/17 02/10/17 14:59 22:59 06:59 Intake Total 50 ml 960 ml 720 ml Balance 50 ml 960 ml 720 ml Exam General: Well developed,adequately built, not in any acute distress . HEENT: Normocephalic, Atraumatic, No laceration or hematoma; Eyes: PEERL, Conjunctiva clear, Anicteric sclera Neck: Supple without any lymphadenopathy, nontender, no JVD, no carotid bruits, trachea midline, no thyromegaly Cardiac: S1, S2 auscultated, regular rhythm and rate, no mumurs or gallop Pulmonary: Diminished bibasilar. Normal respiratory effort. GI: Abdomen normal to inspection. Soft, non tender, non- distended, no masses, no rebound tenderness or guarding. Bowel sounds active on all four quadrants Genitourinary: Deferred Extremities: No cyanosis, clubbing, or edema. Pulses [2+] bilaterally. Full ROM on all four extremities. No focal weakness appreciated. Neurologic: Alert to person, place, time, and situation. Affect appropriate, intact sensation. Skin: Clean,dry, and intact. No ecchymosis, no rashes, or lesions Access: Right upper extremity AV shunt. Results Result Diagram: 02/10/1744802/10/179 Results 24 hrs Laboratory Tests Test 02/10/17 04:49 White Blood Count 4.9 Red Blood Count 2.96 L Hemoglobin 8.4 L Hematocrit 26.0 L Mean Corpuscular Volume 87.8 Mean Corpuscular Hemoglobin 28.4 L Mean Corpuscular Hemoglobin Concent 32.3 Red Cell Distribution Width 15.4 H Platelet Count 142 Mean Platelet Volume 10.8 H Neutrophils % 69.4 Lymphocytes % 17.7 Monocytes % 9.2 Eosinophils % 3.1 Basophils % 0.2 Nucleated Red Blood Cells % 0.0 Neutrophils # 3.4 Lymphocytes # 0.9 Monocytes # 0.5 Eosinophils # 0.2 Basophils # 0.0 Nucleated Red Blood Cells # 0.0 Erythrocyte Sedimentation Rate 18.0 H Sodium Level 139 Potassium Level 4.6 Chloride Level 96 L Carbon Dioxide Level 28 Anion Gap 20 H Blood Urea Nitrogen 62 H Creatinine 10.81 #H Glucose Level 92 Calcium Level 8.6 Lactate Dehydrogenase 345 C-Reactive Protein 1.0 H Medications Medications Current Medications Hydralazine HCl (Apresoline) 20 mg Q4H PRN IV ELEVATED SYSTOLIC BP; Start 02/08 at 07:00 Hydralazine HCl (Apresoline) 10 mg Q4H PRN IV ELEVATED SYSTOLIC BP; Start 02/08 at 07:00 Ondansetron HCl (Zofran Inj) 4 mg Q6H PRN IV NAUSEA AND/OR VOMITING; Start at 10:30 Acetaminophen (Tylenol Tab) 650 mg Q6H PRN PO PAIN LEVEL 1-3 OR FEVER; Start at 10:30 Acetaminophen (Tylenol Supp) 650 mg Q6H PRN [place] PAIN LEVEL 1-3 OR FEVER; Start 02/08/17 at 10:30 Acetaminophen/ Hydrocodone Bitart ([place] (5/325)) 1 tab Q6H PRN PO MODERATE PAIN LEVEL 4-6; Start 02/08/17 at 10:30 Docusate Sodium (Colace) 100 mg Q12H PRN PO CONSTIPATION Last administered on 09:35; Admin Dose 100 MG; Start 02/08/17 at 10:30 Amlodipine Besylate (Norvasc) 10 mg DAILY PO Last administered on 02/10/17 09: 37; Admin Dose 10 MG; Start 02/09/17 at 09:00 Carvedilol (Coreg) 12.5 mg BID PO Last administered on 02/10/17 09:35; Admin Dose 12.5 MG; Start 02/08/17 at 21:00 Benzonatate (Tessalon) 100 mg TID PO Last administered on 02/10/17 09:30; Admin Dose 100 MG; Start 02/08/17 at 13:00 Guaifenesin/ Dextromethorphan (Robitussin Dm Liquid Cup) 10 ml Q4H PRN PO cough ; Start 02/08/17 at 10:30 Doxycycline Hyclate (Vibramycin) 100 mg BID PO Last administered on 02/10/17 09:30; Admin Dose 100 MG; Start 02/09/17 at 09:00 LAISHA MUSTAFA NP Feb 10, 2017 10:57
[2017-02-10] MEDS ORDERED: VALSARTAN 160 MG TAB PO ONE (11:00)
--- NOTE | 2017-02-10 11:03 | CONS ---
Date/Time of Note Date/Time of Note DATE: 02/10/17 TIME: 10:59 Assessment/Plan Assessment/Plan Chief Complaint/Hosp Course I. ESRD , on maintenance hemodialysis TTS . He was dialyzed this morning . 2. Cough and SOB . He is feeling better. The pulmonary and infectious disease consultants do not think the patient has pneumonia. More likely he has acute bronchitis and/or some diastolic dysfunction/congestive heart failure. The patient will be weighed today and I will use this as his new dry weight in the dialysis unit. 3. HTN , his blood pressure is elevated I will start him on valsartan. Problems: Consultation Date/Type/Reason Admit Date/Time Feb 08, 2017 at 05:15 Initial Consult Date 02/09/17 Type of Consultation: renal 24 HR Interval Summary Free Text/Dictation He had hemodialysis this morning. 2300 cc of fluid was removed. He is feeling better. Pulmonary and infectious disease consultants do not think the patient has pneumonia. Exam/Review of Systems Vital Signs Vitals Vital Signs Date Time Temp Pulse Resp B/P Pulse Ox O2 Delivery O2 Flow Rate FiO2 02/10/17 08:53 97.8 77 20 183/94 90 02/10/17 08:00 Nasal Cannula 2.0 Intake and Output 02/09/17 02/09/17 02/10/17 15:00 23:00 07:00 Intake Total 50 ml 960 ml 720 ml Balance 50 ml 960 ml 720 ml Exam Constitutional: alert, oriented, well developed ENMT: nl external ears & nose, nl lips & teeth, nl nasal mucosa & septum Respiratory: clear to auscultation, normal air movement Cardiovascular: regular rate and rhythm Gastrointestinal: soft Musculoskeletal: nl extremities to inspection Results Result Diagram: 02/10/17 0449 02/10/17 0449 Results 24 hrs Laboratory Tests Test 02/10/17 04:49 White Blood Count 4.9 Red Blood Count 2.96 L Hemoglobin 8.4 L Hematocrit 26.0 L Mean Corpuscular Volume 87.8 Mean Corpuscular Hemoglobin 28.4 L Mean Corpuscular Hemoglobin Concent 32.3 Red Cell Distribution Width 15.4 H Platelet Count 142 Mean Platelet Volume 10.8 H Neutrophils % 69.4 Lymphocytes % 17.7 Monocytes % 9.2 Eosinophils % 3.1 Basophils % 0.2 Nucleated Red Blood Cells % 0.0 Neutrophils # 3.4 Lymphocytes # 0.9 Monocytes # 0.5 Eosinophils # 0.2 Basophils # 0.0 Nucleated Red Blood Cells # 0.0 Erythrocyte Sedimentation Rate 18.0 H Sodium Level 139 Potassium Level 4.6 Chloride Level 96 L Carbon Dioxide Level 28 Anion Gap 20 H Blood Urea Nitrogen 62 H Creatinine 10.81 #H Glucose Level 92 Calcium Level 8.6 Lactate Dehydrogenase 345 C-Reactive Protein 1.0 H Medications Medications Current Medications Hydralazine HCl (Apresoline) 20 mg Q4H PRN IV ELEVATED SYSTOLIC BP; Start 02/08 at 07:00 Hydralazine HCl (Apresoline) 10 mg Q4H PRN IV ELEVATED SYSTOLIC BP; Start 02/08 at 07:00 Ondansetron HCl (Zofran Inj) 4 mg Q6H PRN IV NAUSEA AND/OR VOMITING; Start at 10:30 Acetaminophen (Tylenol Tab) 650 mg Q6H PRN PO PAIN LEVEL 1-3 OR FEVER; Start at 10:30 Acetaminophen (Tylenol Supp) 650 mg Q6H PRN [place] PAIN LEVEL 1-3 OR FEVER; Start 02/08/17 at 10:30 Acetaminophen/ Hydrocodone Bitart ([place] (5/325)) 1 tab Q6H PRN PO MODERATE PAIN LEVEL 4-6; Start 02/08/17 at 10:30 Docusate Sodium (Colace) 100 mg Q12H PRN PO CONSTIPATION Last administered on 09:35; Admin Dose 100 MG; Start 02/08/17 at 10:30 Amlodipine Besylate (Norvasc) 10 mg DAILY PO Last administered on 02/10/17 09: 37; Admin Dose 10 MG; Start 02/09/17 at 09:00 Carvedilol (Coreg) 12.5 mg BID PO Last administered on 02/10/17 09:35; Admin Dose 12.5 MG; Start 02/08/17 at 21:00 Benzonatate (Tessalon) 100 mg TID PO Last administered on 02/10/17 09:30; Admin Dose 100 MG; Start 02/08/17 at 13:00 Guaifenesin/ Dextromethorphan (Robitussin Dm Liquid Cup) 10 ml Q4H PRN PO cough ; Start 02/08/17 at 10:30 Doxycycline Hyclate (Vibramycin) 100 mg BID PO Last administered on 02/10/17t 09:30; Admin Dose 100 MG; Start 02/09/17 at 09:00 Epoetin Duncan (Epogen (Esrd)) 10,000 units TuTa@17 SC ; Start 02/10/17 at 17:00 ; Status UNV Valsartan (Diovan) 160 mg ONCE ONCE PO ; Start 02/10/17 at 11:00; Stop at 11:01; Status UNV TEVIN FIORE MD Feb 10, 2017 11:03
--- NOTE | 2017-02-10 11:39 | CONS ---
Date/Time of Note Date/Time of Note DATE: 02/10/17 TIME: 11:37 Consult Date/Type/Reason Admit Date/Time Feb 08, 2017 at 05:15 Initial Consult Date 02/09/17 Type of Consultation: Pulmonary Subjective Patient comfortable this morning no new events. Had hemodialysis. Reports no shortness of breath. On room air. Objective Vital Signs Date Time Temp Pulse Resp B/P Pulse Ox O2 Delivery O2 Flow Rate FiO2 02/10/17 09:35 88 149/79 92 Room Air 02/10/17 08:53 97.8 20 02/10/17 08:00 2.0 Intake and Output 02/09/17 02/09/17 02/10/17 15:00 23:00 07:00 Intake Total 50 ml 960 ml 720 ml Balance 50 ml 960 ml 720 ml Exam GENERAL: Well-nourished well-developed and uncomfortable at rest VITAL SIGNS: per chart NECK: Supple. No JVD or lymphadenopathy. CARDIAC EXAM: S1, S2. No added sounds or murmurs. CHEST: clear bilaterally, No added sounds, rales or wheezes ABDOMEN: Soft, nontender. No guarding or rebound. EXTREMITIES: No cyanosis, clubbing or edema. NEUROLOGIC: Generalized weakness. No focal deficits. Results/Medications Result Diagram: 02/10/1744802/10/179 Results 24 hrs Laboratory Tests Test 02/10/17 04:49 White Blood Count 4.9 Red Blood Count 2.96 L Hemoglobin 8.4 L Hematocrit 26.0 L Mean Corpuscular Volume 87.8 Mean Corpuscular Hemoglobin 28.4 L Mean Corpuscular Hemoglobin Concent 32.3 Red Cell Distribution Width 15.4 H Platelet Count 142 Mean Platelet Volume 10.8 H Neutrophils % 69.4 Lymphocytes % 17.7 Monocytes % 9.2 Eosinophils % 3.1 Basophils % 0.2 Nucleated Red Blood Cells % 0.0 Neutrophils # 3.4 Lymphocytes # 0.9 Monocytes # 0.5 Eosinophils # 0.2 Basophils # 0.0 Nucleated Red Blood Cells # 0.0 Erythrocyte Sedimentation Rate 18.0 H Sodium Level 139 Potassium Level 4.6 Chloride Level 96 L Carbon Dioxide Level 28 Anion Gap 20 H Blood Urea Nitrogen 62 H Creatinine 10.81 #H Glucose Level 92 Calcium Level 8.6 Lactate Dehydrogenase 345 C-Reactive Protein 1.0 H Medications Current Medications Hydralazine HCl (Apresoline) 20 mg Q4H PRN IV ELEVATED SYSTOLIC BP; Start 02/08 at 07:00 Hydralazine HCl (Apresoline) 10 mg Q4H PRN IV ELEVATED SYSTOLIC BP; Start 02/08 at 07:00 Ondansetron HCl (Zofran Inj) 4 mg Q6H PRN IV NAUSEA AND/OR VOMITING; Start at 10:30 Acetaminophen (Tylenol Tab) 650 mg Q6H PRN PO PAIN LEVEL 1-3 OR FEVER; Start at 10:30 Acetaminophen (Tylenol Supp) 650 mg Q6H PRN [place] PAIN LEVEL 1-3 OR FEVER; Start 02/08/17 at 10:30 Acetaminophen/ Hydrocodone Bitart ([place] (5/325)) 1 tab Q6H PRN PO MODERATE PAIN LEVEL 4-6; Start 02/08/17 at 10:30 Docusate Sodium (Colace) 100 mg Q12H PRN PO CONSTIPATION Last administered on 09:35; Admin Dose 100 MG; Start 02/08/17 at 10:30 Amlodipine Besylate (Norvasc) 10 mg DAILY PO Last administered on 02/10/17 09: 37; Admin Dose 10 MG; Start 02/09/17 at 09:00 Carvedilol (Coreg) 12.5 mg BID PO Last administered on 02/10/17 09:35; Admin Dose 12.5 MG; Start 02/08/17 at 21:00 Benzonatate (Tessalon) 100 mg TID PO Last administered on 02/10/17 09:30; Admin Dose 100 MG; Start 02/08/17 at 13:00 Guaifenesin/ Dextromethorphan (Robitussin Dm Liquid Cup) 10 ml Q4H PRN PO cough ; Start 02/08/17 at 10:30 Doxycycline Hyclate (Vibramycin) 100 mg BID PO Last administered on 02/10/17 09:30; Admin Dose 100 MG; Start 02/09/17 at 09:00 Epoetin [place] (Epogen (Esrd)) 10,000 units TuThSa@17 SC ; Start 02/10/17 at 17:00 Assessment/Plan Chief Complaint/Hosp Course Assessment 1. End-stage renal failure on hemodialysis 2. Persistent cough with bilateral infiltrates which appear to have resolved on recent CT scan 3. History of essential hypertension Plan 1. Continue hemodialysis with volume removal 2. Consider discharge planning okay from primary standpoint 3. Follow-up with me as an outpatient. Problems: UCHE BOUDREAUX MD[facility] Feb 10, 2017 11:39
--- NOTE | 2017-02-10 15:38 | CONS ---
DATE OF ADMISSION: 02/08/2017 DATE OF CONSULTATION: 02/10/2017 CARDIOLOGY CONSULTATION: REASON FOR CONSULTATION: Shortness of breath, assess for congestive heart failure. REFERRING PHYSICIAN: Rom Ordoñez MD, from the nephrology service. HISTORY OF PRESENT ILLNESS: Mr. Rivera is a 51-year-old male, with history of end-stage renal disease on hemodialysis through right upper arm AV fistula, hypertension, secondary hyperparathyroidism, who has been readmitted with a persistent cough after being treated with antibiotic therapy. The patient's cough and shortness of breath has been going on for approximately 3-months without improvement. Initially upon arrival in the emergency department, temperature 98, blood pressure elevated at 139/95, pulse 91, respiratory rate 20, satting 94 percent on 2 liters. The patient's labs were notable for white count of 5.1, hemoglobin 9.4, platelet count 166. Sodium 137, potassium 4.7, creatinine 8.72, BUN 44, LDL 51, HDL 29. Troponin negative. BNP of 20,100. ABG revealing a pH of 7.387, a PaO2 of 62, pCO2 of 41. The patient underwent a chest CT revealing improved appearance of the lungs, mild left lower lobe atelectasis, unchanged appearance of mediastinal lymphadenopathy, atherosclerosis, cardiomegaly, coronary calcifications, small bilateral pleural effusions, small pericardial effusion, benign cyst in the upper right kidney. The patient's EKG revealed sinus rhythm at a rate of 88 with left axis deviation and borderline anterior R-wave progression concerning for possible prior anterior IN. The patient subsequently admitted to the floor where, since admit, the patient has been undergoing hemodialysis, continued to have cough and shortness of breath. The patient underwent a 2D echo interpreted by myself on 02/09 having an EF of 55 percent with diastolic dysfunction, [id number] aortic regurgitation, trace tricuspid regurgitation, trace pulmonic regurgitation. Patient's has additionally had two negative troponins since admit. The patient denies chest pain. The patient is being followed by the nephrology and infectious disease services and is initiated on doxycycline at this time and receiving bronchodilators. The patient's blood pressure continues to be labile and elevated. The patient taking at this time Norvasc 10 mg daily and carvedilol 12.5 mg p.o. b.i.d., the same medication the patient had been admitted on. PAST MEDICAL HISTORY: As above in HPI. MEDICATIONS: Medications currently in hospital: 1. Epogen. 2. Norvasc 10 mg daily. 3. Doxycycline 100 mg b.i.d. 4. Carvedilol 12.5 mg p.o. b.i.d. Benzoate. 5. DuoNeb. 6. Hydralazine p.r.n. 7. Colace p.r.n. 8. Tylenol p.r.n. ALLERGIES: NO KNOWN DRUG ALLERGIES. SOCIAL HISTORY: No tobacco, EtOH or illicit drug use. FAMILY HISTORY: No history of sudden cardiac or early CAD. REVIEW OF SYSTEMS: As above in HPI. CONSTITUTIONAL: No fevers. PULMONARY: Positive for shortness of breath with a cough. GASTROINTESTINAL: No vomiting. GENITOURINARY: No hematuria. MUSCULOSKELETAL: Degenerative joint disease. PSYCHIATRIC: The patient has depression. NEUROLOGIC: No documented CVA. ENDOCRINE: No documented history of diabetes mellitus. RENAL: End stage renal disease. CARDIOVASCULAR: No chest pain. Positive shortness of breath. PHYSICAL EXAMINATION: VITAL SIGNS: Temperature of 97.8, blood pressure 149/79, pulse 88, satting 93 percent on 2 liters. GENERAL: The patient is alert, awake, complaining of mild shortness of breath and cough. NECK: JVP approximately 9 cm water. LUNGS: Fair air movement throughout. HEART: Regular rate and rhythm. Normal S1, S2. A 1/6 systolic murmur. Nondisplaced PMI. ABDOMEN: Positive bowel sounds. Soft. EXTREMITIES: No pitting edema, 1+ pulses, bilateral posterior tibial. LABORATORY AND DIAGNOSTIC DATA: As above in HPI with most recent today, sodium 139, potassium 4.6, creatinine 10.8, BUN of 62. White count 4.9, hemoglobin 8.4, platelet count 142. INR 1.1. Imaging studies as above in HPI. No further imaging studies are reviewed. Findings from ECG as above in HPI. No further electrocardiograms are reviewed at this time. IMPRESSION: 1. Shortness of breath/congestive heart failure. 2. Increased BNP, assess for congestive heart failure. 3. Hypertension, uncontrolled. 4. Abnormal electrocardiogram, assess for acute coronary syndrome. 5. Diastolic dysfunction by echo this admit. 6. End stage renal disease on hemodialysis. 7. Upper respiratory infection, cough. 8. Anemia. RECOMMENDATIONS: 1. At this time would complete patient's rule out for myocardial infarction. Follow up troponin. 2. Continue patient's Norvasc and agree with initiation of ARB by treating supervisor blood donor recruiters. 3. Would consider changing patient's carvedilol to a beta 1 selective beta farhan so as not to provoke any possible bronchospasm leading to shortness of breath. 4. Continue patient's antibiotics and bronchodilators. Follow up on culture data. 5. Check a fasting lipid panel for general stratification. 6. We will consider further workup with stress testing in this patient, which can be scheduled as an outpatient. Thank you for allowing me to take part in the care of this patient. I will continue to follow him closely with you. Dictated By: Jono Calderon MD /[email or web address]/hernandez /Document#: [id number] CC: Rom Ordoñez MD;*End*
[2017-02-10 16:11] LABS: CREATINE KINASE 50 IU/L (23-200)
[2017-02-10 16:57] LABS: CK-MB 1.32 ng/ml (0.0-2.4); TROPONIN-I < 0.012 ng/ml (0.00-0.12)
[2017-02-10] MEDS: EPOETIN 10000 UNITS/1 ML INJ (ESRD) SC SCH (18:06)
[2017-02-10] MEDS: VALSARTAN 80 MG TAB PO SCH (20:34)
[2017-02-10] MEDS: METOPROLOL 50 MG TAB PO SCH (20:36)
[2017-02-11 00:05] VITALS: BP 172/96; PULSE 81
[2017-02-11] MEDS: ALBUTEROL/IPRATROPIUM (NEB) 3 ML AMP HHN SCH ×6 (00:32→20:06)
[2017-02-11 01:02] VITALS: BP 160/88; PULSE 82
[2017-02-11 05:00] VITALS: BP 156/94; PULSE 81
[2017-02-11 05:17] LABS: CHOL/HDL RATIO 2.9 RATIO
[2017-02-11 07:54] VITALS: BP 147/88; RESP 20
[2017-02-11] MEDS: VALSARTAN 80 MG TAB PO SCH ×2 (08:40→20:27)
[2017-02-11] MEDS: DOXYCYCLINE 100 MG TAB PO SCH ×2 (08:40→20:26)
[2017-02-11] MEDS: SEVELAMER CARBONATE 0.8 GM PKT PO SCH ×3 (08:40→17:57)
[2017-02-11] MEDS: BENZONATATE 100 MG CAP PO SCH ×3 (08:41→20:27)
[2017-02-11] MEDS: AMLODIPINE 10 MG TAB PO SCH (08:41)
[2017-02-11] MEDS: METOPROLOL 50 MG TAB PO SCH ×2 (08:41→20:26)
--- NOTE | 2017-02-11 09:55 | CONS ---
Date/Time of Note Date/Time of Note DATE: 02/11/17 TIME: 09:52 Assessment/Plan Assessment/Plan Chief Complaint/Hosp Course 1) persistent cough without much in way of constitutional symptoms started on vanco/merrem and pt states he is feeling better pt unable to bring up phlegm CT chest shows some atelectasis and mediastinal LN's which were present before the CT chest is much improved c/w 11/2016 get nasal swab for MRSA, send urine for histoplasma Ag check procalcitonin, ESR, CRP, LDH and GABE level doubt pt has mycobacterial, fungal, viral etiology at this time (all were negative in 11/2016) doubt he has a vasculitis, his LORIN and ANCA were neg in 11/2016 non specific pneumonitis is possible but this would require lung bx for diagnosis continue with merrem and change vanco to doxy 02/10 - pt improved but doubt he has pneumonia, perhaps some bronchitis but SOB is likely due to some residual scarring from prior infection in november and diastolic dysfunction merrem was stopped, I agree continue with doxy which will also cover atypicals like azithro d/c azithro 02/11 - no change on doxycycline for a 10 day course 2) ESRD on HD 3) HTN 4) GPR in blood is a diptheroid 02/11- this is a skin contaminant and no treatment is needed for it repeat blood cx are NGTD Problems: Consultation Date/Type/Reason Admit Date/Time Feb 08, 2017 at 05:15 Initial Consult Date 02/09/17 Type of Consultation: ID [id number] HR Interval Summary Free Text/Dictation pt has slight cough pt is concerned that when he sleeps his O2 sats go into the 80's no N, V, D Exam/Review of Systems Vital Signs Vitals Vital Signs Date Time Temp Pulse Resp B/P Pulse Ox O2 Delivery O2 Flow Rate FiO2 02/11/17 09:28 82 18 96 Nasal Cannula 2.0 02/11/17 07:54 98.0 147/88 02/10/17 16:19 21 Intake and Output 02/10/17 02/10/17 02/11/17 15:00 23:00 07:00 Intake Total 200 ml 920 ml 450 ml Output Total 2500 ml Balance -2300 ml 920 ml 450 ml Exam Constitutional: alert, oriented Eyes: nl sclera ENMT: mucosa pink and moist Respiratory: clear to auscultation Cardiovascular: regular rate and rhythm Gastrointestinal: non-tender, soft Results Result Diagram: 02/10/179 02/10/179 Results 24 hrs Laboratory Tests Test 02/10/17 15:28 02/11/17 04:31 Creatine Kinase 50 Creatine Kinase Index 2.6 Creatinine Kinase MB (Mass) 1.32 Troponin I < 0.012 Triglycerides Level 96 Cholesterol Level 92 L LDL Cholesterol, Calculated 42 HDL Cholesterol 31 Cholesterol/HDL Ratio 2.9 Medications Medications Current Medications Hydralazine HCl (Apresoline) 20 mg Q4H PRN IV ELEVATED SYSTOLIC BP; Start 02/08 at 07:00 Hydralazine HCl (Apresoline) 10 mg Q4H PRN IV ELEVATED SYSTOLIC BP Last administered on 02/11/17 00:03; Admin Dose 10 MG; Start 02/08/17 at 07:00 Ondansetron HCl (Zofran Inj) 4 mg Q6H PRN IV NAUSEA AND/OR VOMITING; Start at 10:30 Acetaminophen (Tylenol Tab) 650 mg Q6H PRN PO PAIN LEVEL 1-3 OR FEVER; Start at 10:30 Acetaminophen (Tylenol Supp) 650 mg Q6H PRN [place] PAIN LEVEL 1-3 OR FEVER; Start 02/08/17 at 10:30 Acetaminophen/ Hydrocodone Bitart ([place] (5/325)) 1 tab Q6H PRN PO MODERATE PAIN LEVEL 4-6; Start 02/08/17 at 10:30 Docusate Sodium (Colace) 100 mg Q12H PRN PO CONSTIPATION Last administered on 09:35; Admin Dose 100 MG; Start 02/08/17 at 10:30 Amlodipine Besylate (Norvasc) 10 mg DAILY PO Last administered on 02/11/17 08: 41; Admin Dose 10 MG; Start 02/09/17 at 09:00 Benzonatate (Tessalon) 100 mg TID PO Last administered on 02/11/17 08:41; Admin Dose 100 MG; Start 02/08/17 at 13:00 Guaifenesin/ Dextromethorphan (Robitussin Dm Liquid Cup) 10 ml Q4H PRN PO cough ; Start 02/08/17 at 10:30 Doxycycline Hyclate (Vibramycin) 100 mg BID PO Last administered on 02/11/17 08:40; Admin Dose 100 MG; Start 02/09/17 at 09:00 Epoetin Duncan (Epogen (Esrd)) 10,000 units TuThSa@17 SC Last administered on 18:06; Admin Dose 10,000 UNITS; Start 02/10/17 at 17:00 Valsartan (Diovan) 80 mg BID PO Last administered on 02/11/17 08:40; Admin Dose 80 MG; Start 02/10/17 at 21:00 Metoprolol Tartrate (Lopressor) 50 mg BID PO Last administered on 02/11/17 08: 41; Admin Dose 50 MG; Start 02/10/17 at 21:00 JESSICA MILLER MD Feb 11, 2017 09:55
--- NOTE | 2017-02-11 12:37 | CONS ---
Date/Time of Note Date/Time of Note DATE: 02/11/17 TIME: 12:30 Assessment/Plan Assessment/Plan Chief Complaint/Hosp Course I. ESRD , on maintenance hemodialysis TTS . He was dialyzed yesterday . 2. Cough and SOB . He is feeling better. The pulmonary and infectious disease consultants do not think the patient has pneumonia. More likely he has acute bronchitis and/or some diastolic dysfunction/congestive heart failure. He says that his oxygen saturation decreases below 90 % at night . I will check CXR today , weigh him and walk him while monitoring his oxygen saturation . 3. HTN , his blood pressure is elevated I will start him on valsartan. Problems: Consultation Date/Type/Reason Admit Date/Time Feb 08, 2017 at 05:15 Initial Consult Date 02/09/17 Type of Consultation: ID 24 HR Interval Summary Free Text/Dictation He is concerned that his oxygen saturation decreases below 90 % at night . He has no SOB now . Exam/Review of Systems Vital Signs Vitals Vital Signs Date Time Temp Pulse Resp B/P Pulse Ox O2 Delivery O2 Flow Rate FiO2 02/11/17 09:28 82 18 96 Nasal Cannula 2.0 02/11/17 07:54 98.0 147/88 02/10/17 16:19 21 Intake and Output 02/10/17 02/10/17 02/11/17 15:00 23:00 07:00 Intake Total 200 ml 920 ml 450 ml Output Total 2500 ml Balance -2300 ml 920 ml 450 ml Exam Constitutional: alert, oriented, well developed Respiratory: clear to auscultation, normal air movement Cardiovascular: regular rate and rhythm Gastrointestinal: non-tender, soft Musculoskeletal: nl extremities to inspection Results Result Diagram: 02/10/17 0449 02/10/17 0449 Results 24 hrs Laboratory Tests Test 02/10/17 15:28 02/11/17 04:31 Creatine Kinase 50 Creatine Kinase Index 2.6 Creatinine Kinase MB (Mass) 1.32 Troponin I < 0.012 Triglycerides Level 96 Cholesterol Level 92 L LDL Cholesterol, Calculated 42 HDL Cholesterol 31 Cholesterol/HDL Ratio 2.9 Medications Medications Current Medications Hydralazine HCl (Apresoline) 20 mg Q4H PRN IV ELEVATED SYSTOLIC BP; Start 02/08 at 07:00 Hydralazine HCl (Apresoline) 10 mg Q4H PRN IV ELEVATED SYSTOLIC BP Last administered on 02/11/17 00:03; Admin Dose 10 MG; Start 02/08/17 at 07:00 Ondansetron HCl (Zofran Inj) 4 mg Q6H PRN IV NAUSEA AND/OR VOMITING; Start at 10:30 Acetaminophen (Tylenol Tab) 650 mg Q6H PRN PO PAIN LEVEL 1-3 OR FEVER; Start at 10:30 Acetaminophen (Tylenol Supp) 650 mg Q6H PRN [place] PAIN LEVEL 1-3 OR FEVER; Start 02/08/17 at 10:30 Acetaminophen/ Hydrocodone Bitart ([place] (5/325)) 1 tab Q6H PRN PO MODERATE PAIN LEVEL 4-6; Start 02/08/17 at 10:30 Docusate Sodium (Colace) 100 mg Q12H PRN PO CONSTIPATION Last administered on 09:35; Admin Dose 100 MG; Start 02/08/17 at 10:30 Amlodipine Besylate (Norvasc) 10 mg DAILY PO Last administered on 02/11/17 08: 41; Admin Dose 10 MG; Start 02/09/17 at 09:00 Benzonatate (Tessalon) 100 mg TID PO Last administered on 02/11/17 08:41; Admin Dose 100 MG; Start 02/08/17 at 13:00 Guaifenesin/ Dextromethorphan (Robitussin Dm Liquid Cup) 10 ml Q4H PRN PO cough ; Start 02/08/17 at 10:30 Doxycycline Hyclate (Vibramycin) 100 mg BID PO Last administered on 02/11/17 08:40; Admin Dose 100 MG; Start 02/09/17 at 09:00 Epoetin Duncan (Epogen (Esrd)) 10,000 units TuThSa@17 SC Last administered on 18:06; Admin Dose 10,000 UNITS; Start 02/10/17 at 17:00 Valsartan (Diovan) 80 mg BID PO Last administered on 02/11/17 08:40; Admin Dose 80 MG; Start 02/10/17 at 21:00 Metoprolol Tartrate (Lopressor) 50 mg BID PO Last administered on 02/11/17 08: 41; Admin Dose 50 MG; Start 02/10/17 at 21:00 TEVIN FIORE MD Feb 11, 2017 12:37
--- NOTE | 2017-02-11 12:38 | PN ---
Date/Time of Note Date/Time of Note DATE: 02/11/17 TIME: 12:31 Assessment/Plan VTE Prophylaxis VTE Prophylaxis Intervention: ambulation Lines/Catheters IV [facility] [place] [facility] Urinary Cath still in place: No Assessment/Plan Chief Complaint/Hosp Course 51-year-old male, presented to the emergency room for evaluation of worsening nonproductive cough associated with shortness of breath which has been going on for 3 months without improvement. 1. Persistent nonproductive cough (>3 weeks) likely 2/2 residual from recent pneumonia versus acute on chronic bronchitis. Improved significantly. 02/08/2017: CT chest without contrast. Unchanged appearance of mediastinal lymphadenopathy, likely reactive. -Continue cough suppressants -ID evaluation greatly appreciated-- On Doxycycline- F/u final culture. -Appreciate Pulmonary eval and no need for bronchoscopy. 2. Acute on chronic Hypoxemic respiratory failure, likely 2/2 volume overload with ESRD /diastolic HF vs possible obesity-induced hypoventilation. --Fluid removal with hemodialysis. Monitor intake and output closely. -Continue around the clock and PRN bronchodilators 3. Elevated BNP, likely 2/2 poor renal clearance with diastolic HF. echo with preserved EF. 4. End-stage renal disease, on hemodialysis Tuesday, and Tuesday. Access site right upper extremity AV shunt. -Nephrology on board and we will follow recommendations. -Monitor renal function closely. 5. Hypertension, escalated. now stable -on Diovan/ CCB/BB. -Appreciate cards eval 6. Mineral bone disorder. -Continue home medications. 7. Anemia of chronic kidney disease. -Epogen per nephro. H&H stable. Will monitor. 8. Possible Sleep apnea. --Recommend outpatient sleep study 9.Obesity. -weight reduction advised. DVT prophylaxis: SCDs Plan: Overall patient with significant improvement in his symptoms. Patient still needs O2 at night. Obtain AM ABG on room air and room air o2 sat with ambulation. Recommend outpatient sleep study. For hemodialysis today. Obtain room air O2. DC planning in AM. CASE MANAGEMENT FOR ARRANGING OUTPATIENT F/U WITH . Patient was seen in collaboration with Dr. Baires. Problems: Subjective 24 Hr Interval Summary Free Text/Dictation No acute distress.Feeling improved. Exam/Review of Systems Vital Signs Vitals Vital Signs Date Time Temp Pulse Resp B/P Pulse Ox O2 Delivery O2 Flow Rate FiO2 02/11/17 09:28 82 18 96 Nasal Cannula 2.0 02/11/17 07:54 98.0 147/88 02/10/17 16:19 21 Intake and Output 02/10/17 02/10/17 02/11/17 15:00 23:00 07:00 Intake Total 200 ml 920 ml 450 ml Output Total 2500 ml Balance -2300 ml 920 ml 450 ml Exam General: Well developed,adequately built, not in any acute distress . HEENT: Normocephalic, Atraumatic, No laceration or hematoma; Eyes: PEERL, Conjunctiva clear, Anicteric sclera Neck: Supple without any lymphadenopathy, nontender, no JVD, no carotid bruits, trachea midline, no thyromegaly Cardiac: S1, S2 auscultated, regular rhythm and rate, no mumurs or gallop Pulmonary: Diminished bibasilar. Normal respiratory effort. GI: Abdomen normal to inspection. Soft, non tender, non- distended, no masses, no rebound tenderness or guarding. Bowel sounds active on all four quadrants Genitourinary: Deferred Extremities: No cyanosis, clubbing, or edema. Pulses [2+] bilaterally. Full ROM on all four extremities. No focal weakness appreciated. Neurologic: Alert to person, place, time, and situation. Affect appropriate, intact sensation. Skin: Clean,dry, and intact. No ecchymosis, no rashes, or lesions Access: Right upper extremity AV shunt. Results Result Diagram: 02/10/17 0449 02/10/179 Results 24 hrs Laboratory Tests Test 02/10/17 15:28 02/11/17 04:31 Creatine Kinase 50 Creatine Kinase Index 2.6 Creatinine Kinase MB (Mass) 1.32 Troponin I < 0.012 Triglycerides Level 96 Cholesterol Level 92 L LDL Cholesterol, Calculated 42 HDL Cholesterol 31 Cholesterol/HDL Ratio 2.9 Medications Medications Current Medications Hydralazine HCl (Apresoline) 20 mg Q4H PRN IV ELEVATED SYSTOLIC BP; Start 02/08 at 07:00 Hydralazine HCl (Apresoline) 10 mg Q4H PRN IV ELEVATED SYSTOLIC BP Last administered on 02/11/17t 00:03; Admin Dose 10 MG; Start 02/08/17 at 07:00 Ondansetron HCl (Zofran Inj) 4 mg Q6H PRN IV NAUSEA AND/OR VOMITING; Start at 10:30 Acetaminophen (Tylenol Tab) 650 mg Q6H PRN PO PAIN LEVEL 1-3 OR FEVER; Start at 10:30 Acetaminophen (Tylenol Supp) 650 mg Q6H PRN [place] PAIN LEVEL 1-3 OR FEVER; Start 02/08/17 at 10:30 Acetaminophen/ Hydrocodone Bitart ([place] (5/325)) 1 tab Q6H PRN PO MODERATE PAIN LEVEL 4-6; Start 02/08/17 at 10:30 Docusate Sodium (Colace) 100 mg Q12H PRN PO CONSTIPATION Last administered on 09:35; Admin Dose 100 MG; Start 02/08/17 at 10:30 Amlodipine Besylate (Norvasc) 10 mg DAILY PO Last administered on 02/11/17 08: 41; Admin Dose 10 MG; Start 02/09/17 at 09:00 Benzonatate (Tessalon) 100 mg TID PO Last administered on 02/11/17 08:41; Admin Dose 100 MG; Start 02/08/17 at 13:00 Guaifenesin/ Dextromethorphan (Robitussin Dm Liquid Cup) 10 ml Q4H PRN PO cough ; Start 02/08/17 at 10:30 Doxycycline Hyclate (Vibramycin) 100 mg BID PO Last administered on 02/11/17 08:40; Admin Dose 100 MG; Start 02/09/17 at 09:00 Epoetin Duncan (Epogen (Esrd)) 10,000 units TuThSa@17 SC Last administered on 18:06; Admin Dose 10,000 UNITS; Start 02/10/17 at 17:00 Valsartan (Diovan) 80 mg BID PO Last administered on 02/11/17 08:40; Admin Dose 80 MG; Start 02/10/17 at 21:00 Metoprolol Tartrate (Lopressor) 50 mg BID PO Last administered on 02/11/17 08: 41; Admin Dose 50 MG; Start 02/10/17 at 21:00 LAISHA MUSTAFA NP Feb 11, 2017 12:38
--- NOTE | 2017-02-11 14:49 | CONS ---
Date/Time of Note Date/Time of Note DATE: 02/11/17 TIME: 14:43 Assessment/Plan Assessment/Plan Chief Complaint/Hosp Course IMPRESSION: 1. Shortness of breath/congestive heart failure-diastolic acute on chronic by echo this admit-negative trop x 3 2. Increased BNP, assess for congestive heart failure. 3. Hypertension, uncontrolled. and remains thus 4. Abnormal electrocardiogram, assess for acute coronary syndrome. 5. Diastolic dysfunction by echo this admit. 6. End stage renal disease on hemodialysis. 7. Upper respiratory infection, cough. 8. Anemia. 9. Pericardial effusion-not significant by echo 10. Dyslipidemia-low HDL Recc: -Tele -Continue norvasc/BB and will increase diovan -HD for volume removal -Continue abx's and f/u cx data -Given card for f/u and possible outpatrient stress testing Problems: Consultation Date/Type/Reason Admit Date/Time Feb 08, 2017 at 05:15 Initial Consult Date 02/09/17 Type of Consultation: cardiology Reason for Consultation sob/CHF Referring Provider: TEVIN FIORE MD Exam/Review of Systems Vital Signs Vitals Vital Signs Date Time Temp Pulse Resp B/P Pulse Ox O2 Delivery O2 Flow Rate FiO2 02/11/17 13:37 2.0 02/11/17 13:37 85 20 96 Nasal Cannula 02/11/17 07:54 98.0 147/88 02/10/17 16:19 21 Intake and Output 02/10/17 02/10/17 02/11/17 15:00 23:00 07:00 Intake Total 200 ml 920 ml 450 ml Output Total 2500 ml Balance -2300 ml 920 ml 450 ml Exam Review of Systems: CONSTITUTIONAL: No fevers, chills. PULMONARY: No sob/mild cough CARDIOVASCULAR: No chest pain/palpitations GASTROINTESTINAL: No nausea/vomiting. GENITOURINARY: No hematuria/dysuria. MUSCULOSKELETAL: No myagias/arthalgias. PSYCHIATRIC: The patient denies depression. NEUROLOGIC: No weakness Constitutional: alert, oriented Psych: no complaints ENMT: mucosa pink and moist Neck: jvd (9 cm water), supple Respiratory: diminished breath sounds (at bases/B) Cardiovascular: regular rate and rhythm Gastrointestinal: non-tender, soft Musculoskeletal: muscle tone (normal) Extremities: edema (none) Neurological: other (No focal deficiits) Results Result Diagram: 02/10/17 0449 02/10/17 0449 Results 24 hrs Laboratory Tests Test 02/10/17 15:28 02/11/17 04:31 Creatine Kinase 50 Creatine Kinase Index 2.6 Creatinine Kinase MB (Mass) 1.32 Troponin I < 0.012 Triglycerides Level 96 Cholesterol Level 92 L LDL Cholesterol, Calculated 42 HDL Cholesterol 31 Cholesterol/HDL Ratio 2.9 Medications Medications Current Medications Hydralazine HCl (Apresoline) 20 mg Q4H PRN IV ELEVATED SYSTOLIC BP; Start 02/08 at 07:00 Hydralazine HCl (Apresoline) 10 mg Q4H PRN IV ELEVATED SYSTOLIC BP Last administered on 02/11/17 00:03; Admin Dose 10 MG; Start 02/08/17 at 07:00 Ondansetron HCl (Zofran Inj) 4 mg Q6H PRN IV NAUSEA AND/OR VOMITING; Start at 10:30 Acetaminophen (Tylenol Tab) 650 mg Q6H PRN PO PAIN LEVEL 1-3 OR FEVER; Start at 10:30 Acetaminophen (Tylenol Supp) 650 mg Q6H PRN [place] PAIN LEVEL 1-3 OR FEVER; Start 02/08/17 at 10:30 Acetaminophen/ Hydrocodone Bitart ([place] (5/325)) 1 tab Q6H PRN PO MODERATE PAIN LEVEL 4-6; Start 02/08/17 at 10:30 Docusate Sodium (Colace) 100 mg Q12H PRN PO CONSTIPATION Last administered on 09:35; Admin Dose 100 MG; Start 02/08/17 at 10:30 Amlodipine Besylate (Norvasc) 10 mg DAILY PO Last administered on 02/11/17 08: 41; Admin Dose 10 MG; Start 02/09/17 at 09:00 Benzonatate (Tessalon) 100 mg TID PO Last administered on 02/11/17 13:54; Admin Dose 100 MG; Start 02/08/17 at 13:00 Guaifenesin/ Dextromethorphan (Robitussin Dm Liquid Cup) 10 ml Q4H PRN PO cough ; Start 02/08/17 at 10:30 Doxycycline Hyclate (Vibramycin) 100 mg BID PO Last administered on 02/11/17 08:40; Admin Dose 100 MG; Start 02/09/17 at 09:00 Epoetin Duncan (Epogen (Esrd)) 10,000 units TuThSa@17 SC Last administered on 18:06; Admin Dose 10,000 UNITS; Start 02/10/17 at 17:00 Valsartan (Diovan) 80 mg BID PO Last administered on 02/11/17 08:40; Admin Dose 80 MG; Start 02/10/17 at 21:00 Metoprolol Tartrate (Lopressor) 50 mg BID PO Last administered on 02/11/17 08: 41; Admin Dose 50 MG; Start 02/10/17 at 21:00 AMBERLY SANTILLAN Feb 11, 2017 14:49
--- NOTE | 2017-02-11 16:36 | RADRPT ---
Vent Rate: 81 bpm RR Interval: 0 msec VT Interval: 164 msec QRS Duration: 106 msec QT Interval: 398 msec QTC Interval: 462 msec P-R-T Hunter: 55 - 64 - 71 degrees Normal sinus rhythm Possible Left atrial enlargement Incomplete right bundle branch block Possible Anterior infarct , age undetermined Abnormal ECG Electronically Signed By: Imtiaz Landry [id number]
--- NOTE | 2017-02-11 16:48 | CONS ---
Date/Time of Note Date/Time of Note DATE: 02/11/17 TIME: 16:48 Consult Date/Type/Reason Admit Date/Time Feb 08, 2017 at 05:15 Initial Consult Date 02/09/17 Type of Consultation: Pulm Ordering Provider: TEVIN FIORE MD Subjective Comfortable. Objective Vital Signs Date Time Temp Pulse Resp B/P Pulse Ox O2 Delivery O2 Flow Rate FiO2 02/11/17 14:30 92 Room Air 02/11/17 13:37 2.0 02/11/17 13:37 85 20 02/11/17 07:54 98.0 147/88 02/10/17 16:19 21 Intake and Output 02/10/17 02/10/17 02/11/17 15:00 23:00 07:00 Intake Total 200 ml 920 ml 450 ml Output Total 2500 ml Balance -2300 ml 920 ml 450 ml Exam GENERAL: Well-nourished well-developed and uncomfortable at rest VITAL SIGNS: per chart NECK: Supple. No JVD or lymphadenopathy. CARDIAC EXAM: S1, S2. No added sounds or murmurs. CHEST: clear bilaterally, No added sounds, rales or wheezes ABDOMEN: Soft, nontender. No guarding or rebound. EXTREMITIES: No cyanosis, clubbing or edema. NEUROLOGIC: Generalized weakness. No focal deficits. Results/Medications Result Diagram: 02/10/1744802/10/17448 Results 24 hrs Laboratory Tests Test 02/11/17 04:31 Triglycerides Level 96 Cholesterol Level 92 L LDL Cholesterol, Calculated 42 HDL Cholesterol 31 Cholesterol/HDL Ratio 2.9 Medications Current Medications Hydralazine HCl (Apresoline) 20 mg Q4H PRN IV ELEVATED SYSTOLIC BP; Start 02/08 at 07:00 Hydralazine HCl (Apresoline) 10 mg Q4H PRN IV ELEVATED SYSTOLIC BP Last administered on 02/11/17t 00:03; Admin Dose 10 MG; Start 02/08/17 at 07:00 Ondansetron HCl (Zofran Inj) 4 mg Q6H PRN IV NAUSEA AND/OR VOMITING; Start at 10:30 Acetaminophen (Tylenol Tab) 650 mg Q6H PRN PO PAIN LEVEL 1-3 OR FEVER; Start at 10:30 Acetaminophen (Tylenol Supp) 650 mg Q6H PRN [place] PAIN LEVEL 1-3 OR FEVER; Start 02/08/17 at 10:30 Acetaminophen/ Hydrocodone Bitart ([place] (5/325)) 1 tab Q6H PRN PO MODERATE PAIN LEVEL 4-6; Start 02/08/17 at 10:30 Docusate Sodium (Colace) 100 mg Q12H PRN PO CONSTIPATION Last administered on 09:35; Admin Dose 100 MG; Start 02/08/17 at 10:30 Amlodipine Besylate (Norvasc) 10 mg DAILY PO Last administered on 02/11/17 08: 41; Admin Dose 10 MG; Start 02/09/17 at 09:00 Benzonatate (Tessalon) 100 mg TID PO Last administered on 02/11/17 13:54; Admin Dose 100 MG; Start 02/08/17 at 13:00 Guaifenesin/ Dextromethorphan (Robitussin Dm Liquid Cup) 10 ml Q4H PRN PO cough ; Start 02/08/17 at 10:30 Doxycycline Hyclate (Vibramycin) 100 mg BID PO Last administered on 02/11/17 08:40; Admin Dose 100 MG; Start 02/09/17 at 09:00 Epoetin Duncan (Epogen (Esrd)) 10,000 units TuThSa@17 SC Last administered on 18:06; Admin Dose 10,000 UNITS; Start 02/10/17 at 17:00 Metoprolol Tartrate (Lopressor) 50 mg BID PO Last administered on 02/11/17 08: 41; Admin Dose 50 MG; Start 02/10/17 at 21:00 Valsartan (Diovan) 160 mg BID PO ; Start 02/11/17 at 21:00 Assessment/Plan Chief Complaint/Hosp Course Assessment 1. End-stage renal failure on hemodialysis 2. Persistent cough with bilateral infiltrates which appear to have resolved on recent CT scan 3. History of essential hypertension Plan 1. Continue hemodialysis with volume removal 2. Consider discharge planning okay from primary standpoint 3. Follow-up with me as an outpatient. dc planning ok from pulm stand point. Problems: UCHE BOUDREAUX MD, [facility] Feb 11, 2017 16:48
--- NOTE | 2017-02-11 17:23 | RADRPT ---
PROCEDURE: XR Chest. CLINICAL INDICATION: Shortness of breath. TECHNIQUE: Two views. Frontal and lateral. COMPARISON: 02/08/2017. FINDINGS: There is left mid and lower lung zone linear atelectasis or scarring, unchanged. The lungs are other zeng clear. The heart is enlarged. There is calcification in the aorta consistent with atherosclerosis. There is no pleural effusion. There is no pneumothorax. IMPRESSION: 1. Unchanged appearance of the lungs. 2. Cardiomegaly and atherosclerosis. RPTAT: QQ .Caleb Saldana MD, MD Date Time Electronically viewed and signed by .Caleb Saldana MD, MD on 02/11/2017 17:23 .R/
[2017-02-11 19:49] VITALS: BP 155/91; RESP 20
[2017-02-11 23:34] VITALS: BP 154/86; RESP 20
[2017-02-12] VITALS (8 sets, daily range): BP systolic 152–195; BP diastolic 82–97; PULSE 79–86; RESP 18
[2017-02-12] MEDS: ALBUTEROL/IPRATROPIUM (NEB) 3 ML AMP HHN SCH ×6 (01:04→20:12)
[2017-02-12 05:57] LABS: AADO2 Arterial 81.2 mmHg (7.0-24.0); Allen Test ACCEPTAB; Arterial Base Excess -0.2 mmol/L (-3.0-3); Arterial COHb 0.3 % (0.0-3.0); Arterial Fraction of Oxyhgb 80.3 % (93.0-99.0); Arterial HCO3 26.2 mmol/L (22.0-26.0); Arterial MetHb 0.4 % (0.0-1.5); Arterial Total Hemglobin 9.7 g/dl (12.0-18.0); MODE NASAL CANNULA
[2017-02-12] MEDS: DOXYCYCLINE 100 MG TAB PO SCH ×2 (08:36→20:32)
[2017-02-12] MEDS: SEVELAMER CARBONATE 0.8 GM PKT PO SCH ×3 (08:36→17:52)
[2017-02-12] MEDS: VALSARTAN 80 MG TAB PO SCH ×2 (08:37→20:32)
[2017-02-12] MEDS: METOPROLOL 50 MG TAB PO SCH (08:37)
[2017-02-12] MEDS: BENZONATATE 100 MG CAP PO SCH ×3 (08:37→20:32)
[2017-02-12] MEDS: AMLODIPINE 10 MG TAB PO SCH (08:37)
--- NOTE | 2017-02-12 09:20 | CONS ---
Date/Time of Note Date/Time of Note DATE: 02/12/17 TIME: 09:12 Assessment/Plan Assessment/Plan Problems: (1) Hypoxemia Comment: mostly with sleep and strongly suspect sleep apnea. Will require evaluation as outpatient. Should be checked on room air before discharge (2) Atelectasis Comment: on guanef and may need steroids if persists (3) Pleural effusion Comment: moderate ai and pleural effusions-for dialysis today. (4) Sleep apnea Comment: needs evaluation as outpatient Qualifiers: Sleep apnea type: unspecified type Qualified Code: G47.30 - Sleep apnea, unspecified type (5) HTN (hypertension) (6) Anemia in chronic kidney disease Additional Assessment/Plan on procrit Consultation Date/Type/Reason Admit Date/Time Feb 08, 2017 at 05:15 Initial Consult Date 02/09/17 Type of Consultation: renal Referring Provider: TEVIN FIORE MD 24 HR Interval Summary Free Text/Dictation 2 months of recurrent cough with chest ct showing mild pleural effusions and atelectasis. Goes into coughing jags. He drops his oxygen at night and notes snoring. Strong concern for sleep apnea. Detailed Summary Eyes: no complaints Respiratory: cough Cardiovascular: other (no pleuritic pain and no sob. ) Skin: no complaints Neurologic: no complaints Exam/Review of Systems Vital Signs Vitals Vital Signs Date Time Temp Pulse Resp B/P Pulse Ox O2 Delivery O2 Flow Rate FiO2 02/12/17 08:50 84 18 94 21 02/12/17 07:55 97.8 158/85 02/12/17 05:28 Nasal Cannula 3.0 Intake and Output 02/11/17 02/11/17 02/12/17 15:00 23:00 07:00 Intake Total 800 ml 500 ml Output Total 450 ml Balance 800 ml 50 ml Exam Psych: no complaints Respiratory: clear to auscultation Cardiovascular: regular rate and rhythm Gastrointestinal: soft Neurological: [employer] II-XII intact, nl mental status Results Result Diagram: 02/10/179 02/10/179 Results 24 hrs Laboratory Tests Test 02/12/17 05:00 Blood Gas Specimen Source Blood arterial Arterial Blood Date Drawn 02/12/2017 5:45:25 AM Arterial Blood pH (Temp corrected) 7.322 L Arterial Blood pCO2 (Temp correct) 51.8 H Arterial Blood pO2 (Temp corrected) 50.1 *L Arterial Blood HCO3 26.2 H Arterial Blood Base Excess -0.2 Arterial Blood Oxygen Saturation 80.9 L [place] Test ACCEPTAB Arterial Blood Gas Puncture Site Right Radial Arterial Blood Carboxyhemoglobin 0.3 Arterial Blood Methemoglobin 0.4 Blood Gas A-a O2 Differential 81.2 H Oxyhemoglobin Percent 80.3 L Total Hemoglobin 9.7 L Blood Gas Temperature 37.0 Blood Gas Actual Respiration Rate 20 Blood Gas Modality NASAL CANNULA FiO2 27.0 Blood Gas Critical Value Read Back Arturo MINOR RN Blood Gas Notified Whom Blood Gas Notified Time 02/12/2017 5:54:23 AM Medications Medications Current Medications Hydralazine HCl (Apresoline) 20 mg Q4H PRN IV ELEVATED SYSTOLIC BP; Start 02/08 at 07:00 Hydralazine HCl (Apresoline) 10 mg Q4H PRN IV ELEVATED SYSTOLIC BP Last administered on 02/11/17 00:03; Admin Dose 10 MG; Start 02/08/17 at 07:00 Ondansetron HCl (Zofran Inj) 4 mg Q6H PRN IV NAUSEA AND/OR VOMITING; Start at 10:30 Acetaminophen (Tylenol Tab) 650 mg Q6H PRN PO PAIN LEVEL 1-3 OR FEVER; Start at 10:30 Acetaminophen (Tylenol Supp) 650 mg Q6H PRN [place] PAIN LEVEL 1-3 OR FEVER; Start 02/08/17 at 10:30 Acetaminophen/ Hydrocodone Bitart ([place] (5/325)) 1 tab Q6H PRN PO MODERATE PAIN LEVEL 4-6; Start 02/08/17 at 10:30 Docusate Sodium (Colace) 100 mg Q12H PRN PO CONSTIPATION Last administered on 09:35; Admin Dose 100 MG; Start 02/08/17 at 10:30 Amlodipine Besylate (Norvasc) 10 mg DAILY PO Last administered on 02/12/17 08: 37; Admin Dose 10 MG; Start 02/09/17 at 09:00 Benzonatate (Tessalon) 100 mg TID PO Last administered on 02/12/17 08:37; Admin Dose 100 MG; Start 02/08/17 at 13:00 Guaifenesin/ Dextromethorphan (Robitussin Dm Liquid Cup) 10 ml Q4H PRN PO cough ; Start 02/08/17 at 10:30 Doxycycline Hyclate (Vibramycin) 100 mg BID PO Last administered on 02/12/17 08:36; Admin Dose 100 MG; Start 02/09/17 at 09:00 Epoetin Duncan (Epogen (Esrd)) 10,000 units TuThSa@17 SC Last administered on 18:06; Admin Dose 10,000 UNITS; Start 02/10/17 at 17:00 Metoprolol Tartrate (Lopressor) 50 mg BID PO Last administered on 02/12/17 08: 37; Admin Dose 50 MG; Start 02/10/17 at 21:00 Valsartan (Diovan) 160 mg BID PO Last administered on 02/12/17 08:37; Admin Dose 160 MG; Start 02/11/17 at 21:00 AVRIL MCLAIN MD Feb 12, 2017 09:20
--- NOTE | 2017-02-12 11:58 | CONS ---
Date/Time of Note Date/Time of Note DATE: 02/12/17 TIME: 11:55 Assessment/Plan Assessment/Plan Additional Assessment/Plan Plan and recommendations; 1. Patient admitted with shortness of breath due to pulmonary edema with significant clinical and radiological improvement. 2. End-stage renal disease, on hemodialysis. 3. History of hypertension. 4. Mild anemia and thrombocytopenia. 5. Likely underlying sleep apnea. Continue current treatment. Consider discharge. Patient will need to have a polysomnogram done on outpatient basis. Consultation Date/Type/Reason Admit Date/Time Feb 08, 2017 at 05:15 Initial Consult Date 02/09/17 Type of Consultation: Pulmonary Referring Provider: TEVIN FIORE MD 24 HR Interval Summary Free Text/Dictation Condition is continually improving. Shortness of breath has markedly resolved. Denies any chest pain, coughing, sputum production or chest pain. General exam; aged male, awake alert, currently in no distress. Exam/Review of Systems Vital Signs Vitals Vital Signs Date Time Temp Pulse Resp B/P Pulse Ox O2 Delivery O2 Flow Rate FiO2 02/12/17 08:50 84 18 94 21 02/12/17 07:55 97.8 158/85 02/12/17 05:28 Nasal Cannula 3.0 Intake and Output 02/11/17 02/11/17 02/12/17 15:00 23:00 07:00 Intake Total 800 ml 500 ml Output Total 450 ml Balance 800 ml 50 ml Exam HEENT exam; supple neck, positive JVD. No lymphadenopathy. Midline trachea. No thyromegaly. Pharynx is clear. Positive JVD. Patient has fair dentition. Chest exam; clear to auscultation. S1-S2 audible, no murmurs. Regular rhythm. Abdomen exam; soft, nontender. No organomegaly. Bowel sounds audible. Extremity exam; no peripheral edema. There is an AV shunt in the right arm. 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 Results Result Diagram: 02/10/17 0449 02/10/179 Results 24 hrs Laboratory Tests Test 02/12/17 05:00 Blood Gas Specimen Source Blood arterial Arterial Blood Date Drawn 02/12/2017 5:45:25 AM Arterial Blood pH (Temp corrected) 7.322 L Arterial Blood pCO2 (Temp correct) 51.8 H Arterial Blood pO2 (Temp corrected) 50.1 *L Arterial Blood HCO3 26.2 H Arterial Blood Base Excess -0.2 Arterial Blood Oxygen Saturation 80.9 L [place] Test ACCEPTAB Arterial Blood Gas Puncture Site Right Radial Arterial Blood Carboxyhemoglobin 0.3 Arterial Blood Methemoglobin 0.4 Blood Gas A-a O2 Differential 81.2 H Oxyhemoglobin Percent 80.3 L Total Hemoglobin 9.7 L Blood Gas Temperature 37.0 Blood Gas Actual Respiration Rate 20 Blood Gas Modality NASAL CANNULA FiO2 27.0 Blood Gas Critical Value Read Back Arturo MINOR RN Blood Gas Notified Whom Blood Gas Notified Time 02/12/2017 5:54:23 AM Medications Medications Current Medications Hydralazine HCl (Apresoline) 20 mg Q4H PRN IV ELEVATED SYSTOLIC BP; Start 02/08 at 07:00 Hydralazine HCl (Apresoline) 10 mg Q4H PRN IV ELEVATED SYSTOLIC BP Last administered on 02/11/17 00:03; Admin Dose 10 MG; Start 02/08/17 at 07:00 Ondansetron HCl (Zofran Inj) 4 mg Q6H PRN IV NAUSEA AND/OR VOMITING; Start at 10:30 Acetaminophen (Tylenol Tab) 650 mg Q6H PRN PO PAIN LEVEL 1-3 OR FEVER; Start at 10:30 Acetaminophen (Tylenol Supp) 650 mg Q6H PRN [place] PAIN LEVEL 1-3 OR FEVER; Start 02/08/17 at 10:30 Acetaminophen/ Hydrocodone Bitart ([place] (5/325)) 1 tab Q6H PRN PO MODERATE PAIN LEVEL 4-6; Start 02/08/17 at 10:30 Docusate Sodium (Colace) 100 mg Q12H PRN PO CONSTIPATION Last administered on 09:35; Admin Dose 100 MG; Start 02/08/17 at 10:30 Amlodipine Besylate (Norvasc) 10 mg DAILY PO Last administered on 02/12/17 08: 37; Admin Dose 10 MG; Start 02/09/17 at 09:00 Benzonatate (Tessalon) 100 mg TID PO Last administered on 02/12/17 08:37; Admin Dose 100 MG; Start 02/08/17 at 13:00 Guaifenesin/ Dextromethorphan (Robitussin Dm Liquid Cup) 10 ml Q4H PRN PO cough ; Start 02/08/17 at 10:30 Doxycycline Hyclate (Vibramycin) 100 mg BID PO Last administered on 02/12/17 08:36; Admin Dose 100 MG; Start 02/09/17 at 09:00 Epoetin Duncan (Epogen (Esrd)) 10,000 units TuThSa@17 SC Last administered on 18:06; Admin Dose 10,000 UNITS; Start 02/10/17 at 17:00 Metoprolol Tartrate (Lopressor) 50 mg BID PO Last administered on 02/12/17 08: 37; Admin Dose 50 MG; Start 02/10/17 at 21:00 Valsartan (Diovan) 160 mg BID PO Last administered on 02/12/17 08:37; Admin Dose 160 MG; Start 02/11/17 at 21:00 KESHA TREVIÑO Feb 12, 2017 11:57
[2017-02-12] MEDS ORDERED: PROMETHAZINE/CODEINE 5ML CUP PO PRN (13:30)
--- NOTE | 2017-02-12 15:19 | CONS ---
Date/Time of Note Date/Time of Note DATE: 02/12/17 TIME: 15:15 Assessment/Plan Assessment/Plan Additional Assessment/Plan 1. Shortness of breath/congestive heart failure-diastolic acute on chronic by echo this admit 2. Increased BNP. 3. Hypertension, uncontrolled: increase metoprolol 4. Abnormal electrocardiogram, 5. Diastolic dysfunction by echo this admit. 6. End stage renal disease on hemodialysis. 7. Upper respiratory infection, cough.: better 8. Anemia. 9. Pericardial effusion-not significant by echo 10. Dyslipidemia-low HDL Recc: About to start HD for volume removal Increase Metoprolol Consultation Date/Type/Reason Admit Date/Time Feb 08, 2017 at 05:15 Initial Consult Date 02/09/17 Type of Consultation: Pulmonary Referring Provider: TEVIN FIORE MD 24 HR Interval Summary Free Text/Dictation ROS: No fever, no chills, no nausea, no vomiting, no diarrhea/constipation No recent weight changes No edema, no palpitations No chest pain, no PND, no SOB No dizziness, blurred vision No thirst, no heat or cold intolerance Exam/Review of Systems Vital Signs Vitals Vital Signs Date Time Temp Pulse Resp B/P Pulse Ox O2 Delivery O2 Flow Rate FiO2 02/12/17 12:55 79 20 94 21 02/12/17 07:55 97.8 158/85 02/12/17 05:28 Nasal Cannula 3.0 Intake and Output 02/11/17 02/11/17 02/12/17 15:00 23:00 07:00 Intake Total 800 ml 500 ml Output Total 450 ml Balance 800 ml 50 ml Exam General: WN/WD HEENT: Unicetric/atraumatic/ no assymetry NECK: JVD not elevated, no thyromegaly, carotids revealed normal upstrokes Lymph: no lymphadenopathy HEART: regular with no S3, I/ systolic murmur at apex LUNGS: clear ABD: soft, NT, ND, +BS, no organomegaly Neuro: no deficit SKIN: no leisons EXT: no edema Results Result Diagram: 02/10/17 0449 02/10/179 Results 24 hrs Laboratory Tests Test 02/12/17 05:00 Blood Gas Specimen Source Blood arterial Arterial Blood Date Drawn 02/12/2017 5:45:25 AM Arterial Blood pH (Temp corrected) 7.322 L Arterial Blood pCO2 (Temp correct) 51.8 H Arterial Blood pO2 (Temp corrected) 50.1 *L Arterial Blood HCO3 26.2 H Arterial Blood Base Excess -0.2 Arterial Blood Oxygen Saturation 80.9 L [place] Test ACCEPTAB Arterial Blood Gas Puncture Site Right Radial Arterial Blood Carboxyhemoglobin 0.3 Arterial Blood Methemoglobin 0.4 Blood Gas A-a O2 Differential 81.2 H Oxyhemoglobin Percent 80.3 L Total Hemoglobin 9.7 L Blood Gas Temperature 37.0 Blood Gas Actual Respiration Rate 20 Blood Gas Modality NASAL CANNULA FiO2 27.0 Blood Gas Critical Value Read Back Arturo MINOR RN Blood Gas Notified Whom Blood Gas Notified Time 02/12/2017 5:54:23 AM Medications Medications Current Medications Hydralazine HCl (Apresoline) 20 mg Q4H PRN IV ELEVATED SYSTOLIC BP; Start 02/08 at 07:00 Hydralazine HCl (Apresoline) 10 mg Q4H PRN IV ELEVATED SYSTOLIC BP Last administered on 02/11/17 00:03; Admin Dose 10 MG; Start 02/08/17 at 07:00 Ondansetron HCl (Zofran Inj) 4 mg Q6H PRN IV NAUSEA AND/OR VOMITING; Start at 10:30 Acetaminophen (Tylenol Tab) 650 mg Q6H PRN PO PAIN LEVEL 1-3 OR FEVER; Start at 10:30 Acetaminophen (Tylenol Supp) 650 mg Q6H PRN [place] PAIN LEVEL 1-3 OR FEVER; Start 02/08/17 at 10:30 Acetaminophen/ Hydrocodone Bitart ([place] (5/325)) 1 tab Q6H PRN PO MODERATE PAIN LEVEL 4-6; Start 02/08/17 at 10:30 Docusate Sodium (Colace) 100 mg Q12H PRN PO CONSTIPATION Last administered on 09:35; Admin Dose 100 MG; Start 02/08/17 at 10:30 Amlodipine Besylate (Norvasc) 10 mg DAILY PO Last administered on 02/12/17 08: 37; Admin Dose 10 MG; Start 02/09/17 at 09:00 Benzonatate (Tessalon) 100 mg TID PO Last administered on 02/12/17 12:45; Admin Dose 100 MG; Start 02/08/17 at 13:00 Doxycycline Hyclate (Vibramycin) 100 mg BID PO Last administered on 02/12/17 08:36; Admin Dose 100 MG; Start 02/09/17 at 09:00 Epoetin Duncan (Epogen (Esrd)) 10,000 units TuThSa@17 SC Last administered on 18:06; Admin Dose 10,000 UNITS; Start 02/10/17 at 17:00 Metoprolol Tartrate (Lopressor) 50 mg BID PO Last administered on 02/12/17 08: 37; Admin Dose 50 MG; Start 02/10/17 at 21:00 Valsartan (Diovan) 160 mg BID PO Last administered on 02/12/17 08:37; Admin Dose 160 MG; Start 02/11/17 at 21:00 Promethazine HCl/ Codeine (Phenergan/ Codeine) 10 ml Q4H PRN PO COUGH; Start at 13:30 MICKIE PEREIRA MD Feb 12, 2017 15:19
[2017-02-12] MEDS: EPOETIN 10000 UNITS/1 ML INJ (ESRD) SC SCH (17:53)
--- NOTE | 2017-02-12 18:19 | PN ---
Date/Time of Note Date/Time of Note DATE: 02/12/17 TIME: 18:18 Assessment/Plan VTE Prophylaxis VTE Prophylaxis Intervention: SCD's Lines/Catheters IV Catheter Type (from [place]): Saline Lock Urinary Cath still in place: No Assessment/Plan Assessment/Plan 1. Persistent nonproductive cough (>3 weeks) likely 2/2 residual from recent pneumonia versus acute on chronic bronchitis. Improved significantly. 02/08/2017: CT chest without contrast. Unchanged appearance of mediastinal lymphadenopathy, likely reactive. -Continue cough suppressants -ID evaluation greatly appreciated-- On Doxycycline- F/u final culture. -Appreciate Pulmonary eval and no need for bronchoscopy. 2. Acute on chronic Hypoxemic respiratory failure, likely 2/2 volume overload with ESRD /diastolic HF vs possible obesity-induced hypoventilation. --Fluid removal with hemodialysis. Monitor intake and output closely. -Continue around the clock and PRN bronchodilators 3. Elevated BNP, likely 2/2 poor renal clearance with diastolic HF. echo with preserved EF. 4. End-stage renal disease, on hemodialysis Tuesday, and Tuesday. Access site right upper extremity AV shunt. -Nephrology on board and we will follow recommendations. -Monitor renal function closely. 5. Hypertension, escalated. now stable -on Diovan/ CCB/BB. -Appreciate cards eval 6. Mineral bone disorder. -Continue home medications. 7. Anemia of chronic kidney disease. -Epogen per nephro. H&H stable. Will monitor. 8. Possible Sleep apnea. --Recommend outpatient sleep study 9.Obesity. -weight reduction advised. DVT prophylaxis: SCDs Plan: Overall patient with significant improvement in his symptoms. Still c/o cough, paln for HD today, AM CXR ordered, if improvement then plan for d/c home on Tuesday Subjective 24 Hr Interval Summary Free Text/Dictation c/o cough, BP stable,afebrile, Exam/Review of Systems Vital Signs Vitals Vital Signs Date Time Temp Pulse Resp B/P Pulse Ox O2 Delivery O2 Flow Rate FiO2 02/12/17 16:30 85 02/12/17 16:14 20 95 21 02/12/17 07:55 97.8 158/85 02/12/17 05:28 Nasal Cannula 3.0 Intake and Output 02/11/17 02/11/17 02/12/17 15:00 23:00 07:00 Intake Total 800 ml 500 ml Output Total 450 ml Balance 800 ml 50 ml Results Result Diagram: 02/10/17 0449 02/10/17 0449 Results 24 hrs Laboratory Tests Test 02/12/17 05:00 Blood Gas Specimen Source Blood arterial Arterial Blood Date Drawn 02/12/2017 5:45:25 AM Arterial Blood pH (Temp corrected) 7.322 L Arterial Blood pCO2 (Temp correct) 51.8 H Arterial Blood pO2 (Temp corrected) 50.1 *L Arterial Blood HCO3 26.2 H Arterial Blood Base Excess -0.2 Arterial Blood Oxygen Saturation 80.9 L [place] Test ACCEPTAB Arterial Blood Gas Puncture Site Right Radial Arterial Blood Carboxyhemoglobin 0.3 Arterial Blood Methemoglobin 0.4 Blood Gas A-a O2 Differential 81.2 H Oxyhemoglobin Percent 80.3 L Total Hemoglobin 9.7 L Blood Gas Temperature 37.0 Blood Gas Actual Respiration Rate 20 Blood Gas Modality NASAL CANNULA FiO2 27.0 Blood Gas Critical Value Read Back Arturo MINOR RN Blood Gas Notified Whom Blood Gas Notified Time 02/12/2017 5:54:23 AM Medications Medications Current Medications Hydralazine HCl (Apresoline) 20 mg Q4H PRN IV ELEVATED SYSTOLIC BP Last administered on 02/12/17 16:00; Admin Dose 20 MG; Start 02/08/17 at 07:00 Hydralazine HCl (Apresoline) 10 mg Q4H PRN IV ELEVATED SYSTOLIC BP Last administered on 02/11/17 00:03; Admin Dose 10 MG; Start 02/08/17 at 07:00 Ondansetron HCl (Zofran Inj) 4 mg Q6H PRN IV NAUSEA AND/OR VOMITING; Start at 10:30 Acetaminophen (Tylenol Tab) 650 mg Q6H PRN PO PAIN LEVEL 1-3 OR FEVER; Start at 10:30 Acetaminophen (Tylenol Supp) 650 mg Q6H PRN [place] PAIN LEVEL 1-3 OR FEVER; Start 02/08/17 at 10:30 Acetaminophen/ Hydrocodone Bitart ([place] (5/325)) 1 tab Q6H PRN PO MODERATE PAIN LEVEL 4-6; Start 02/08/17 at 10:30 Docusate Sodium (Colace) 100 mg Q12H PRN PO CONSTIPATION Last administered on 09:35; Admin Dose 100 MG; Start 02/08/17 at 10:30 Amlodipine Besylate (Norvasc) 10 mg DAILY PO Last administered on 02/12/17 08: 37; Admin Dose 10 MG; Start 02/09/17 at 09:00 Benzonatate (Tessalon) 100 mg TID PO Last administered on 02/12/17 12:45; Admin Dose 100 MG; Start 02/08/17 at 13:00 Doxycycline Hyclate (Vibramycin) 100 mg BID PO Last administered on 02/12/17 08:36; Admin Dose 100 MG; Start 02/09/17 at 09:00 Epoetin [place] ([facility] (Esrd)) [facility] [place] Last administered on 17:53; Admin Dose 10,000 UNITS; Start 02/10/17 at 17:00 Valsartan (Diovan) 160 mg BID PO Last administered on 02/12/17 08:37; Admin Dose 160 MG; Start 02/11/17 at 21:00 Promethazine HCl/ Codeine (Phenergan/ Codeine) 10 ml Q4H PRN PO COUGH; Start at 13:30 Metoprolol Tartrate (Lopressor) 75 mg BID PO ; Start 02/12/17 at 21:00 JAKE YAÑEZ MD Feb 12, 2017 18:19
[2017-02-12] MEDS: METOPROLOL 25 MG TAB PO SCH (20:32)
[2017-02-13] MEDS: ALBUTEROL/IPRATROPIUM (NEB) 3 ML AMP HHN SCH ×6 (00:36→21:06)
[2017-02-13 02:24] VITALS: BP 158/81; RESP 16
[2017-02-13 05:26] LABS: BASOPHILS % 0.4 % (0.0-2.0); EOSINOPHILS # 0.1 10^3/ul (0.0-0.5); EOSINOPHILS % 2.1 % (0.0-7.0); HEMATOCRIT 27.9 % (42.0-52.0); HEMOGLOBIN 8.9 g/dl (14.0-18.0); LYMPHOCYTES # 0.8 10^3/ul (0.8-2.9); LYMPHOCYTES % 14.7 % (15.0-51.0); MEAN CORPUSCULAR HEMOGLOBIN 28.1 pg (29.0-33.0); MEAN CORPUSCULAR HGB CONC 31.9 g/dl (32.0-37.0); MEAN PLATELET VOLUME 11.3 fl (7.4-10.4); MONOCYTE # 0.5 10^3/ul (0.3-0.9); MONOCYTES % 9.1 % (0.0-11.0); NEUTROPHIL # 3.8 10^3/ul (1.6-7.5); NEUTROPHILS % 73.1 % (39.0-77.0); PLATELET COUNT 174 10^3/UL (140-415); RED BLOOD COUNT 3.17 10^6/ul (4.70-6.10); RED CELL DISTRIBUTION WIDTH 15.7 % (11.5-14.5); WHITE BLOOD COUNT 5.2 10^3/ul (4.8-10.8)
[2017-02-13 05:53] LABS: ALBUMIN 3.7 g/dl (3.3-4.9); ALBUMIN/GLOBULIN RATIO 1.27; BILIRUBIN,INDIRECT 0.1 mg/dl (0-1.1); BILIRUBIN,TOTAL 0.1 mg/dl (0.2-1.3); CALCIUM 9.1 mg/dl (8.4-10.2); CREATININE 8.89 mg/dl (0.61-1.24); POTASSIUM 4.7 mmol/L (3.5-5.1); TOTAL PROTEIN 6.6 g/dl (6.1-8.1)
[2017-02-13 05:55] LABS: INR 1.16; PROTIME 14.9 Sec (12.2-14.2); PT RATIO 1.2
[2017-02-13 05:56] LABS: PARTIAL THROMBOPLASTIN TIME 40.2 Sec (25.0-35.0)
[2017-02-13 07:46] VITALS: BP 163/95; RESP 22
[2017-02-13] MEDS: SEVELAMER CARBONATE 0.8 GM PKT PO SCH ×3 (08:53→18:19)
[2017-02-13] MEDS: BENZONATATE 100 MG CAP PO SCH ×3 (08:53→20:45)
[2017-02-13] MEDS: METOPROLOL 25 MG TAB PO SCH (08:53)
[2017-02-13] MEDS: DOXYCYCLINE 100 MG TAB PO SCH ×2 (08:53→20:44)
[2017-02-13] MEDS: VALSARTAN 80 MG TAB PO SCH ×2 (08:54→20:45)
[2017-02-13] MEDS: AMLODIPINE 10 MG TAB PO SCH (08:54)
--- NOTE | 2017-02-13 10:51 | CONS ---
Date/Time of Note Date/Time of Note DATE: 02/13/17 TIME: 10:42 Assessment/Plan Assessment/Plan Problems: (1) Hypoxemia Comment: Certainly with sleep apnea, chf tho better with 2.5 liters of fluid removed. Will need tp promptly assess apnea as outpatient through either Pulmonary or Dr. Haque. If ambulates without significant hypoxemia.could be discharged. If not needs full pfts and dlco. (2) Atelectasis (3) Pleural effusion Consultation Date/Type/Reason Admit Date/Time Feb 08, 2017 at 05:15 Initial Consult Date 02/09/17 Type of Consultation: Renal Referring Provider: TEVIN FIORE MD 24 HR Interval Summary Free Text/Dictation Explained at length sleep apnea is what most likely is accounting for his night time hypoxemia. Discussed with family who was translating. he additionally has component of chf addressed yesterday with 2.5 liters of fluid removed with dialysis. He is ambulatroy and feels better and is coughing less. Subjective hx not possible: pt non-verbal Exam/Review of Systems Vital Signs Vitals Vital Signs Date Time Temp Pulse Resp B/P Pulse Ox O2 Delivery O2 Flow Rate FiO2 02/13/17 09:48 92 20 88 21 02/13/17 07:46 98.4 163/95 02/13/17 04:37 Nasal Cannula 2.0 Intake and Output 02/12/17 02/12/17 02/13/17 15:00 23:00 07:00 Intake Total 500 ml 500 ml Output Total 3000 ml 400 ml Balance -2500 ml 100 ml Exam Constitutional: alert Eyes: nl conjunctiva ENMT: other (giant tongue abuts soft palate!) Neck: supple Respiratory: clear to auscultation Cardiovascular: regular rate and rhythm Results Result Diagram: 02/13/1742602/13/17426 Results 24 hrs Laboratory Tests Test 02/13/17 04:27 White Blood Count 5.2 Red Blood Count 3.17 L Hemoglobin 8.9 L Hematocrit 27.9 L Mean Corpuscular Volume 88.0 Mean Corpuscular Hemoglobin 28.1 L Mean Corpuscular Hemoglobin Concent 31.9 L Red Cell Distribution Width 15.7 H Platelet Count 174 # Mean Platelet Volume 11.3 H Neutrophils % 73.1 Lymphocytes % 14.7 L Monocytes % 9.1 Eosinophils % 2.1 Basophils % 0.4 Nucleated Red Blood Cells % 0.0 Neutrophils # 3.8 Lymphocytes # 0.8 Monocytes # 0.5 Eosinophils # 0.1 Basophils # 0.0 Nucleated Red Blood Cells # 0.0 Prothrombin Time 14.9 H Prothrombin Time Ratio 1.2 INR International Normalized Ratio 1.16 Activated Partial Thromboplast Time 40.2 H Sodium Level 139 Potassium Level 4.7 Chloride Level 99 Carbon Dioxide Level 30 Anion Gap 15 Blood Urea Nitrogen 43 H Creatinine 8.89 H Glucose Level 88 Calcium Level 9.1 Total Bilirubin 0.1 L Direct Bilirubin 0.00 Indirect Bilirubin 0.1 Aspartate Amino Transf (AST/SGOT) 16 Alanine Aminotransferase (ALT/SGPT) 31 Alkaline Phosphatase 86 Total Protein 6.6 Albumin 3.7 Globulin 2.90 Albumin/Globulin Ratio 1.27 Medications Medications Current Medications Hydralazine HCl (Apresoline) 20 mg Q4H PRN IV ELEVATED SYSTOLIC BP Last administered on 02/12/17 16:00; Admin Dose 20 MG; Start 02/08/17 at 07:00 Hydralazine HCl (Apresoline) 10 mg Q4H PRN IV ELEVATED SYSTOLIC BP Last administered on 02/11/17 00:03; Admin Dose 10 MG; Start 02/08/17 at 07:00 Ondansetron HCl (Zofran Inj) 4 mg Q6H PRN IV NAUSEA AND/OR VOMITING; Start at 10:30 Acetaminophen (Tylenol Tab) 650 mg Q6H PRN PO PAIN LEVEL 1-3 OR FEVER; Start at 10:30 Acetaminophen (Tylenol Supp) 650 mg Q6H PRN [place] PAIN LEVEL 1-3 OR FEVER; Start 02/08/17 at 10:30 Acetaminophen/ Hydrocodone Bitart ([place] (5/325)) 1 tab Q6H PRN PO MODERATE PAIN LEVEL 4-6; Start 02/08/17 at 10:30 Docusate Sodium (Colace) 100 mg Q12H PRN PO CONSTIPATION Last administered on 09:35; Admin Dose 100 MG; Start 02/08/17 at 10:30 Amlodipine Besylate (Norvasc) 10 mg DAILY PO Last administered on 02/13/17 08: 54; Admin Dose 10 MG; Start 02/09/17 at 09:00 Benzonatate (Tessalon) 100 mg TID PO Last administered on 02/13/17 08:53; Admin Dose 100 MG; Start 02/08/17 at 13:00 Doxycycline Hyclate (Vibramycin) 100 mg BID PO Last administered on 02/13/17 08:53; Admin Dose 100 MG; Start 02/09/17 at 09:00 Epoetin [place] (Epogen (Esrd)) 10,000 units TuThSa@17 [place] Last administered on 17:53; Admin Dose 10,000 UNITS; Start 02/10/17 at 17:00 Valsartan (Diovan) 160 mg BID PO Last administered on 02/13/17 08:54; Admin Dose 160 MG; Start 02/11/17 at 21:00 Promethazine HCl/ Codeine (Phenergan/ Codeine) 10 ml Q4H PRN PO COUGH; Start at 13:30 Metoprolol Tartrate (Lopressor) 75 mg BID PO Last administered on 02/13/17 08: 53; Admin Dose 75 MG; Start 02/12/17 at 21:00 AVRIL MCLAIN MD Feb 13, 2017 10:51
--- NOTE | 2017-02-13 11:42 | CONS ---
Date/Time of Note Date/Time of Note DATE: 02/13/17 TIME: 11:39 Assessment/Plan Assessment/Plan Additional Assessment/Plan Assessment and recommendations; 1. Patient admitted with CHF exacerbation with marked interval improvement. 2. Anemia. 3. Chronic renal failure, on hemodialysis. 4. Anemia and thrombocytopenia. 5. Hypertension. 6. Likely underlying sleep apnea. Continue current treatment. Patient will need to have a sleep study done on outpatient basis. Patient also needs to be evaluated for nocturnal home oxygen requirements. Consultation Date/Type/Reason Admit Date/Time Feb 08, 2017 at 05:15 Initial Consult Date 02/09/17 Type of Consultation: Pulmonary/critical care Referring Provider: TEVIN FIORE MD 24 HR Interval Summary Free Text/Dictation Patient condition stable. Denies any shortness of breath, chest pain. General exam; middle-aged male, currently in no distress, awake and alert. Exam/Review of Systems Vital Signs Vitals Vital Signs Date Time Temp Pulse Resp B/P Pulse Ox O2 Delivery O2 Flow Rate FiO2 02/13/17 09:48 92 20 88 21 02/13/17 07:46 98.4 163/95 02/13/17 04:37 Nasal Cannula 2.0 Intake and Output 02/12/17 02/12/17 02/13/17 15:00 23:00 07:00 Intake Total 500 ml 500 ml Output Total 3000 ml 400 ml Balance -2500 ml 100 ml Exam HEENT exam; supple neck, positive JVD. No lymphadenopathy. Midline trachea. No thyromegaly. Patient has fair dentition. Chest exam; diminished but clear breath sounds. S1-S2 audible, no murmurs. Regular rhythm. Abdomen exam; soft, nontender. No organomegaly. Bowel sounds audible. Extremity exam; no edema. There is an AV shunt in the right arm. 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 Results Result Diagram: 02/13/1742602/13/17426 Results 24 hrs Laboratory Tests Test 02/13/17 04:27 White Blood Count 5.2 Red Blood Count 3.17 L Hemoglobin 8.9 L Hematocrit 27.9 L Mean Corpuscular Volume 88.0 Mean Corpuscular Hemoglobin 28.1 L Mean Corpuscular Hemoglobin Concent 31.9 L Red Cell Distribution Width 15.7 H Platelet Count 174 # Mean Platelet Volume 11.3 H Neutrophils % 73.1 Lymphocytes % 14.7 L Monocytes % 9.1 Eosinophils % 2.1 Basophils % 0.4 Nucleated Red Blood Cells % 0.0 Neutrophils # 3.8 Lymphocytes # 0.8 Monocytes # 0.5 Eosinophils # 0.1 Basophils # 0.0 Nucleated Red Blood Cells # 0.0 Prothrombin Time 14.9 H Prothrombin Time Ratio 1.2 INR International Normalized Ratio 1.16 Activated Partial Thromboplast Time 40.2 H Sodium Level 139 Potassium Level 4.7 Chloride Level 99 Carbon Dioxide Level 30 Anion Gap 15 Blood Urea Nitrogen 43 H Creatinine 8.89 H Glucose Level 88 Calcium Level 9.1 Total Bilirubin 0.1 L Direct Bilirubin 0.00 Indirect Bilirubin 0.1 Aspartate Amino Transf (AST/SGOT) 16 Alanine Aminotransferase (ALT/SGPT) 31 Alkaline Phosphatase 86 Total Protein 6.6 Albumin 3.7 Globulin 2.90 Albumin/Globulin Ratio 1.27 Medications Medications Current Medications Hydralazine HCl (Apresoline) 20 mg Q4H PRN IV ELEVATED SYSTOLIC BP Last administered on 02/12/17 16:00; Admin Dose 20 MG; Start 02/08/17 at 07:00 Hydralazine HCl (Apresoline) 10 mg Q4H PRN IV ELEVATED SYSTOLIC BP Last administered on 02/11/17 00:03; Admin Dose 10 MG; Start 02/08/17 at 07:00 Ondansetron HCl (Zofran Inj) 4 mg Q6H PRN IV NAUSEA AND/OR VOMITING; Start at 10:30 Acetaminophen (Tylenol Tab) 650 mg Q6H PRN PO PAIN LEVEL 1-3 OR FEVER; Start at 10:30 Acetaminophen (Tylenol Supp) 650 mg Q6H PRN [place] PAIN LEVEL 1-3 OR FEVER; Start 02/08/17 at 10:30 Acetaminophen/ Hydrocodone Bitart ([place] (5/325)) 1 tab Q6H PRN PO MODERATE PAIN LEVEL 4-6; Start 02/08/17 at 10:30 Docusate Sodium (Colace) 100 mg Q12H PRN PO CONSTIPATION Last administered on 09:35; Admin Dose 100 MG; Start 02/08/17 at 10:30 Amlodipine Besylate (Norvasc) 10 mg DAILY PO Last administered on 02/13/17 08: 54; Admin Dose 10 MG; Start 02/09/17 at 09:00 Benzonatate (Tessalon) 100 mg TID PO Last administered on 02/13/17 08:53; Admin Dose 100 MG; Start 02/08/17 at 13:00 Doxycycline Hyclate (Vibramycin) 100 mg BID PO Last administered on 02/13/17 08:53; Admin Dose 100 MG; Start 02/09/17 at 09:00 Epoetin Duncan (Epogen (Esrd)) 10,000 units TuThSa@17 SC Last administered on 17:53; Admin Dose 10,000 UNITS; Start 02/10/17 at 17:00 Valsartan (Diovan) 160 mg BID PO Last administered on 02/13/17 08:54; Admin Dose 160 MG; Start 02/11/17 at 21:00 Promethazine HCl/ Codeine (Phenergan/ Codeine) 10 ml Q4H PRN PO COUGH; Start at 13:30 Metoprolol Tartrate (Lopressor) 75 mg BID PO Last administered on 02/13/17 08: 53; Admin Dose 75 MG; Start 02/12/17 at 21:00 KESHA TREVIÑO Feb 13, 2017 11:42
--- NOTE | 2017-02-13 11:51 | PN ---
Date/Time of Note Date/Time of Note DATE: 02/13/17 TIME: 11:50 Assessment/Plan VTE Prophylaxis VTE Prophylaxis Intervention: SCD's Lines/Catheters [facility] Urinary Cath still in place: No Assessment/Plan Assessment/Plan 1. Persistent nonproductive cough (>3 weeks) likely 2/2 residual from recent pneumonia versus acute on chronic bronchitis. Improved significantly. 02/08/2017: CT chest without contrast. Unchanged appearance of mediastinal lymphadenopathy, likely reactive. -Continue cough suppressants -ID evaluation greatly appreciated-- On Doxycycline- F/u final culture. -Appreciate Pulmonary eval and no need for bronchoscopy. 2. Acute on chronic Hypoxemic respiratory failure, likely 2/2 volume overload with ESRD /diastolic HF vs possible obesity-induced hypoventilation. --Fluid removal with hemodialysis. Monitor intake and output closely. -Continue around the clock and PRN bronchodilators 3. Elevated BNP, likely 2/2 poor renal clearance with diastolic HF. echo with preserved EF. 4. End-stage renal disease, on hemodialysis Tuesday, and Tuesday. Access site right upper extremity AV shunt. -Nephrology on board and we will follow recommendations. -Monitor renal function closely. 5. Hypertension, escalated. now stable -on Diovan/ CCB/BB. -Appreciate cards eval 6. Mineral bone disorder. -Continue home medications. 7. Anemia of chronic kidney disease. -Epogen per nephro. H&H stable. Will monitor. 8. Possible Sleep apnea. --Recommend outpatient sleep study 9.Obesity. -weight reduction advised. DVT prophylaxis: SCDs Plan: Overall patient with significant improvement in his symptoms. Still c/o cough, paln for HD today, AM CXR ordered, if improvement then plan for d/c home on Tuesday Exam/Review of Systems Vital Signs Vitals Vital Signs Date Time Temp Pulse Resp B/P Pulse Ox O2 Delivery O2 Flow Rate FiO2 02/13/17 09:48 92 20 88 21 02/13/17 07:46 98.4 163/95 02/13/17 07:40 Nasal Cannula 3.0 Intake and Output 02/12/17 02/12/17 02/13/17 15:00 23:00 07:00 Intake Total 500 ml 500 ml Output Total 3000 ml 400 ml Balance -2500 ml 100 ml Exam General: Well developed,adequately built, not in any acute distress . HEENT: Normocephalic, Atraumatic, No laceration or hematoma; Eyes: PEERL, Conjunctiva clear, Anicteric sclera Neck: Supple without any lymphadenopathy, nontender, no JVD, no carotid bruits, trachea midline, no thyromegaly Cardiac: S1, S2 auscultated, regular rhythm and rate, no mumurs or gallop Pulmonary: Diminished bibasilar. Normal respiratory effort. GI: Abdomen normal to inspection. Soft, non tender, non- distended, no masses, no rebound tenderness or guarding. Bowel sounds active on all four quadrants Genitourinary: Deferred Extremities: No cyanosis, clubbing, or edema. Pulses [2+] bilaterally. Full ROM on all four extremities. No focal weakness appreciated. Neurologic: Alert to person, place, time, and situation. Affect appropriate, intact sensation. Skin: Clean,dry, and intact. No ecchymosis, no rashes, or lesions Access: Right upper extremity AV shunt. Results Result Diagram: 02/13/177 02/13/17 0427 Results 24 hrs Laboratory Tests Test 02/13/17 04:27 White Blood Count 5.2 Red Blood Count 3.17 L Hemoglobin 8.9 L Hematocrit 27.9 L Mean Corpuscular Volume 88.0 Mean Corpuscular Hemoglobin 28.1 L Mean Corpuscular Hemoglobin Concent 31.9 L Red Cell Distribution Width 15.7 H Platelet Count 174 # Mean Platelet Volume 11.3 H Neutrophils % 73.1 Lymphocytes % 14.7 L Monocytes % 9.1 Eosinophils % 2.1 Basophils % 0.4 Nucleated Red Blood Cells % 0.0 Neutrophils # 3.8 Lymphocytes # 0.8 Monocytes # 0.5 Eosinophils # 0.1 Basophils # 0.0 Nucleated Red Blood Cells # 0.0 Prothrombin Time 14.9 H Prothrombin Time Ratio 1.2 INR International Normalized Ratio 1.16 Activated Partial Thromboplast Time 40.2 H Sodium Level 139 Potassium Level 4.7 Chloride Level 99 Carbon Dioxide Level 30 Anion Gap 15 Blood Urea Nitrogen 43 H Creatinine 8.89 H Glucose Level 88 Calcium Level 9.1 Total Bilirubin 0.1 L Direct Bilirubin 0.00 Indirect Bilirubin 0.1 Aspartate Amino Transf (AST/SGOT) 16 Alanine Aminotransferase (ALT/SGPT) 31 Alkaline Phosphatase 86 Total Protein 6.6 Albumin 3.7 Globulin 2.90 Albumin/Globulin Ratio 1.27 Medications Medications Current Medications Hydralazine HCl (Apresoline) 20 mg Q4H PRN IV ELEVATED SYSTOLIC BP Last administered on 02/12/17 16:00; Admin Dose 20 MG; Start 02/08/17 at 07:00 Hydralazine HCl (Apresoline) 10 mg Q4H PRN IV ELEVATED SYSTOLIC BP Last administered on 02/11/17 00:03; Admin Dose 10 MG; Start 02/08/17 at 07:00 Ondansetron HCl (Zofran Inj) 4 mg Q6H PRN IV NAUSEA AND/OR VOMITING; Start at 10:30 Acetaminophen (Tylenol Tab) 650 mg Q6H PRN PO PAIN LEVEL 1-3 OR FEVER; Start at 10:30 Acetaminophen (Tylenol Supp) 650 mg Q6H PRN [place] PAIN LEVEL 1-3 OR FEVER; Start 02/08/17 at 10:30 Acetaminophen/ Hydrocodone Bitart ([place] (5/325)) 1 tab Q6H PRN PO MODERATE PAIN LEVEL 4-6; Start 02/08/17 at 10:30 Docusate Sodium (Colace) 100 mg Q12H PRN PO CONSTIPATION Last administered on 09:35; Admin Dose 100 MG; Start 02/08/17 at 10:30 Amlodipine Besylate (Norvasc) 10 mg DAILY PO Last administered on 02/13/17 08: 54; Admin Dose 10 MG; Start 02/09/17 at 09:00 Benzonatate (Tessalon) 100 mg TID PO Last administered on 02/13/17 08:53; Admin Dose 100 MG; Start 02/08/17 at 13:00 Doxycycline Hyclate (Vibramycin) 100 mg BID PO Last administered on 02/13/17 08:53; Admin Dose 100 MG; Start 02/09/17 at 09:00 Epoetin [place] (Epogen (Esrd)) 10,000 units TuThSa@17 SC Last administered on 17:53; Admin Dose 10,000 UNITS; Start 02/10/17 at 17:00 Valsartan (Diovan) 160 mg BID PO Last administered on 02/13/17 08:54; Admin Dose 160 MG; Start 02/11/17 at 21:00 Promethazine HCl/ Codeine (Phenergan/ Codeine) 10 ml Q4H PRN PO COUGH; Start at 13:30 Metoprolol Tartrate (Lopressor) 75 mg BID PO Last administered on 02/13/17 08: 53; Admin Dose 75 MG; Start 02/12/17 at 21:00 JAKE YAÑEZ MD Feb 13, 2017 11:51
--- NOTE | 2017-02-13 11:57 | PDOCDIS ---
Discharge Instructions CONDITION Patient Condition: Good HOME CARE INSTRUCTIONS: Special Diet: renal ACTIVITY: Activity Restrictions: Slowly Increase Activity Rest between Activity Avoid heavy lifting Avoid Heavy Housework FOLLOW UP/APPOINTMENTS Follow-up Plan follow up with his own PMD in 1-2 week. Follow up with pulmonary as outpatient in 1-2 weeks after discharge ( Dr.Sanjay Brower). 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
[2017-02-13] MEDS ORDERED: DOXY100T2 PO (11:59)
[2017-02-13] MEDS ORDERED: METO-429 PO (11:59)
[2017-02-13] MEDS ORDERED: VALS80TA2 PO (11:59)
[2017-02-13] MEDS ORDERED: GUAI-637 PO (12:00)
[2017-02-13 12:14] LABS: AADO2 Arterial 31.1 mmHg (7.0-24.0); Allen Test ACCEPTAB; Arterial Base Excess 4.1 mmol/L (-3.0-3); Arterial COHb 0.3 % (0.0-3.0); Arterial Fraction of Oxyhgb 90.9 % (93.0-99.0); Arterial HCO3 29.2 mmol/L (22.0-26.0); Arterial MetHb 0.1 % (0.0-1.5); Arterial Total Hemglobin 10.3 g/dl (12.0-18.0); MODE ROOM AIR
--- NOTE | 2017-02-13 12:26 | RADRPT ---
PROCEDURE: XR Chest. CLINICAL INDICATION: Cough. TECHNIQUE: Two views. Frontal and lateral. COMPARISON: 07/12/2013. FINDINGS: The dialysis catheter previously noted in the right internal vein has been removed. There is atelect asis in the left mid zone. The lungs are otherwise clear. The heart is enlarged para There is no pleural effusion. There is no pneumothorax. IMPRESSION: 1. Dialysis catheter removed. 2. Atelectasis in the left mid lung zone. 3. Cardiomegaly. RPTAT: QQ .Caleb Saldana MD, MD Date Time Electronically viewed and signed by .Caleb Saldana MD, MD on 02/13/2017 12:26 .R/
--- NOTE | 2017-02-13 15:17 | CONS ---
Date/Time of Note Date/Time of Note DATE: 02/13/17 TIME: 15:15 Assessment/Plan Assessment/Plan Additional Assessment/Plan 1. Shortness of breath/congestive heart failure-diastolic acute on chronic by echo this admit 2. Increased BNP. 3. Hypertension, uncontrolled: increase metoprolol to 100 mg BID 4. Abnormal electrocardiogram, 5. Diastolic dysfunction by echo this admit. 6. End stage renal disease on hemodialysis. 7. Upper respiratory infection, cough.: better 8. Anemia. 9. Pericardial effusion-not significant by echo 10. Dyslipidemia-low HDL Recc: Same Rx Consultation Date/Type/Reason Admit Date/Time Feb 08, 2017 at 05:15 Initial Consult Date 02/09/17 Type of Consultation: Pulmonary/critical care Reason for Consultation ROS: No fever, no chills, no nausea, no vomiting, no diarrhea/constipation No recent weight changes No edema, no palpitations No chest pain, no PND, no SOB No dizziness, blurred vision No thirst, no heat or cold intolerance Referring Provider: TEVIN FIORE MD Exam/Review of Systems Vital Signs Vitals Vital Signs Date Time Temp Pulse Resp B/P Pulse Ox O2 Delivery O2 Flow Rate FiO2 02/13/17 14:33 79 20 92 21 02/13/17 07:46 98.4 163/95 02/13/17 07:40 Nasal Cannula 3.0 Intake and Output 02/12/17 02/12/17 02/13/17 15:00 23:00 07:00 Intake Total 500 ml 500 ml Output Total 3000 ml 400 ml Balance -2500 ml 100 ml Exam General: WN/WD HEENT: Unicetric/atraumatic/ no assymetry NECK: JVD not elevated, no thyromegaly, carotids revealed normal upstrokes Lymph: no lymphadenopathy HEART: regular with no S3, I/ systolic murmur at apex LUNGS: clear ABD: soft, NT, ND, +BS, no organomegaly Neuro: no deficit SKIN: no leisons EXT: no edema Results Result Diagram: 02/13/1742602/13/17426 Results 24 hrs Laboratory Tests Test 02/13/17 04:27 02/13/17 10:46 02/13/17 11:51 White Blood Count 5.2 Red Blood Count 3.17 L Hemoglobin 8.9 L Hematocrit 27.9 L Mean Corpuscular Volume 88.0 Mean Corpuscular Hemoglobin 28.1 L Mean Corpuscular Hemoglobin Concent 31.9 L Red Cell Distribution Width 15.7 H Platelet Count 174 # Mean Platelet Volume 11.3 H Neutrophils % 73.1 Lymphocytes % 14.7 L Monocytes % 9.1 Eosinophils % 2.1 Basophils % 0.4 Nucleated Red Blood Cells % 0.0 Neutrophils # 3.8 Lymphocytes # 0.8 Monocytes # 0.5 Eosinophils # 0.1 Basophils # 0.0 Nucleated Red Blood Cells # 0.0 Prothrombin Time 14.9 H Prothrombin Time Ratio 1.2 INR International Normalized Ratio 1.16 Activated Partial Thromboplast Time 40.2 H Sodium Level 139 Potassium Level 4.7 Chloride Level 99 Carbon Dioxide Level 30 Anion Gap 15 Blood Urea Nitrogen 43 H Creatinine 8.89 H Glucose Level 88 Calcium Level 9.1 Total Bilirubin 0.1 L Direct Bilirubin 0.00 Indirect Bilirubin 0.1 Aspartate Amino Transf (AST/SGOT) 16 Alanine Aminotransferase (ALT/SGPT) 31 Alkaline Phosphatase 86 Total Protein 6.6 Albumin 3.7 Globulin 2.90 Albumin/Globulin Ratio 1.27 Blood Gas Specimen Source Blood arterial Arterial Blood Date Drawn 02/13/2017 12:02:32 PM Arterial Blood pH (Temp corrected) 7.420 Arterial Blood pCO2 (Temp correct) 46.0 H Arterial Blood pO2 (Temp corrected) 63.5 L Arterial Blood HCO3 29.2 H Arterial Blood Base Excess 4.1 H Arterial Blood Oxygen Saturation 91.3 L [place] Test ACCEPTAB Arterial Blood Gas Puncture Site Left Radial Arterial Blood Carboxyhemoglobin 0.3 Arterial Blood Methemoglobin 0.1 Blood Gas A-a O2 Differential 31.1 H Oxyhemoglobin Percent 90.9 L Total Hemoglobin 10.3 L Blood Gas Temperature 37.0 Blood Gas Modality ROOM AIR FiO2 21.0 Blood Gas Notified Whom DS Blood Gas Notified Time 02/13/2017 12:13:54 PM Lab Scanned Report REFERENCE LAB Medications Medications Current Medications Hydralazine HCl (Apresoline) 20 mg Q4H PRN IV ELEVATED SYSTOLIC BP Last administered on 02/12/17 16:00; Admin Dose 20 MG; Start 02/08/17 at 07:00 Hydralazine HCl (Apresoline) 10 mg Q4H PRN IV ELEVATED SYSTOLIC BP Last administered on 02/11/17 00:03; Admin Dose 10 MG; Start 02/08/17 at 07:00 Ondansetron HCl (Zofran Inj) 4 mg Q6H PRN IV NAUSEA AND/OR VOMITING; Start at 10:30 Acetaminophen (Tylenol Tab) 650 mg Q6H PRN PO PAIN LEVEL 1-3 OR FEVER; Start at 10:30 Acetaminophen (Tylenol Supp) 650 mg Q6H PRN [place] PAIN LEVEL 1-3 OR FEVER; Start 02/08/17 at 10:30 Acetaminophen/ Hydrocodone Bitart ([place] (5/325)) 1 tab Q6H PRN PO MODERATE PAIN LEVEL 4-6; Start 02/08/17 at 10:30 Docusate Sodium (Colace) 100 mg Q12H PRN PO CONSTIPATION Last administered on 09:35; Admin Dose 100 MG; Start 02/08/17 at 10:30 Amlodipine Besylate (Norvasc) 10 mg DAILY PO Last administered on 02/13/17 08: 54; Admin Dose 10 MG; Start 02/09/17 at 09:00 Benzonatate (Tessalon) 100 mg TID PO Last administered on 02/13/17 12:56; Admin Dose 100 MG; Start 02/08/17 at 13:00 Doxycycline Hyclate (Vibramycin) 100 mg BID PO Last administered on 02/13/17 08:53; Admin Dose 100 MG; Start 02/09/17 at 09:00 Epoetin [place] (Epogen (Esrd)) 10,000 units TuThSa@17 SC Last administered on 17:53; Admin Dose 10,000 UNITS; Start 02/10/17 at 17:00 Valsartan (Diovan) 160 mg BID PO Last administered on 02/13/17 08:54; Admin Dose 160 MG; Start 02/11/17 at 21:00 Promethazine HCl/ Codeine (Phenergan/ Codeine) 10 ml Q4H PRN PO COUGH; Start at 13:30 Metoprolol Tartrate (Lopressor) 75 mg BID PO Last administered on 02/13/17 08: 53; Admin Dose 75 MG; Start 02/12/17 at 21:00 MICKIE PEREIRA MD Feb 13, 2017 15:17
[2017-02-13 19:20] VITALS: BP 147/78; RESP 18
[2017-02-13] MEDS: METOPROLOL 100 MG TAB PO SCH (20:45)
[2017-02-13] MEDS ORDERED: METOPROLOL 25 MG TAB PO SCH (21:00)
[2017-02-14] MEDS: ALBUTEROL/IPRATROPIUM (NEB) 3 ML AMP HHN SCH ×4 (01:03→13:59)
[2017-02-14 01:49] VITALS: BP 152/82; RESP 18
[2017-02-14 05:53] LABS: BASOPHILS % 0.4 % (0.0-2.0); EOSINOPHILS # 0.1 10^3/ul (0.0-0.5); EOSINOPHILS % 2.5 % (0.0-7.0); HEMATOCRIT 26.7 % (42.0-52.0); HEMOGLOBIN 8.6 g/dl (14.0-18.0); LYMPHOCYTES # 1.1 10^3/ul (0.8-2.9); LYMPHOCYTES % 18.7 % (15.0-51.0); MEAN CORPUSCULAR HEMOGLOBIN 28.4 pg (29.0-33.0); MEAN CORPUSCULAR HGB CONC 32.2 g/dl (32.0-37.0); MEAN CORPUSCULAR VOLUME 88.1 fl (82.0-101.0); MONOCYTE # 0.6 10^3/ul (0.3-0.9); MONOCYTES % 9.8 % (0.0-11.0); NEUTROPHIL # 3.8 10^3/ul (1.6-7.5); NEUTROPHILS % 68.2 % (39.0-77.0); PLATELET COUNT 165 10^3/UL (140-415); RED BLOOD COUNT 3.03 10^6/ul (4.70-6.10); RED CELL DISTRIBUTION WIDTH 15.6 % (11.5-14.5); WHITE BLOOD COUNT 5.6 10^3/ul (4.8-10.8)
[2017-02-14 06:10] LABS: INR 1.11; PROTIME 14.3 Sec (12.2-14.2); PT RATIO 1.1
[2017-02-14 06:28] LABS: CALCIUM 8.8 mg/dl (8.4-10.2); CREATININE 12.12 mg/dl (0.61-1.24); POTASSIUM 5.1 mmol/L (3.5-5.1)
--- NOTE | 2017-02-14 07:36 | CONS ---
Date/Time of Note Date/Time of Note DATE: 02/14/17 TIME: 07:35 Assessment/Plan Assessment/Plan Chief Complaint/Hosp Course 1) persistent cough without much in way of constitutional symptoms started on vanco/merrem and pt states he is feeling better pt unable to bring up phlegm CT chest shows some atelectasis and mediastinal LN's which were present before the CT chest is much improved c/w 11/2016 get nasal swab for MRSA, send urine for histoplasma Ag check procalcitonin, ESR, CRP, LDH and GABE level doubt pt has mycobacterial, fungal, viral etiology at this time (all were negative in 11/2016) doubt he has a vasculitis, his LORIN and ANCA were neg in 11/2016 non specific pneumonitis is possible but this would require lung bx for diagnosis continue with merrem and change vanco to doxy 02/10 - pt improved but doubt he has pneumonia, perhaps some bronchitis but SOB is likely due to some residual scarring from prior infection in november and diastolic dysfunction merrem was stopped, I agree continue with doxy which will also cover atypicals like azithro d/c azithro 02/11 - no change on doxycycline for a 10 day course 02/14 - continue doxy thru 02/18 GABE level was negative I will sign off on case 2) ESRD on HD 3) HTN 4) GPR in blood is a diptheroid 02/11- this is a skin contaminant and no treatment is needed for it repeat blood cx are NGTD Problems: Consultation Date/Type/Reason Admit Date/Time Feb 08, 2017 at 05:15 Initial Consult Date 02/09/17 Type of Consultation: ID Referring Provider: TEVIN FIORE MD 24 HR Interval Summary Free Text/Dictation breathing is better no N, V, D Exam/Review of Systems Vital Signs Vitals Vital Signs Date Time Temp Pulse Resp B/P Pulse Ox O2 Delivery O2 Flow Rate FiO2 02/14/17 05:46 81 20 93 21 02/14/17 01:49 98.3 152/82 02/13/17 07:40 Nasal Cannula 3.0 Intake and Output 02/13/17 02/13/17 02/14/17 15:00 23:00 07:00 Intake Total 500 ml 420 ml Output Total 200 ml Balance 300 ml 420 ml Exam Constitutional: alert, oriented Eyes: nl sclera ENMT: mucosa pink and moist Respiratory: clear to auscultation Cardiovascular: regular rate and rhythm Gastrointestinal: soft Results Result Diagram: 02/14/17 0432 02/14/17 0435 Results 24 hrs Laboratory Tests Test 02/13/17 10:46 02/13/17 11:51 02/14/17 04:32 02/14/17 04:35 Blood Gas Specimen Source Blood arterial Arterial Blood Date Drawn 02/13/2017 12:02:32 PM Arterial Blood pH (Temp corrected) 7.420 Arterial Blood pCO2 (Temp correct) 46.0 H Arterial Blood pO2 (Temp corrected) 63.5 L Arterial Blood HCO3 29.2 H Arterial Blood Base Excess 4.1 H Arterial Blood Oxygen Saturation 91.3 L [place] Test ACCEPTAB Arterial Blood Gas Puncture Site Left Radial Arterial Blood Carboxyhemoglobin 0.3 Arterial Blood Methemoglobin 0.1 Blood Gas A-a O2 Differential 31.1 H Oxyhemoglobin Percent 90.9 L Total Hemoglobin 10.3 L Blood Gas Temperature 37.0 Blood Gas Modality ROOM AIR FiO2 21.0 Blood Gas Notified Whom DS Blood Gas Notified Time 02/13/2017 12:13:54 PM Lab Scanned Report REFERENCE LAB White Blood Count 5.6 Red Blood Count 3.03 L Hemoglobin 8.6 L Hematocrit 26.7 L Mean Corpuscular Volume 88.1 Mean Corpuscular Hemoglobin 28.4 L Mean Corpuscular Hemoglobin Concent 32.2 Red Cell Distribution Width 15.6 H Platelet Count 165 Mean Platelet Volume 11.0 H Neutrophils % 68.2 Lymphocytes % 18.7 Monocytes % 9.8 Eosinophils % 2.5 Basophils % 0.4 Nucleated Red Blood Cells % 0.0 Neutrophils # 3.8 Lymphocytes # 1.1 Monocytes # 0.6 Eosinophils # 0.1 Basophils # 0.0 Nucleated Red Blood Cells # 0.0 Prothrombin Time 14.3 H Prothrombin Time Ratio 1.1 INR International Normalized Ratio 1.11 Activated Partial Thromboplast Time 39.0 H Sodium Level 139 Potassium Level 5.1 Chloride Level 101 Carbon Dioxide Level 24 Anion Gap 19 H Blood Urea Nitrogen 64 H Creatinine 12.12 #H Glucose Level 83 Calcium Level 8.8 Medications Medications Current Medications Hydralazine HCl (Apresoline) 20 mg Q4H PRN IV ELEVATED SYSTOLIC BP Last administered on 02/12/17t 16:00; Admin Dose 20 MG; Start 02/08/17 at 07:00 Hydralazine HCl (Apresoline) 10 mg Q4H PRN IV ELEVATED SYSTOLIC BP Last administered on 02/11/17 00:03; Admin Dose 10 MG; Start 02/08/17 at 07:00 Ondansetron HCl (Zofran Inj) 4 mg Q6H PRN IV NAUSEA AND/OR VOMITING; Start at 10:30 Acetaminophen (Tylenol Tab) 650 mg Q6H PRN PO PAIN LEVEL 1-3 OR FEVER; Start at 10:30 Acetaminophen (Tylenol Supp) 650 mg Q6H PRN [place] PAIN LEVEL 1-3 OR FEVER; Start 02/08/17 at 10:30 Acetaminophen/ Hydrocodone Bitart ([place] (5/325)) 1 tab Q6H PRN PO MODERATE PAIN LEVEL 4-6; Start 02/08/17 at 10:30 Docusate Sodium (Colace) 100 mg Q12H PRN PO CONSTIPATION Last administered on 09:35; Admin Dose 100 MG; Start 02/08/17 at 10:30 Amlodipine Besylate (Norvasc) 10 mg DAILY PO Last administered on 02/13/17 08: 54; Admin Dose 10 MG; Start 02/09/17 at 09:00 Benzonatate (Tessalon) 100 mg TID PO Last administered on 02/13/17 20:45; Admin Dose 100 MG; Start 02/08/17 at 13:00 Doxycycline Hyclate (Vibramycin) 100 mg BID PO Last administered on 02/13/17 20:44; Admin Dose 100 MG; Start 02/09/17 at 09:00 Epoetin [place] (Epogen (Esrd)) 10,000 units TuTa@17 SC Last administered on 17:53; Admin Dose 10,000 UNITS; Start 02/10/17 at 17:00 Valsartan (Diovan) 160 mg BID PO Last administered on 02/13/17 20:45; Admin Dose 160 MG; Start 02/11/17 at 21:00 Promethazine HCl/ Codeine (Phenergan/ Codeine) 10 ml Q4H PRN PO COUGH; Start at 13:30 Metoprolol Tartrate (Lopressor) 100 mg BID PO Last administered on 02/13/17t 20 :45; Admin Dose 100 MG; Start 02/13/17 at 21:00 JESSICA MILLER MD Feb 14, 2017 07:36
[2017-02-14 07:50] VITALS: BP 155/84; RESP 20
[2017-02-14] MEDS: SEVELAMER CARBONATE 0.8 GM PKT PO SCH ×2 (08:34→13:15)
[2017-02-14] MEDS: METOPROLOL 100 MG TAB PO SCH (08:35)
[2017-02-14] MEDS: BENZONATATE 100 MG CAP PO SCH ×2 (08:35→13:46)
[2017-02-14] MEDS: AMLODIPINE 10 MG TAB PO SCH (08:36)
[2017-02-14] MEDS: VALSARTAN 80 MG TAB PO SCH (08:37)
[2017-02-14] MEDS: DOXYCYCLINE 100 MG TAB PO SCH (08:37)
--- NOTE | 2017-02-14 10:28 | CONS ---
Date/Time of Note Date/Time of Note DATE: 02/14/17 TIME: 10:20 Assessment/Plan Assessment/Plan Chief Complaint/Hosp Course I. ESRD , on maintenance hemodialysis TTS . He was dialyzed 2 days ago . 2. Cough and SOB . He is feeling better. The pulmonary and infectious disease consultants do not think the patient has pneumonia. More likely he has acute bronchitis and/or some diastolic dysfunction/congestive heart failure. He says that his oxygen saturation decreases below 90 % at night . I will check CXR today , weigh him and walk him while monitoring his oxygen saturation . 3. HTN , his blood pressure is elevated I will start him on valsartan. 4. He may have some component of sleep apnea; therefore, a sleep study is being arranged as an outpatient when he is discharged. 5. He could be discharged to home today with home oxygen and he will resume his outpatient hemodialysis treatments Tuesday in the [facility] dialysis unit where I will follow him. Problems: Consultation Date/Type/Reason Admit Date/Time Feb 08, 2017 at 05:15 Initial Consult Date 02/09/17 Type of Consultation: ID Referring Provider: TEVIN FIORE MD 24 HR Interval Summary Free Text/Dictation He is awake and alert. He denies cough or shortness of breath. His O2 sat on his ABG was 80% with PaO2 of 50. Constitutional: improved, no complaints Exam/Review of Systems Vital Signs Vitals Vital Signs Date Time Temp Pulse Resp B/P Pulse Ox O2 Delivery O2 Flow Rate FiO2 02/14/17 09:01 80 20 21 02/14/17 07:50 98.0 155/84 94 02/13/17 07:40 Nasal Cannula 3.0 Intake and Output 02/13/17 02/13/17 02/14/17 15:00 23:00 07:00 Intake Total 500 ml 420 ml Output Total 200 ml Balance 300 ml 420 ml Exam Constitutional: alert, oriented, well developed Respiratory: clear to auscultation, normal air movement Cardiovascular: regular rate and rhythm Gastrointestinal: non-tender, soft Musculoskeletal: nl extremities to inspection Results Result Diagram: 02/14/17 0432 02/14/17 0435 Results 24 hrs Laboratory Tests Test 02/13/17 10:46 02/13/17 11:51 02/14/17 04:32 02/14/17 04:35 Blood Gas Specimen Source Blood arterial Arterial Blood Date Drawn 02/13/2017 12:02:32 PM Arterial Blood pH (Temp corrected) 7.420 Arterial Blood pCO2 (Temp correct) 46.0 H Arterial Blood pO2 (Temp corrected) 63.5 L Arterial Blood HCO3 29.2 H Arterial Blood Base Excess 4.1 H Arterial Blood Oxygen Saturation 91.3 L [place] Test ACCEPTAB Arterial Blood Gas Puncture Site Left Radial Arterial Blood Carboxyhemoglobin 0.3 Arterial Blood Methemoglobin 0.1 Blood Gas A-a O2 Differential 31.1 H Oxyhemoglobin Percent 90.9 L Total Hemoglobin 10.3 L Blood Gas Temperature 37.0 Blood Gas Modality ROOM AIR FiO2 21.0 Blood Gas Notified Whom DS Blood Gas Notified Time 02/13/2017 12:13:54 PM Lab Scanned Report REFERENCE LAB White Blood Count 5.6 Red Blood Count 3.03 L Hemoglobin 8.6 L Hematocrit 26.7 L Mean Corpuscular Volume 88.1 Mean Corpuscular Hemoglobin 28.4 L Mean Corpuscular Hemoglobin Concent 32.2 Red Cell Distribution Width 15.6 H Platelet Count 165 Mean Platelet Volume 11.0 H Neutrophils % 68.2 Lymphocytes % 18.7 Monocytes % 9.8 Eosinophils % 2.5 Basophils % 0.4 Nucleated Red Blood Cells % 0.0 Neutrophils # 3.8 Lymphocytes # 1.1 Monocytes # 0.6 Eosinophils # 0.1 Basophils # 0.0 Nucleated Red Blood Cells # 0.0 Prothrombin Time 14.3 H Prothrombin Time Ratio 1.1 INR International Normalized Ratio 1.11 Activated Partial Thromboplast Time 39.0 H Sodium Level 139 Potassium Level 5.1 Chloride Level 101 Carbon Dioxide Level 24 Anion Gap 19 H Blood Urea Nitrogen 64 H Creatinine 12.12 #H Glucose Level 83 Calcium Level 8.8 Medications Medications Current Medications Hydralazine HCl (Apresoline) 20 mg Q4H PRN IV ELEVATED SYSTOLIC BP Last administered on 02/12/17 16:00; Admin Dose 20 MG; Start 02/08/17 at 07:00 Hydralazine HCl (Apresoline) 10 mg Q4H PRN IV ELEVATED SYSTOLIC BP Last administered on 02/11/17 00:03; Admin Dose 10 MG; Start 02/08/17 at 07:00 Ondansetron HCl (Zofran Inj) 4 mg Q6H PRN IV NAUSEA AND/OR VOMITING; Start at 10:30 Acetaminophen (Tylenol Tab) 650 mg Q6H PRN PO PAIN LEVEL 1-3 OR FEVER; Start at 10:30 Acetaminophen (Tylenol Supp) 650 mg Q6H PRN [place] PAIN LEVEL 1-3 OR FEVER; Start 02/08/17 at 10:30 Acetaminophen/ Hydrocodone Bitart ([place] (5/325)) 1 tab Q6H PRN PO MODERATE PAIN LEVEL 4-6; Start 02/08/17 at 10:30 Docusate Sodium (Colace) 100 mg Q12H PRN PO CONSTIPATION Last administered on 09:35; Admin Dose 100 MG; Start 02/08/17 at 10:30 Amlodipine Besylate (Norvasc) 10 mg DAILY PO Last administered on 02/14/17 08: 36; Admin Dose 10 MG; Start 02/09/17 at 09:00 Benzonatate (Tessalon) 100 mg TID PO Last administered on 02/14/17 08:35; Admin Dose 100 MG; Start 02/08/17 at 13:00 Doxycycline Hyclate (Vibramycin) 100 mg BID PO Last administered on 02/14/17 08:37; Admin Dose 100 MG; Start 02/09/17 at 09:00 Epoetin Duncan ([facility] ([facility] [place] Last administered on 17:53; Admin Dose 10,000 UNITS; Start 02/10/17 at 17:00 Valsartan (Diovan) 160 mg BID PO Last administered on 02/14/17 08:37; Admin Dose 160 MG; Start 02/11/17 at 21:00 Promethazine HCl/ Codeine (Phenergan/ Codeine) 10 ml Q4H PRN PO COUGH; Start at 13:30 Metoprolol Tartrate (Lopressor) 100 mg BID PO Last administered on 02/14/17 08 :35; Admin Dose 100 MG; Start 02/13/17 at 21:00 TEVIN FIORE MD Feb 14, 2017 10:28
--- NOTE | 2017-02-14 10:54 | CONS ---
Date/Time of Note Date/Time of Note DATE: 02/14/17 TIME: 10:51 Assessment/Plan Assessment/Plan Additional Assessment/Plan Chest x-ray was reviewed from yesterday afternoon which is showing very minimal vascular congestion. Mild cardiomegaly is present. Assessment recommendations; 1. Patient admitted with shortness of breath due to CHF pulmonary edema with significant interval improvement. 2. History of hypertension. 3. History of chronic renal failure, on hemodialysis. 4. Possibly underlying sleep apnea. Continue current treatment. Agree with discharging the patient. Patient will need to have a sleep study done on an outpatient basis. Consultation Date/Type/Reason Admit Date/Time Feb 08, 2017 at 05:15 Initial Consult Date 02/09/17 Type of Consultation: Pulmonary Referring Provider: TEVIN FIORE MD 24 HR Interval Summary Free Text/Dictation Patient condition stable. Denies any shortness of breath, chest pain. General exam; young male, awake alert, currently in no distress. Exam/Review of Systems Vital Signs Vitals Vital Signs Date Time Temp Pulse Resp B/P Pulse Ox O2 Delivery O2 Flow Rate FiO2 02/14/17 09:01 80 20 21 02/14/17 07:50 98.0 155/84 94 02/13/17 07:40 Nasal Cannula 3.0 Intake and Output 02/13/17 02/13/17 02/14/17 15:00 23:00 07:00 Intake Total 500 ml 420 ml Output Total 200 ml Balance 300 ml 420 ml Exam HEENT exam; supple neck, no JVD. No lymphadenopathy. Midline trachea. No thyromegaly. Pharynx is clear. Patient has fair dentition. Chest exam; clear to auscultation. S1-S2 audible, no murmurs. Regular rhythm. Abdomen exam; soft, no organomegaly. Bowel sounds audible. Extremity exam; no edema. Pulses 1+ bilaterally. BASEBALL PITCHER exam; no focal deficit. Results Result Diagram: 02/14/17 0432 02/14/17 0435 Results 24 hrs Laboratory Tests Test 02/13/17 11:51 02/14/17 04:32 02/14/17 04:35 Lab Scanned Report REFERENCE LAB White Blood Count 5.6 Red Blood Count 3.03 L Hemoglobin 8.6 L Hematocrit 26.7 L Mean Corpuscular Volume 88.1 Mean Corpuscular Hemoglobin 28.4 L Mean Corpuscular Hemoglobin Concent 32.2 Red Cell Distribution Width 15.6 H Platelet Count 165 Mean Platelet Volume 11.0 H Neutrophils % 68.2 Lymphocytes % 18.7 Monocytes % 9.8 Eosinophils % 2.5 Basophils % 0.4 Nucleated Red Blood Cells % 0.0 Neutrophils # 3.8 Lymphocytes # 1.1 Monocytes # 0.6 Eosinophils # 0.1 Basophils # 0.0 Nucleated Red Blood Cells # 0.0 Prothrombin Time 14.3 H Prothrombin Time Ratio 1.1 INR International Normalized Ratio 1.11 Activated Partial Thromboplast Time 39.0 H Sodium Level 139 Potassium Level 5.1 Chloride Level 101 Carbon Dioxide Level 24 Anion Gap 19 H Blood Urea Nitrogen 64 H Creatinine 12.12 #H Glucose Level 83 Calcium Level 8.8 Medications Medications Current Medications Hydralazine HCl (Apresoline) 20 mg Q4H PRN IV ELEVATED SYSTOLIC BP Last administered on 02/12/17 16:00; Admin Dose 20 MG; Start 02/08/17 at 07:00 Hydralazine HCl (Apresoline) 10 mg Q4H PRN IV ELEVATED SYSTOLIC BP Last administered on 02/11/17 00:03; Admin Dose 10 MG; Start 02/08/17 at 07:00 Ondansetron HCl (Zofran Inj) 4 mg Q6H PRN IV NAUSEA AND/OR VOMITING; Start at 10:30 Acetaminophen (Tylenol Tab) 650 mg Q6H PRN PO PAIN LEVEL 1-3 OR FEVER; Start at 10:30 Acetaminophen (Tylenol Supp) 650 mg Q6H PRN [place] PAIN LEVEL 1-3 OR FEVER; Start 02/08/17 at 10:30 Acetaminophen/ Hydrocodone Bitart ([place] (5/325)) 1 tab Q6H PRN PO MODERATE PAIN LEVEL 4-6; Start 02/08/17 at 10:30 Docusate Sodium (Colace) 100 mg Q12H PRN PO CONSTIPATION Last administered on 09:35; Admin Dose 100 MG; Start 02/08/17 at 10:30 Amlodipine Besylate (Norvasc) 10 mg DAILY PO Last administered on 02/14/17 08: 36; Admin Dose 10 MG; Start 02/09/17 at 09:00 Benzonatate (Tessalon) 100 mg TID PO Last administered on 02/14/17 08:35; Admin Dose 100 MG; Start 02/08/17 at 13:00 Doxycycline Hyclate (Vibramycin) 100 mg BID PO Last administered on 02/14/17 08:37; Admin Dose 100 MG; Start 02/09/17 at 09:00 Epoetin Duncan (Epogen (Esrd)) 10,000 units [facility]@17 SC Last administered on 17:53; Admin Dose 10,000 UNITS; Start 02/10/17 at 17:00 Valsartan (Diovan) 160 mg BID PO Last administered on 02/14/17 08:37; Admin Dose 160 MG; Start 02/11/17 at 21:00 Promethazine HCl/ Codeine (Phenergan/ Codeine) 10 ml Q4H PRN PO COUGH; Start at 13:30 Metoprolol Tartrate (Lopressor) 100 mg BID PO Last administered on 02/14/17 08 :35; Admin Dose 100 MG; Start 02/13/17 at 21:00 KESHA TREVIÑO Feb 14, 2017 10:54
[2017-02-14] MEDS ORDERED: Promethazine/Codeine Syp PO (11:59)
[2017-02-14] MEDS ORDERED: METO-407 PO (11:59)
--- NOTE | 2017-02-14 14:42 | DS ---
Date/Time of Note Date/Time of Note DATE: 02/14/17 TIME: 14:39 Discharge Summary Admission/Discharge Info Admit Date/Time Feb 08, 2017 at 05:15 Discharge Date/Time Discharge Diagnosis 1. Persistent nonproductive cough (>3 weeks) likely 2/2 residual from recent pneumonia versus acute on chronic bronchitis. Resolved 2. Acute on chronic Hypoxemic respiratory failure, likely 2/2 volume overload with ESRD /diastolic HF vs possible sleep apnea 3. Elevated BNP, likely 2/2 poor renal clearance with diastolic HF. echo with preserved EF. 4. End-stage renal disease, on hemodialysis Tuesday, and Tuesday. 5. Hypertension 6. Mineral bone disorder. 7. Anemia of chronic kidney disease. 8. Possible Sleep apnea. --Recommend outpatient sleep study 9.Obesity. -weight reduction advised. Patient Condition: Stable Hx of Present Illness This is a 51-year-old male with a history of end-stage renal disease who is also on hemodialysis on Tuesday, and Tuesday, right upper extremity AV shunt, hypertension, recent pneumonia for which he was treated at [facility], who presented to the emergency room with complaints of nonproductive cough for a 3 month duration associated with worsening shortness of breath for approximately 1 month which is getting worse over the past few days. Patient denied weight loss, night sweats, fever, chills, PND, orthopnea, chest pain, palpitation, nausea, vomiting, abdominal pain or other constitutional symptoms. Apparently, patient was admitted at [facility] [place] [facility] in November 2016 for similar symptoms and was tested for tuberculosis and was negative. He was then treated for pneumonia with improvement in symptoms and was discharged. On arrival, patient was noted with a blood pressure 179/95 . He was saturating 100% on room air.Initial labs with hemoglobin 9.4, hematocrit 29.4, potassium 5.2, BUN 67 and creatinine 11.69. Patient also had elevated BNP 20,100. His chest x-ray showed pulmonary vascular congestion, patchy airspace infiltrates within the right mid/lower and left mid lung zone. Patient was given cefepime and Cipro in the emergency room and was admitted. Hospital Course Patient was continued on IV antibiotics, cough suppressants, [id number] and PRN bronchodilators. Cultures obtained. Patient was evaluated by ID and pulmonary medicine. He was continued on hemodialysis per nephrology colleagues. Renal function was monitored closely. H&H was monitored and remained stable. Patient was also given Epogen per nephrology. He was continued on home medication for underlying hypertension and minimal bone disorders. Patient symptoms improved with cough medications and bronchodilators. He also required oxygen mostly at nighttime. A CT chest without contrast remained unchanged from prior study. There was unchanged appearance of mediastinal lymphadenopathy, likely reactive. 2D echocardiogram with preserved ejection fraction with diastolic dysfunction. Initial blood culture number 1 out of 2 showed Corynebacterium species. He was continued on appropriate antibiotic regimen. A repeat 3 sets of cultures were negative. Patient was also evaluated by cardiology. He was also started on metoprolol to prevent bronchospasm and Coreg was discontinued. He was also continued on amlodipine and Diovan for blood pressure control. Patient was able to tolerate diet and activities. At this time, his symptoms were likely secondary to residual from recent pneumonia versus bronchitis combined with volume overload and diastolic heart failure. Patient also could have sleep apnea and obesity induced hypoventilation. He was recommended to have outpatient sleep study. Case management was consulted for arranging outpatient pulmonary evaluation. Patient continued to require oxygen while he was in-house. Home oxygen was arranged. At this time, he is feeling back to his baseline. Chest x-ray remained stable. There is no further inpatient workup indicated and patient is medically stable for discharge with outpatient follow-up. As per ID recommendation, he will require 5 more days on oral doxycycline. Disposition: Patient will be discharged home. He was instructed to follow-up with his primary care doctor, [facility]ure principal solution specialist and pulmonary medicine. Patient was given prescriptions. Patient and family verbalized discharge instructions. Approximately 60 minutes was spent in coordinating the discharge on this patient. [facility] [Promethazine/Codeine Syp] 5 ML SYRUP No Conflict Check, 10 ML PO Q4H Y for COUGH for 14 Days, #1 BOTTLE Prov:MUSTAFA,LAISHA V. EDUCATIONAL SPEECH LANGUAGE CLINICIAN 02/14/17 Metoprolol Tartrate* (Lopressor*) 100 Mg Tablet, 100 MG PO BID, #60 TAB Prov:MUSTAFA,LAISHA V. EDUCATIONAL SPEECH LANGUAGE CLINICIAN 02/14/17 Guaifenesin* (Robitussin*) 100 Mg/5 Ml Syrup, 100 MG PO Q4H Y for COUGH, #240 ML Prov:JAKE YAÑEZ MD 02/13/17 Doxycycline* (Vibramycin*) 100 Mg Tab, 100 MG PO BID, #20 TAB Prov:JAKE YAÑEZ MD 02/13/17 Valsartan* (Diovan*) 80 Mg Tablet, 160 MG PO BID, #180 TAB Prov:JAKE YAÑEZ MD 02/13/17 Reported Medications Amlodipine Besylate* (Amlodipine Besylate*) 10 Mg Tablet, 10 MG PO DAILY, #30 TAB 11/27/16 Sevelamer Carbonate* (Renvela*) 800 Mg Tablet, 1600 GM PO WITH MEALS, TAB 11/27/16 Discontinued Reported Medications Carvedilol* (Carvedilol*) 12.5 Mg Tablet, 12.5 MG PO BID, #60 TAB 11/27/16 Omeprazole* (Omeprazole*) 20 Mg Capsule.dr, 20 MG PO DAILY, #30 CAP 11/27/16 Losartan Potassium* (Losartan Potassium*) 25 Mg Tablet, 25 MG PO DAILY, TAB 11/27/16 Discontinued Scripts Amoxicillin/Potassium Clav (Amox-Clav 500-125 mg Tablet) 500-125 mg Tab, 1 TAB PO DAILY for 4 Days, #4 TAB Prov:LAWRENCE MCDUFFIE MD 12/18/16 Doxycycline* (Vibramycin*) 100 Mg Tab, 100 MG PO BID for 4 Days, #8 TAB Prov:LAWRENCE MCDUFFIE MD 12/18/16 Follow-up Plan follow up with his own PMD in 1-2 week. Follow up with pulmonary as outpatient in 1-2 weeks after discharge ( Dr.Sanjay Brower). Follow up at HD unit for scheduled HD as per his azure principal solution specialist Primary Care Provider Rom Tinoco MD Pending Labs Laboratory Tests Test 02/14/17 04:32 02/14/17 04:35 White Blood Count 5.610^3/ul (4.8-10.8) Red Blood Count 3.0310^6/ul (4.70-6.10) Hemoglobin 8.6g/dl (14.0-18.0) Hematocrit 26.7% (42.0-52.0) Mean Corpuscular Volume 88.1fl (82.0-101.0) Mean Corpuscular Hemoglobin 28.4pg (29.0-33.0) Mean Corpuscular Hemoglobin Concent 32.2g/dl (32.0-37.0) Red Cell Distribution Width 15.6% (11.5-14.5) Platelet Count 61615^3/UL (140-415) Mean Platelet Volume 11.0fl (7.4-10.4) Neutrophils % 68.2% (39.0-77.0) Lymphocytes % 18.7% (15.0-51.0) Monocytes % 9.8% (0.0-11.0) Eosinophils % 2.5% (0.0-7.0) Basophils % 0.4% (0.0-2.0) Nucleated Red Blood Cells % 0.0/100WBC (0.0-0.0) Neutrophils # 3.810^3/ul (1.6-7.5) Lymphocytes # 1.110^3/ul (0.8-2.9) Monocytes # 0.610^3/ul (0.3-0.9) Eosinophils # 0.110^3/ul (0.0-0.5) Basophils # 0.010^3/ul (0.0-0.1) Nucleated Red Blood Cells # 0.010^3/ul (0.0-0.0) Prothrombin Time 14.3Sec (12.2-14.2) Prothrombin Time Ratio 1.1 INR International Normalized Ratio 1.11 Activated Partial Thromboplast Time 39.0Sec (25.0-35.0) Sodium Level 139mmol/L (135-144) Potassium Level 5.1mmol/L (3.5-5.1) Chloride Level 101mmol/L (97-110) Carbon Dioxide Level 24mmol/L (21-31) Anion Gap 19 (8-16) Blood Urea Nitrogen 64mg/dl (7-20) Creatinine 12.12mg/dl (0.61-1.24) Glucose Level 83mg/dl (70-220) Calcium Level 8.8mg/dl (8.4-10.2) LAISHA MUSTAFA NP Feb 14, 2017 14:42
== END 2017-02-14 15:00 | disposition home or self-care (01) | DRG 291 ==
LOC: E/R 21:26 → MS1 02-08 05:15
PROVIDERS: ADMIT Family Medicine; ATTEND Family Medicine
PROC: 5A1D60Z (ICD-10-PCS; principal; 2017-02-08)
DX: I13.2 Hypertensive heart and chronic kidney disease with heart failure and with stage 5 chronic kidney disease, or end stage renal disease (principal); J96.21 Acute and chronic respiratory failure with hypoxia; N18.6 End stage renal disease; D69.6 Thrombocytopenia, unspecified; E83.9 Disorder of mineral metabolism, unspecified; I50.33 Acute on chronic diastolic (congestive) heart failure; J98.11 Atelectasis; D63.1 Anemia in chronic kidney disease; M89.9 Disorder of bone, unspecified; E21.3 Hyperparathyroidism, unspecified; Z87.891 Personal history of nicotine dependence; I08.0 Rheumatic disorders of both mitral and aortic valves; E66.9 Obesity, unspecified; Z68.30 Body mass index [BMI] 30.0-30.9, adult; E78.5 Hyperlipidemia, unspecified; G47.30 Sleep apnea, unspecified; R06.89 Other abnormalities of breathing; R59.0 Localized enlarged lymph nodes; R05 Cough
CPT/HCPCS: 36600; 71010; 71020; 71250; 80048; 80053; 80061; 82164; 82550; 82553; 82803; 83036; 83615; 83735; 83880; 84100; 84145; 84443; 84484; 85025; 85610; 85651; 85730; 86140; 87040; 87070; 87086; 90935; 93005; 93306; 94640; 94664; J0360; J0692; J0744; J2185; J3370; J7050; Q4081

== ENCOUNTER 2017-07-24 08:51 | Inpatient (IN) | END 2017-07-27 14:09 | disposition home or self-care (01) | DRG 291 ==